=== PATIENT | female | born 1975 | race Caucasian/White ===

== ENCOUNTER 2021-09-22 15:04 | Emergency (ER) | payer OTHER ==
--- OUTSIDE RECORDS SUMMARY | 2021-09-22 15:14 | XMS REPORT | Continuity of Care Document ---
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 00:00: by mouth [place] 00 at Medical bedtime. Branch sumatriptan 2020-0 Yes [id number] 100mg Take 1 [facility] (IMITREX) 8-11 tablet by it[facility] o f 100 mg 00:00: mouth as [place] tablet 00 needed for Medical Migraine. Branch traZODone 2020-0 Yes [id number] 50mg Take 1 [facility] n[facility] 50 mg 8-11 tablet by [facility] of tablet 00:00: mouth at [place] 00 bedtime. Medical Branch metFORMIN 2020-0 Yes [id number] 500mg Take 1 [facility] 500 mg 8-11 tablet by [facility] of tablet 00:00: mouth [place] 00 daily. Medical Branch SUMAtriptan 2020-0 Yes [id number] 50mg Take 1 [facility] 50 mg 8-11 tablet by [facility] of tablet 00:00: mouth [place] 00 daily. Medical [facility] amitriptyli 2020-0 Yes [id number] 10mg Take 1 [facility] ne 10 mg 8-11 tablet by [facility] of tablet 00:00: mouth at [place] 00 bedtime. Medical [facility] levothyroxi 2020-0 Yes [id number] 100ug Take 1 [facility] ne 8-11 tablet by [facility] of (SYNTHROID) 00:00: mouth [place] 100 mcg 00 every Medical tablet morning. Branch gabapentin 0 Yes [id number] 600mg Take 1 [facility] (NEURONTIN) 8-11 tablet by [facility] of 600 mg 00:00: mouth 3 [place] tablet 00 (three) Medical times Branch daily. phenytoin 2020-0 Yes [id number] 400mg Take 2 [facility] ER 200 mg 8-11 capsules [facility] ER capsule 00:00: by mouth [place] 00 at Medical bedtime. Branch sumatriptan Yes [id number] 100mg Take 1 [facility] (IMITREX) 8-11 tablet by ity o f 100 mg 00:00: mouth as [place] tablet 00 needed for Medical Migraine. Branch traZODone Yes [id number] 50mg Take 1 [facility] 50 mg 8-11 tablet by [facility] of tablet 00:00: mouth at [place] 00 bedtime. Medical [facility] metFORMIN 0 Yes [id number] 500mg Take 1 [facility] 500 mg 8-11 tablet by [facility] of tablet 00:00: mouth [place] 00 daily. Medical [facility] SUMAtriptan 0 Yes [id number] 50mg Take 1 [facility] 50 mg 8-11 tablet by [facility] of tablet 00:00: mouth [place] 00 daily. Medical [facility] amitriptyli Yes [id number] 10mg Take 1 [facility] ne 10 mg 8-11 tablet by [facility] of tablet 00:00: mouth at [place] 00 bedtime. Medical [facility] levothyroxi 0 Yes [id number] 100ug Take 1 [facility] ne 8-11 tablet by [facility] of (SYNTHROID) 00:00: mouth [place] 100 mcg 00 every Medical tablet morning. Branch gabapentin 0 Yes [id number] 600mg Take 1 [facility] (NEURONTIN) 8-11 tablet by [facility] of 600 mg 00:00: mouth 3 [place] tablet 00 (three) Medical times Branch daily. phenytoin 2020-0 Yes [id number] 400mg Take 2 [facility] ER 200 mg 8-11 capsules [facility] ER capsule 00:00: by mouth [place] 00 at Medical bedtime. Branch sumatriptan 2020-0 Yes [id number] 100mg Take 1 [facility] (IMITREX) 8-11 tablet by it[facility] o f 100 mg 00:00: mouth as [place] tablet 00 needed for Medical Migraine. Branch traZODone Yes [id number] 50mg Take 1 [facility] 50 mg 8-11 tablet by [facility] of tablet 00:00: mouth at [place] 00 bedtime. Medical Branch metFORMIN Yes [id number] 500mg Take 1 [facility] 500 mg 8-11 tablet by [facility] of tablet 00:00: mouth [place] 00 daily. Medical Branch SUMAtriptan Yes [id number] 50mg Take 1 [facility] 50 mg 8-11 tablet by [facility] of tablet 00:00: mouth [place] 00 daily. Medical Branch amitriptyli Yes [id number] 10mg Take 1 [facility] ne 10 mg 8-11 tablet by [facility] of tablet 00:00: mouth at [place] 00 bedtime. Medical [facility] phenytoin 2020- No [id number] 400mg Take 2 [facility] ER 200 mg 8-11 11-01 capsules it[facility] o f ER capsule 00:00: 00:00 by mouth [place] 00 :00 at Medical bedtime. Branch levothyroxi 2020- No [id number] 100ug Take 1 [facility] ne 8-11 10-01 tablet by [facility] of (SYNTHROID) 00:00: 00:00 mouth [place] 100 mcg 00 :00 every Medical tablet morning. Branch gabapentin Yes [id number] 600mg Take 1 [facility] (NEURONTIN) 6-22 tablet by [facility] of 600 mg 00:00: mouth 3 [place] tablet 00 (three) Medical times Branch daily. gabapentin 2020- No [id number] 600mg Take 1 [facility] (NEURONTIN) 6-22 08-10 tablet by it y of 600 mg 00:00: 00:00 mouth 3 [place] tablet 00 :00 (three) Medical times Branch daily. gabapentin Yes [id number] 600mg Take 1 [facility] (NEURONTIN) 5-05 tablet by [facility] of 600 mg 00:00: mouth 3 [place] tablet 00 (three) Medical times Branch daily. gabapentin 2020- No [id number] 600mg Take 1 [facility] (NEURONTIN) 5-05 06-22 tablet by it y of 600 mg 00:00: 00:00 mouth 3 [place] tablet 00 :00 (three) Medical times Branch daily. levothyroxi 2021-0 Yes [id number] 100ug Take 1 [facility] ne 4-01 tablet by [facility] of (SYNTHROID) 00:00: mouth [place] 100 mcg 00 every Medical tablet morning. Branch levothyroxi 2020-0 Yes [id number] 100ug Take 1 [facility] ne 4-01 tablet by [facility] of (SYNTHROID) 00:00: mouth [place] 100 mcg 00 every Medical tablet morning. Branch levothyroxi 2020-0 Yes [id number] 100ug Take 1 [facility] ne 4-01 tablet by [facility] of (SYNTHROID) 00:00: mouth [place] 100 mcg 00 every Medical tablet morning. Branch levothyroxi 2020-0 Yes [id number] 100ug Take 1 [facility] ne 4-01 tablet by [facility] of (SYNTHROID) 00:00: mouth [place] 100 mcg 00 every Medical tablet morning. Branch levothyroxi 2020- No [id number] 100ug Take 1 [facility] ne 4-01 08-10 tablet by [facility] of (SYNTHROID) 00:00: 00:00 mouth [place] 100 mcg 00 :00 every Medical tablet morning. Branch gabapentin 2020-0 Yes [id number] 600mg Take 1 [facility] (NEURONTIN) 3-18 tablet by [facility] of 600 mg 00:00: mouth 3 [place] tablet 00 (three) Medical times Branch daily. gabapentin 2020-0 Yes [id number] 600mg Take 1 [facility] (NEURONTIN) 3-18 tablet by [facility] of 600 mg 00:00: mouth 3 [place] tablet 00 (three) Medical times Branch daily. gabapentin 2020-0 Yes [id number] 600mg Take 1 [facility] (NEURONTIN) 3-18 tablet by [facility] of 600 mg 00:00: mouth 3 [place] tablet 00 (three) Medical times Branch daily. gabapentin 2020-0 Yes [id number] 600mg Take 1 [facility] (NEURONTIN) 3-18 tablet by [facility] of 600 mg 00:00: mouth 3 [place] tablet 00 (three) Medical times Branch daily. gabapentin 2020-0 2020- No [id number] 600mg Take 1 [facility] (NEURONTIN) 3-18 05-05 tablet by it y of 600 mg 00:00: 00:00 mouth 3 [place] tablet 00 :00 (three) Medical times Branch daily. sumatriptan 2020-0 Yes [id number] 100mg Take 1 [facility] (IMITREX) 1-27 tablet by it[facility] o f 100 mg 00:00: mouth as [place] tablet 00 needed for Medical Migraine. Branch sumatriptan 2020-0 Yes [id number] 100mg Take 1 [facility] (IMITREX) 1-27 tablet by ity o f 100 mg 00:00: mouth as [place] tablet 00 needed for Medical Migraine. Branch sumatriptan 2020-0 Yes [id number] 100mg Take 1 [facility] (IMITREX) 1-27 tablet by ity o f 100 mg 00:00: mouth as [place] tablet 00 needed for Medical Migraine. Branch sumatriptan 0 Yes [id number] 100mg Take 1 [facility] (IMITREX) 1-27 tablet by ity o f 100 mg 00:00: mouth as [place] tablet 00 needed for Medical Migraine. Branch sumatriptan 0 Yes [id number] 100mg Take 1 [facility] (IMITREX) 1-27 tablet by it[facility] o f 100 mg 00:00: mouth as [place] tablet 00 needed for Medical Migraine. Branch sumatriptan 0 Yes [id number] 100mg Take 1 [facility] (IMITREX) 1-27 tablet by ity o f 100 mg 00:00: mouth as [place] tablet 00 needed for Medical Migraine. Branch sumatriptan 0 Yes [id number] 100mg Take 1 [facility] (IMITREX) 1-27 tablet by ity o f 100 mg 00:00: mouth as [place] tablet 00 needed for Medical Migraine. Branch sumatriptan 0 Yes [id number] 100mg Take 1 [facility] (IMITREX) 1-27 tablet by ity o f 100 mg 00:00: mouth as [place] tablet 00 needed for Medical Migraine. Branch sumatriptan 0 Yes [id number] 100mg Take 1 [facility] (IMITREX) 1-27 tablet by ity o f 100 mg 00:00: mouth as [place] tablet 00 needed for Medical Migraine. Branch sumatriptan 2020-0 Yes [id number] 100mg Take 1 [facility] (IMITREX) 1-27 tablet by ity o f 100 mg 00:00: mouth as [place] tablet 00 needed for Medical Migraine. Branch sumatriptan 2020-0 Yes [id number] 100mg Take 1 [facility] (IMITREX) 1-27 tablet by it[facility] o f 100 mg 00:00: mouth as [place] tablet 00 needed for Medical Migraine. Branch sumatriptan Yes [id number] 100mg Take 1 [facility] (IMITREX) 10-25 tablet by it[facility] o f 100 mg 00:00: mouth as [place] tablet 00 needed for Medical Migraine. Branch phenytoin 2021- No [id number] 400mg Take 2 [facility] ER 200 mg 10-25 capsules it[facility] o f ER capsule 00:00: 05:59 by mouth [place] 00 :00 at bedtime Medical for 360 Branch days. phenytoin 2021- No [id number] 400mg Take 2 [facility] ER 200 mg 10-25 capsules it[facility] o f ER capsule 00:00: 05:59 by mouth [place] 00 :00 at bedtime Medical for 360 Branch days. phenytoin 2021- No [id number] 400mg Take 2 [facility] ER 200 mg 10-25 capsules it[facility] o f ER capsule 00:00: 05:59 by mouth [place] 00 :00 at bedtime Medical for 360 Branch days. phenytoin 2021- No [id number] 400mg Take 2 [facility] ER 200 mg 10-25 capsules it[facility] o f ER capsule 00:00: 05:59 by mouth [place] 00 :00 at bedtime Medical for 360 Branch days. phenytoin 2021- No [id number] 400mg Take 2 [facility] ER 200 mg 10-25 capsules it[facility] o f ER capsule 00:00: 05:59 by mouth [place] 00 :00 at bedtime Medical for 360 Branch days. phenytoin 2021- No [id number] 400mg Take 2 [facility] ER 200 mg 10-25 capsules it[facility] o f ER capsule 00:00: 05:59 by mouth [place] 00 :00 at bedtime Medical for 360 Branch days. phenytoin 2021- No [id number] 400mg Take 2 [facility] ER 200 mg 10-25 capsules it[facility] o f ER capsule 00:00: 05:59 by mouth [place] 00 :00 at bedtime Medical for 360 Branch days. phenytoin 2021- No [id number] 400mg Take 2 [facility] ER 200 mg 10-25 capsules it[facility] o f ER capsule 00:00: 05:59 by mouth [place] 00 :00 at bedtime Medical for 360 Branch days. phenytoin 2021- No [id number] 400mg Take 2 [facility] ER 200 mg 10-25 capsules it[facility] o f ER capsule 00:00: 05:59 by mouth [place] 00 :00 at bedtime Medical for 360 Branch days. phenytoin 2021- No [id number] 400mg Take 2 [facility] ER 200 mg 10-25 capsules it[facility] o f ER capsule 00:00: 05:59 by mouth [place] 00 :00 at bedtime Medical for 360 Branch days. phenytoin 2021- No [id number] 400mg Take 2 [facility] ER 200 mg 10-25 capsules it[facility] o f ER capsule 00:00: 05:59 by mouth [place] 00 :00 at bedtime Medical for 360 Branch days. phenytoin 2021- No [id number] 400mg Take 2 [facility] ER 200 mg 10-25 capsules ity o f ER capsule 00:00: 05:59 by mouth [place] 00 :00 at bedtime Medical for 360 Branch days. phenytoin 2020- No [id number] 400mg Take 2 [facility] ER 200 mg 10-25-10 capsules ity o f ER capsule 00:00: 00:00 by mouth [place] 00 :00 at bedtime Medical for 360 Branch days. sumatriptan 2020- No [id number] 100mg Take 1 [facility] (IMITREX) 10-25 08-10 tablet by it[facility] of 100 mg 00:00: 00:00 mouth as [place] tablet 00 :00 needed for Medical Migraine. Branch phenytoin 2020- No [id number] 400mg Take 2 [facility] ER 200 mg 10-25 08-10 capsules ity o f ER capsule 00:00: 00:00 by mouth [place] 00 :00 at bedtime Medical for 360 Branch days. sumatriptan 2020- No [id number] 100mg Take 1 [facility] (IMITREX) 10-25 08-10 tablet by [facility]y of 100 mg 00:00: 00:00 mouth as [place] tablet 00 :00 needed for Medical Migraine. Branch gabapentin 2020- Yes [id number] 600mg Take 1 [facility] (NEURONTIN) 1-08 tablet by [facility] of 600 mg 00:00: mouth 3 [place] tablet 00 (three) Medical times Branch daily. gabapentin 2020-0 Yes [id number] 600mg Take 1 [facility] (NEURONTIN) 1-08 tablet by [facility] of 600 mg 00:00: mouth 3 [place] tablet 00 (three) Medical times Branch daily. gabapentin 2020-0 Yes [id number] 600mg Take 1 [facility] (NEURONTIN) 1-08 tablet by [facility] of 600 mg 00:00: mouth 3 [place] tablet 00 (three) Medical times Branch daily. gabapentin 2020-0 Yes [id number] 600mg Take 1 [facility] (NEURONTIN) 1-08 tablet by [facility] of 600 mg 00:00: mouth 3 [place] tablet 00 (three) Medical times Branch daily. gabapentin 2020-0 Yes [id number] 600mg Take 1 [facility] (NEURONTIN) 1-08 tablet by [facility] of 600 mg 00:00: mouth 3 [place] tablet 00 (three) Medical times Branch daily. gabapentin 2020-0 Yes [id number] 600mg Take 1 [facility] (NEURONTIN) 1-08 tablet by [facility] of 600 mg 00:00: mouth 3 [place] tablet 00 (three) Medical times Branch daily. gabapentin 2020-0 Yes [id number] 600mg Take 1 [facility] (NEURONTIN) 1-08 tablet by [facility] of 600 mg 00:00: mouth 3 [place] tablet 00 (three) Medical times Branch daily. gabapentin 2020-0 Yes [id number] 600mg Take 1 [facility] (NEURONTIN) 1-08 tablet by [facility]y of 600 mg 00:00: mouth 3 [place] tablet 00 (three) Medical times Branch daily. gabapentin 2020-0 Yes [id number] 600mg Take 1 [facility] (NEURONTIN) 1-08 tablet by [facility] of 600 mg 00:00: mouth 3 [place] tablet 00 (three) Medical times Branch daily. gabapentin 2020-0 202- No [id number] 600mg Take 1 [facility] (NEURONTIN) 1-08 02-19 tablet by it y of 600 mg 00:00: 00:00 mouth 3 [place] tablet 00 :00 (three) Medical times Branch daily. HYDROcodone 2019-09 2020- No 1{tbl} Take 1 [facility] n[facility] -acetaminop 2-10 12-10 tablet by it y of hen (NORCO) 18:00: 00:00 mouth [place] 10-325 mg 20 :00 every 6 Medical tablet (six) Branch hours as needed for Pain (scale 7-10). HYDROcodone 2019-09 2020- No 1{tbl} Take 1 [facility] nivers -acetaminop 2-10 12-10 tablet by it y of hen (NORCO) 18:00: 00:00 mouth [place] 10-325 mg 20 :00 every 6 Medical tablet (six) Branch hours as needed for Pain (scale 7-10). HYDROcodone 2019-09 2020- No 1{tbl} Take 1 [facility] nivers -acetaminop 2-10 12-10 tablet by it y of hen (NORCO) 18:00: 00:00 mouth [place] 10-325 mg 20 :00 every 6 Medical tablet (six) Branch hours as needed for Pain (scale 7-10). topiramate 2019-09 2020- No 200mg Take 200 [facility] nivers 200 mg 2-10 12-10 mg by ity of tablet 17:54: 00:00 mouth. : Medical Branch topiramate 2019-09 2020- No 200mg Take 200 [facility] nivers 200 mg 2-10 12-10 mg by ity of tablet 17:54: 00:00 mouth. : Medical Branch topiramate 2019-09 2020- No 200mg Take 200 [facility] nivers 200 mg 2-10 12-10 mg by ity of tablet 17:54: 00:00 mouth. 31 :00 Medical Branch amitriptyli 2019-09 Yes [id number] 10mg Take 1 [facility] ne 10 mg 2-10 tablet by ity of tablet 00:00: mouth at [place] 00 bedtime. Medical Branch gabapentin 2019-09 Yes [id number] 600mg Take 1 [facility] (NEURONTIN) 2-10 tablet by ity of 600 mg 00:00: mouth 3 [place] tablet 00 (three) Medical times Branch daily. amitriptyli 2019-09 Yes [id number] 10mg Take 1 [facility] ne 10 mg 2-10 tablet by ity of tablet 00:00: mouth at [place] 00 bedtime. Medical Branch gabapentin 2019-09 Yes [id number] 600mg Take 1 [facility] (NEURONTIN) 2-10 tablet by ity of 600 mg 00:00: mouth 3 [place] tablet 00 (three) Medical times Branch daily. amitriptyli 2019-09 Yes [id number] 10mg Take 1 [facility] ne 10 mg 2-10 tablet by ity of tablet 00:00: mouth at [place] bedtime. Medical Branch amitriptyli 2019- Yes [id number] 10mg Take 1 [facility] ne 10 mg 2-10 tablet by ity of tablet 00:00: mouth at [place] bedtime. Medical Branch amitriptyli 2019- Yes [id number] 10mg Take 1 [facility] ne 10 mg 2-10 tablet by ity of tablet 00:00: mouth at [place] bedtime. Medical Branch amitriptyli 2019- Yes [id number] 10mg Take 1 [facility] ne 10 mg 2-10 tablet by ity of tablet 00:00: mouth at [place] bedtime. Medical Branch amitriptyli 2019-09 Yes [id number] 10mg Take 1 [facility] ne 10 mg 2-10 tablet by ity of tablet 00:00: mouth at [place] bedtime. Medical Branch amitriptyli 2019-09 Yes [id number] 10mg Take 1 [facility] ne 10 mg 2-10 tablet by ity of tablet 00:00: mouth at [place] [address] bedtime. Medical Branch amitriptyli 2019-09 Yes [id number] 10mg Take 1 [facility] ne 10 mg 2-10 tablet by ity of tablet 00:00: mouth at [place] bedtime. Medical Branch amitriptyli 2019-09 Yes [id number] 10mg Take 1 [facility] ne 10 mg 2-10 tablet by ity of tablet 00:00: mouth at [place] [address] bedtime. Medical Branch amitriptyli 2019- Yes [id number] 10mg Take 1 [facility] ne 10 mg 2-10 tablet by ity of tablet 00:00: mouth at [place] [address] bedtime. Medical Branch amitriptyli 2019- Yes [id number] 10mg Take 1 [facility] ne 10 mg 2-10 tablet by ity of tablet 00:00: mouth at [place] bedtime. Medical Branch amitriptyli 2019-09 Yes [id number] 10mg Take 1 [facility] ne 10 mg 2-10 tablet by ity of tablet 00:00: mouth at [place] [address] bedtime. Medical Branch amitriptyli 2019- Yes [id number] 10mg Take 1 [facility] ne 10 mg 2-10 tablet by ity of tablet 00:00: mouth at [place] [address] bedtime. Medical Branch amitriptyli 2019- Yes [id number] 10mg Take 1 [facility] ne 10 mg 2-10 tablet by ity of tablet 00:00: mouth at [place] 00 bedtime. Medical [facility] amitriptyli 2019-09 Yes [id number] 10mg Take 1 [facility] ne 10 mg 2-10 tablet by [facility]y of tablet 00:00: mouth at [place] 00 bedtime. Medical Branch amitriptyli 2019-09 Yes [id number] 10mg Take 1 [facility] ne 10 mg 2-10 tablet by [facility]y of tablet 00:00: mouth at [place] 00 bedtime. Medical [facility] amitriptyli 2019-09 Yes [id number] 10mg Take 1 [facility] ne 10 mg 2-10 tablet by ity of tablet 00:00: mouth at [place] 00 bedtime. Medical Branch amitriptyli 2019-09- No [id number] 10mg Take 1 [facility] ne 10 mg 2-10 08-10 tablet by ity o f tablet 00:00: 00:00 mouth at [place] 00 :00 bedtime. Medical Branch gabapentin 2019-09- No [id number] 600mg Take 1 [facility] (NEURONTIN) 2-10 01-07 tablet by it y of 600 mg 00:00: 00:00 mouth 3 [place] tablet 00 :00 (three) Medical times Branch daily. levothyroxi 2019-09 Yes [id number] 100ug Take 1 [facility] ne 2-03 tablet by ity of (SYNTHROID) 00:00: mouth [place] 100 mcg 00 every Medical tablet morning. Branch levothyroxi 2019-09 Yes [id number] 100ug Take 1 [facility] ne 2-03 tablet by ity of (SYNTHROID) 00:00: mouth [place] 100 mcg 00 every Medical tablet morning. Branch levothyroxi 2019-09 Yes [id number] 100ug Take 1 [facility] ne 2-03 tablet by ity of (SYNTHROID) 00:00: mouth [place] 100 mcg 00 every Medical tablet morning. Branch levothyroxi 2019-09 Yes [id number] 100ug Take 1 [facility] ne 2-03 tablet by ity of (SYNTHROID) 00:00: mouth [place] 100 mcg 00 every Medical tablet morning. Branch levothyroxi 2019-09 Yes [id number] 100ug Take 1 [facility] ne 2-03 tablet by ity of (SYNTHROID) 00:00: mouth [place] 100 mcg 00 every Medical tablet morning. Branch levothyroxi 2019-09 Yes [id number] 100ug Take 1 [facility] ne 2-03 tablet by ity of (SYNTHROID) 00:00: mouth [place] 100 mcg 00 every Medical tablet morning. Branch levothyroxi 2020- Yes [id number] 100ug Take 1 [facility] ne 2-03 tablet by ity of (SYNTHROID) 00:00: mouth [place] 100 mcg 00 every Medical tablet morning. Branch levothyroxi 2019- Yes [id number] 100ug Take 1 [facility] ne 2-03 tablet by ity of (SYNTHROID) 00:00: mouth [place] 100 mcg 00 every Medical tablet morning. Branch levothyroxi 2019- Yes [id number] 100ug Take 1 [facility] ne 2-03 tablet by ity of (SYNTHROID) 00:00: mouth [place] 100 mcg 00 every Medical tablet morning. Branch levothyroxi 2019- Yes [id number] 100ug Take 1 [facility] ne 2-03 tablet by ity of (SYNTHROID) 00:00: mouth [place] 100 mcg 00 every Medical tablet morning. Branch levothyroxi 2019- Yes [id number] 100ug Take 1 [facility] ne 2-03 tablet by ity of (SYNTHROID) 00:00: mouth [place] 100 mcg 00 every Medical tablet morning. Branch levothyroxi 2019- Yes [id number] 100ug Take 1 [facility] ne 2-03 tablet by ity of (SYNTHROID) 00:00: mouth [place] 100 mcg 00 every Medical tablet morning. Branch levothyroxi 2019- Yes [id number] 100ug Take 1 [facility] ne 2-03 tablet by ity of (SYNTHROID) 00:00: mouth [place] 100 mcg 00 every Medical tablet morning. Branch levothyroxi 2019- Yes [id number] 100ug Take 1 [facility] ne 2-03 tablet by ity of (SYNTHROID) 00:00: mouth [place] 100 mcg 00 every Medical tablet morning. Branch levothyroxi 2019- Yes [id number] 100ug Take 1 [facility] ne 2-03 tablet by ity of (SYNTHROID) 00:00: mouth [place] 100 mcg 00 every Medical tablet morning. Branch levothyroxi 2019- Yes [id number] 100ug Take 1 [facility] ne 2-03 tablet by ity of (SYNTHROID) 00:00: mouth [place] 100 mcg 00 every Medical tablet morning. Branch levothyroxi 2019-09- No [id number] 100ug Take 1 [facility] ne 2-03 04-01 tablet by ity of (SYNTHROID) 00:00: 00:00 mouth [place] 100 mcg 00 :00 every Medical tablet morning. Branch topiramate 2020- Yes 200mg Take 200 [facility] 200 mg 1-09 mg by ity of tablet 15:28: mouth. [address] Branch HYDROcodone 2020- Yes 1{tbl} Take 1 [facility] -acetaminop 1-09 tablet by ity of hen (NORCO) 15:28: mouth [place] 10-325 mg 37 every 6 Medical tablet (six) Branch hours as needed for Pain (scale 7-10). topiramate 2020- Yes 200mg Take 200 [facility] 200 mg 1-09 mg by ity of tablet 15:28: mouth. [address] HYDROcodone 2020- Yes 1{tbl} Take 1 Un [facility] -acetaminop 1-09 tablet by ity of hen (NORCO) 15:28: mouth [place] 10-325 mg 37 every 6 Medical tablet (six) Branch hours as needed for Pain (scale 7-10). topiramate 2019- Yes 200mg Take 200 [facility] 200 mg 1-09 mg by ity of tablet 15:28: mouth. [address] Branch HYDROcodone 2020- Yes 1{tbl} Take 1 [facility] -acetaminop 1-09 tablet by ity of hen (NORCO) 15:28: mouth [place] 10-325 mg 37 every 6 Medical tablet (six) Branch hours as needed for Pain (scale 7-10). topiramate 2020- Yes 200mg Take 200 [facility] 200 mg 1-09 mg by ity of tablet 15:28: mouth. [address] HYDROcodone 2020- Yes 1{tbl} Take 1 Un [facility] -acetaminop 1-09 tablet by ity of hen (NORCO) 15:28: mouth [place] 10-325 mg 37 every 6 Medical tablet (six) Branch hours as needed for Pain (scale 7-10). topiramate 2020- Yes 200mg Take 200 [facility] 200 mg 1-09 mg by ity of tablet 15:28: mouth. [address] HYDROcodone 2020- Yes 1{tbl} Take 1 Un [facility] -acetaminop 1-09 tablet by ity of hen (NORCO) 15:28: mouth [place] 10-325 mg 37 every 6 Medical tablet (six) Branch hours as needed for Pain (scale 7-10). topiramate 2020- Yes 200mg Take 200 [facility] [place] 200 mg 1-09 mg by ity of tablet 15:28: mouth. [address] HYDROcodone 2020- Yes 1{tbl} Take 1 Un [facility] -acetaminop 1-09 tablet by ity of hen (NORCO) 15:28: mouth [place] 10-325 mg 37 every 6 Medical tablet (six) Branch hours as needed for Pain (scale 7-10). topiramate 2020- Yes 200mg Take 200 [facility] [place] 200 mg 1-09 mg by ity of tablet 15:28: mouth. [address] HYDROcodone 2020- Yes 1{tbl} Take 1 Un [facility] -acetaminop 1-09 tablet by ity of hen (NORCO) 15:28: mouth [place] 10-325 mg 37 every 6 Medical tablet (six) Branch hours as needed for Pain (scale 7-10). topiramate 2020- Yes 200mg Take 200 [facility] [place] 200 mg 1-09 mg by ity of tablet 15:28: mouth. [address] HYDROcodone 2020- Yes 1{tbl} Take 1 Un [facility] -acetaminop 1-09 tablet by ity of hen (NORCO) 15:28: mouth [place] 10-325 mg 37 every 6 Medical tablet (six) Branch hours as needed for Pain (scale 7-10). topiramate 2020- Yes 200mg Take 200 [facility] [place] 200 mg 1-09 mg by ity of tablet 15:28: mouth. [address] HYDROcodone 2020- Yes 1{tbl} Take 1 Un [facility] -acetaminop 1-09 tablet by ity of hen (NORCO) 15:28: mouth [place] 10-325 mg 37 every 6 Medical tablet (six) Branch hours as needed for Pain (scale 7-10). topiramate 2020- Yes 200mg Take 200 [facility] [place] 200 mg 1-09 mg by ity of tablet 15:28: mouth. [address] HYDROcodone 2020- Yes 1{tbl} Take 1 Un [facility] -acetaminop 1-09 tablet by ity of hen (NORCO) 15:28: mouth [place] 10-325 mg 37 every 6 Medical tablet (six) Branch hours as needed for Pain (scale 7-10). topiramate 2019-09 Yes 200mg Take 200 [facility] 200 mg 1-09 mg by ity of tablet 15:28: mouth. [place] 37 Medical Branch HYDROcodone 2019- Yes 1{tbl} Take 1 Un [facility] -acetaminop 1-09 tablet by ity of hen (NORCO) 15:28: mouth [place] 10-325 mg 37 every 6 Medical tablet (six) Branch hours as needed for Pain (scale 7-10). SUMAtriptan 2019-09 Yes [id number] 50mg Take 1 [facility] 50 mg 0-20 tablet by [facility] of tablet 00:00: mouth [place] 00 daily. Medical Branch SUMAtriptan 2019-09 Yes [id number] 50mg Take 1 [facility] 50 mg 0-20 tablet by [facility]y of tablet 00:00: mouth [place] 00 daily. Medical Branch SUMAtriptan 2019-09 Yes [id number] 50mg Take 1 [facility] 50 mg 0-20 tablet by [facility]y of tablet 00:00: mouth [place] 00 daily. Medical Branch SUMAtriptan 2019-09 Yes [id number] 50mg Take 1 [facility] 50 mg 0-20 tablet by [facility]y of tablet 00:00: mouth [place] 00 daily. Medical Branch SUMAtriptan 2019-09 Yes [id number] 50mg Take 1 [facility] 50 mg 0-20 tablet by [facility]y of tablet 00:00: mouth [place] 00 daily. Medical Branch SUMAtriptan 2019-09 Yes [id number] 50mg Take 1 [facility] 50 mg 0-20 tablet by [facility]y of tablet 00:00: mouth [place] 00 daily. Medical Branch SUMAtriptan 2019-09 Yes [id number] 50mg Take 1 [facility] 50 mg 0-20 tablet by [facility]y of tablet 00:00: mouth [place] 00 daily. Medical Branch SUMAtriptan 2019-09 Yes [id number] 50mg Take 1 [facility] 50 mg 0-20 tablet by [facility]y of tablet 00:00: mouth [place] 00 daily. Medical Branch SUMAtriptan 2019-09 Yes [id number] 50mg Take 1 [facility] 50 mg 0-20 tablet by [facility]y of tablet 00:00: mouth [place] 00 daily. Medical Branch SUMAtriptan 2019-09 Yes [id number] 50mg Take 1 [facility] 50 mg 0-20 tablet by [facility]y of tablet 00:00: mouth [place] 00 daily. Medical Branch SUMAtriptan 2019- Yes [id number] 50mg Take 1 [facility] 50 mg 0-20 tablet by ity of tablet 00:00: mouth [place] 00 daily. [facility] SUMAtriptan 2020-1 Yes [id number] 50mg Take 1 [facility] 50 mg 0-20 tablet by ity of tablet 00:00: mouth [place] 00 daily. [facility] SUMAtriptan 2019-1 Yes [id number] 50mg Take 1 [facility] 50 mg 0-20 tablet by ity of tablet 00:00: mouth [place] 00 daily. [facility] SUMAtriptan 2019- Yes [id number] 50mg Take 1 [facility] 50 mg 0-20 tablet by ity of tablet 00:00: mouth [place] 00 daily. [facility] SUMAtriptan 2019- Yes [id number] 50mg Take 1 [facility] 50 mg 0-20 tablet by ity of tablet 00:00: mouth [place] 00 daily. [facility] SUMAtriptan 2019- Yes [id number] 50mg Take 1 [facility] 50 mg 0-20 tablet by ity of tablet 00:00: mouth [place] 00 daily. [facility] SUMAtriptan 2019- Yes [id number] 50mg Take 1 [facility] 50 mg 0-20 tablet by ity of tablet 00:00: mouth [place] 00 daily. [facility] SUMAtriptan 2019- Yes [id number] 50mg Take 1 [facility] 50 mg 0-20 tablet by ity of tablet 00:00: mouth [place] 00 daily. [facility] SUMAtriptan 2019- Yes [id number] 50mg Take 1 [facility] 50 mg 0-20 tablet by ity of tablet 00:00: mouth [place] 00 daily. [facility] SUMAtriptan 2019-1 Yes [id number] 50mg Take 1 [facility] 50 mg 0-20 tablet by ity of tablet 00:00: mouth [place] 00 daily. [facility] SUMAtriptan 2019- Yes [id number] 50mg Take 1 [facility] 50 mg 0-20 tablet by ity of tablet 00:00: mouth [place] 00 daily. [facility] SUMAtriptan 2019-1 Yes [id number] 50mg Take 1 [facility] 50 mg 0-20 tablet by ity of tablet 00:00: mouth [place] 00 daily. [facility] SUMAtriptan 2019- Yes [id number] 50mg Take 1 [facility] 50 mg 0-20 tablet by ity of tablet 00:00: mouth [place] 00 daily. [facility] SUMAtriptan 2019-09 Yes [id number] 50mg Take 1 [facility] 50 mg 0-20 tablet by ity of tablet 00:00: mouth [place] 00 daily. [facility] SUMAtriptan 2019-09 Yes [id number] 50mg Take 1 [facility] 50 mg 0-20 tablet by ity of tablet 00:00: mouth [place] 00 daily. [facility] SUMAtriptan 2019-09 Yes [id number] 50mg Take 1 [facility] 50 mg 0-20 tablet by ity of tablet 00:00: mouth [place] 00 daily. [facility] SUMAtriptan 2019-09 Yes [id number] 50mg Take 1 [facility] 50 mg 0-20 tablet by ity of tablet 00:00: mouth [place] 00 daily. [facility] SUMAtriptan 2019-09 Yes [id number] 50mg Take 1 [facility] 50 mg 0-20 tablet by ity of tablet 00:00: mouth [place] 00 daily. [facility] SUMAtriptan 2019-09 Yes [id number] 50mg Take 1 [facility] 50 mg 0-20 tablet by ity of tablet 00:00: mouth [place] 00 daily. [facility] SUMAtriptan 2019-09 Yes [id number] 50mg Take 1 [facility] 50 mg 0-20 tablet by ity of tablet 00:00: mouth [place] 00 daily. [facility] SUMAtriptan 2019-09 Yes [id number] 50mg Take 1 [facility] 50 mg 0-20 tablet by ity of tablet 00:00: mouth [place] 00 daily. [facility] SUMAtriptan 2019-09 Yes [id number] 50mg Take 1 [facility] 50 mg 0-20 tablet by ity of tablet 00:00: mouth [place] 00 daily. [facility] SUMAtriptan 2019-09- No [id number] 50mg Take 1 [facility] 50 mg 0-20 08-10 tablet by ity of tablet 00:00: 00:00 mouth [place] 00 :00 daily. [facility] metFORMIN 2019-09- No 500mg Take 500 Un uzma 500 mg 0-08 10-08 mg by ity of tablet 16:06: 00:00 mouth. [place] 50 :00 Medical Branch metFORMIN 2019-09- No 500mg Take 500 Un uzma 500 mg 0-08 10-08 mg by ity of tablet 16:06: 00:00 mouth. [place] 50 :00 [facility] nortriptyli 2019-09- No [id number] 25mg Take 25 mg [facility] ne 0-08 10-08 by mouth 3 ity of (PAMELOR) 16:04: 00:00 (three) [place] 25 mg 08 :00 times Medical capsule daily. Branch nortriptyli 2020-1 2020- No [id number] 25mg Take 25 mg [facility] ne 0-08 10-08 by mouth 3 ity of (PAMELOR) 16:04: 00:00 (three) [place] 25 mg 08 :00 times Medical capsule daily. Branch topiramate 2020-1 Yes 200mg Take 200 Un uzma 200 mg 0-08 mg by ity of tablet 15:28: mouth. [address] Branch topiramate 2019- Yes 200mg Take 200 Un uzma 200 mg 0-08 mg by ity of tablet 15:28: mouth. [address] Branch topiramate 2019- Yes 200mg Take 200 Un uzma 200 mg 0-08 mg by ity of tablet 15:28: mouth. [address] topiramate 2019- Yes 200mg Take 200 Un uzma 200 mg 0-08 mg by ity of tablet 15:28: mouth. [address] topiramate 2019- Yes 200mg Take 200 Un uzma 200 mg 0-08 mg by ity of tablet 15:28: mouth. [address] Branch topiramate 2020-1 Yes 200mg Take 200 Un uzma 200 mg 0-08 mg by ity of tablet 15:28: mouth. [address] Branch HYDROcodone 2019- Yes 1{tbl} Take 1 Un uzma -acetaminop 0-08 tablet by ity of hen (NORCO) 15:28: mouth [place] 10-325 mg 12 every 6 Medical tablet (six) Branch hours as needed for Pain (scale 7-10). HYDROcodone 2019- Yes 1{tbl} Take 1 Un uzma -acetaminop 0-08 tablet by ity of hen (NORCO) 15:28: mouth [place] 10-325 mg 12 every 6 Medical tablet (six) Branch hours as needed for Pain (scale 7-10). HYDROcodone 2019- Yes 1{tbl} Take 1 Un uzma -acetaminop 0-08 tablet by ity of hen (NORCO) 15:28: mouth [place] 10-325 mg 12 every 6 Medical tablet (six) Branch hours as needed for Pain (scale 7-10). HYDROcodone 2019- Yes 1{tbl} Take 1 Un uzma -acetaminop 0-08 tablet by ity of hen (NORCO) 15:28: mouth [place] 10-325 mg 12 every 6 Medical tablet (six) Branch hours as needed for Pain (scale 7-10). HYDROcodone 2019-09 Yes 1{tbl} Take 1 Un uzma -acetaminop 0-08 tablet by ity of hen (NORCO) 15:28: mouth [place] 10-325 mg 12 every 6 Medical tablet (six) Branch hours as needed for Pain (scale 7-10). HYDROcodone 2019-09 Yes 1{tbl} Take 1 Un uzma -acetaminop 0-08 tablet by ity of hen (NORCO) 15:28: mouth [place] 10-325 mg 12 every 6 Medical tablet (six) Branch hours as needed for Pain (scale 7-10). traZODone 2019-09 Yes [id number] 50mg Take 1 U nivers 50 mg 0-08 tablet by ity of tablet 00:00: mouth at [place] 00 bedtime. Medical Branch metFORMIN 2019-09 Yes [id number] 500mg Take 1 [facility] 500 mg 0-08 tablet by ity of tablet 00:00: mouth [place] 00 daily. [facility] SUMAtriptan 2019-09 Yes [id number] BIDPRN. [facility] 6 mg/0.5 mL 0-08 (max of 12 it y of injection 00:00: mg in 24 [place] 00 hours[place] Medical Inject 6 Branch mg under skin followed by another dose one hour later if headache persists traZODone 2019-09 Yes [id number] 50mg Take 1 U nivers 50 mg 0-08 tablet by ity of tablet 00:00: mouth at [place] 00 bedtime. Medical [facility] metFORMIN 2019-09 Yes 500mg Take 1 Unive rs 500 mg 0-08 tablet by ity of tablet 00:00: mouth [place] 00 daily. [facility] SUMAtriptan 2019-09 Yes BIDPRN. Uni vers 6 mg/0.5 mL 0-08 (max of 12 it y of injection 00:00: mg in 24 [place] 00 hours). Medical Inject 6 Branch mg under skin followed by another dose one hour later if headache persists traZODone 2019-09 Yes [id number] 50mg Take 1 U nivers 50 mg 0-08 tablet by ity of tablet 00:00: mouth at [place] 00 bedtime. Medical Branch metFORMIN 2020- Yes 500mg Take 1 Unive rs 500 mg 0-08 tablet by ity of tablet 00:00: mouth [place] 00 daily. [facility] SUMAtriptan 2019-09 Yes BIDPRN. Uni vers 6 mg/0.5 mL 0-08 (max of 12 it y of injection 00:00: mg in 24 [place] 00 hours). Medical Inject 6 Branch mg under skin followed by another dose one hour later if headache persists traZODone 2019-09 Yes [id number] 50mg Take 1 U nivers 50 mg 0-08 tablet by ity of tablet 00:00: mouth at [place] 00 bedtime. Medical [facility] metFORMIN 2019-09 Yes 500mg Take 1 Unive rs 500 mg 0-08 tablet by ity of tablet 00:00: mouth [place] 00 daily. [facility] SUMAtriptan 2019-09 Yes BIDPRN. Uni vers 6 mg/0.5 mL 0-08 (max of 12 it y of injection 00:00: mg in 24 [place] 00 hours). Medical Inject 6 Branch mg under skin followed by another dose one hour later if headache persists traZODone 2019-09 Yes [id number] 50mg Take 1 U nivers 50 mg 0-08 tablet by ity of tablet 00:00: mouth at [place] 00 bedtime. Medical Branch metFORMIN 2019-09 Yes 500mg Take 1 Unive rs 500 mg 0-08 tablet by ity of tablet 00:00: mouth [place] 00 daily. [facility] SUMAtriptan 2019- Yes BIDPRN. Uni vers 6 mg/0.5 mL 0-08 (max of 12 it y of injection 00:00: mg in 24 [place] 00 hours). Medical Inject 6 Branch mg under skin followed by another dose one hour later if headache persists traZODone 2019-09 Yes [id number] 50mg Take 1 U nivers 50 mg 0-08 tablet by ity of tablet 00:00: mouth at [place] 00 bedtime. Medical Branch metFORMIN 2019- Yes 500mg Take 1 Unive rs 500 mg 0-08 tablet by ity of tablet 00:00: mouth [place] 00 daily. [facility] SUMAtriptan 2019- Yes BIDPRN. Uni vers 6 mg/0.5 mL 0-08 (max of 12 it y of injection 00:00: mg in 24 [place] 00 hours). Medical Inject 6 Branch mg under skin followed by another dose one hour later if headache persists traZODone 2019- Yes [id number] 50mg Take 1 U nivers 50 mg 0-08 tablet by ity of tablet 00:00: mouth at [place] 00 bedtime. [facility] metFORMIN 2019- Yes 500mg Take 1 Unive rs 500 mg 0-08 tablet by ity of tablet 00:00: mouth [place] 00 daily. [facility] SUMAtriptan 2019-09 Yes BIDPRN. Uni vers 6 mg/0.5 mL 0-08 (max of 12 it y of injection 00:00: mg in 24 [place] 00 hours). Medical Inject 6 Branch mg under skin followed by another dose one hour later if headache persists traZODone 2019-09 Yes [id number] 50mg Take 1 U nivers 50 mg 0-08 tablet by ity of tablet 00:00: mouth at [place] 00 bedtime. Medical [facility] metFORMIN 2019- Yes 500mg Take 1 Unive rs 500 mg 0-08 tablet by ity of tablet 00:00: mouth [place] 00 daily. [facility] SUMAtriptan 2019-09 Yes BIDPRN. Uni vers 6 mg/0.5 mL 0-08 (max of 12 it y of injection 00:00: mg in 24 [place] 00 hours). Medical Inject 6 Branch mg under skin followed by another dose one hour later if headache persists traZODone 2019-09 Yes [id number] 50mg Take 1 U nivers 50 mg 0-08 tablet by ity of tablet 00:00: mouth at [place] 00 bedtime. Medical Branch metFORMIN 2019- Yes 500mg Take 1 Unive rs 500 mg 0-08 tablet by ity of tablet 00:00: mouth [place] 00 daily. [facility] SUMAtriptan 2020- Yes BIDPRN. Uni vers 6 mg/0.5 mL 0-08 (max of 12 it y of injection 00:00: mg in 24 [place] 00 hours). Medical Inject 6 Branch mg under skin followed by another dose one hour later if headache persists traZODone 2019-09 Yes [id number] 50mg Take 1 U nivers 50 mg 0-08 tablet by ity of tablet 00:00: mouth at [place] 00 bedtime. Medical Branch metFORMIN 2019- Yes 500mg Take 1 Unive rs 500 mg 0-08 tablet by ity of tablet 00:00: mouth [place] 00 daily. [facility] SUMAtriptan 2019- Yes BIDPRN. Uni vers 6 mg/0.5 mL 0-08 (max of 12 it y of injection 00:00: mg in 24 [place] 00 hours). Medical Inject 6 Branch mg under skin followed by another dose one hour later if headache persists traZODone 2019- Yes [id number] 50mg Take 1 U nivers 50 mg 0-08 tablet by ity of tablet 00:00: mouth at [place] 00 bedtime. Medical Branch metFORMIN 2019-09 Yes 500mg Take 1 Unive rs 500 mg 0-08 tablet by ity of tablet 00:00: mouth [place] 00 daily. Medical [facility] SUMAtriptan 2019-09 Yes BIDPRN. Uni vers 6 mg/0.5 mL 0-08 (max of 12 it y of injection 00:00: mg in 24 [place] 00 hours). Medical Inject 6 Branch mg under skin followed by another dose one hour later if headache persists traZODone 2019-09 Yes [id number] 50mg Take 1 U nivers 50 mg 0-08 tablet by ity of tablet 00:00: mouth at [place] 00 bedtime. Medical Branch metFORMIN 2019-09 Yes 500mg Take 1 Unive rs 500 mg 0-08 tablet by ity of tablet 00:00: mouth [place] 00 daily. Medical [facility] SUMAtriptan 2019-09 Yes BIDPRN. Uni vers 6 mg/0.5 mL 0-08 (max of 12 it y of injection 00:00: mg in 24 [place] 00 hours). Medical Inject 6 Branch mg under skin followed by another dose one hour later if headache persists traZODone 2019-09 Yes [id number] 50mg Take 1 U nivers 50 mg 0-08 tablet by ity of tablet 00:00: mouth at [place] 00 bedtime. [facility] metFORMIN 2019- Yes 500mg Take 1 Unive rs 500 mg 0-08 tablet by ity of tablet 00:00: mouth [place] 00 daily. [facility] SUMAtriptan 2019-09 Yes BIDPRN. Uni vers 6 mg/0.5 mL 0-08 (max of 12 it y of injection 00:00: mg in [place] 00 hours). Medical Inject 6 Branch mg under skin followed by another dose one hour later if headache persists traZODone 2019-09 Yes [id number] 50mg Take 1 U nivers 50 mg 0-08 tablet by ity of tablet 00:00: mouth at [place] 00 bedtime. Medical Branch metFORMIN 2019-09 Yes 500mg Take 1 Unive rs 500 mg 0-08 tablet by ity of tablet 00:00: mouth [place] 00 daily. Medical [facility] SUMAtriptan 2019-09 Yes BIDPRN. Uni vers 6 mg/0.5 mL 0-08 (max of 12 it y of injection 00:00: mg in 24 [place] 00 hours). Medical Inject 6 Branch mg under skin followed by another dose one hour later if headache persists traZODone 2019-09 Yes [id number] 50mg Take 1 U nivers 50 mg 0-08 tablet by ity of tablet 00:00: mouth at [place] 00 bedtime. Medical Branch metFORMIN 2019-09 Yes 500mg Take 1 Unive rs 500 mg 0-08 tablet by ity of tablet 00:00: mouth [place] 00 daily. [facility] SUMAtriptan 2019-09 Yes BIDPRN. Uni vers 6 mg/0.5 mL 0-08 (max of 12 it y of injection 00:00: mg in [place] 00 hours). Medical Inject 6 Branch mg under skin followed by another dose one hour later if headache persists traZODone 2019-09 Yes [id number] 50mg Take 1 U nivers 50 mg 0-08 tablet by ity of tablet 00:00: mouth at [place] 00 bedtime. Medical Branch metFORMIN 2019- Yes 500mg Take 1 Unive rs 500 mg 0-08 tablet by ity of tablet 00:00: mouth [place] 00 daily. Medical [facility] SUMAtriptan 2019-09 Yes BIDPRN. Uni vers 6 mg/0.5 mL 0-08 (max of 12 it y of injection 00:00: mg in 24 [place] 00 hours). Medical Inject 6 Branch mg under skin followed by another dose one hour later if headache persists traZODone 2019-09 Yes [id number] 50mg Take 1 U nivers 50 mg 0-08 tablet by ity of tablet 00:00: mouth at [place] 00 bedtime. Medical Branch metFORMIN 2019-09 Yes 500mg Take 1 Unive rs 500 mg 0-08 tablet by ity of tablet 00:00: mouth [place] 00 daily. [facility] SUMAtriptan 2019- Yes BIDPRN. Uni vers 6 mg/0.5 mL 0-08 (max of 12 it y of injection 00:00: mg in 24 [place] 00 hours). Medical Inject 6 Branch mg under skin followed by another dose one hour later if headache persists traZODone 2019- Yes [id number] 50mg Take 1 U nivers 50 mg 0-08 tablet by ity of tablet 00:00: mouth at [place] 00 bedtime. Medical Branch metFORMIN 2019-09 Yes 500mg Take 1 Unive rs 500 mg 0-08 tablet by ity of tablet 00:00: mouth [place] 00 daily. [facility] Branch traZODone 2019-09 Yes [id number] 50mg Take 1 U nivers 50 mg 0-08 tablet by ity of tablet 00:00: mouth at [place] 00 bedtime. Medical Branch metFORMIN 2019-09 Yes 500mg Take 1 Unive rs 500 mg 0-08 tablet by ity of tablet 00:00: mouth [place] 00 daily. [facility] Branch traZODone 2019- Yes [id number] 50mg Take 1 U nivers 50 mg 0-08 tablet by ity of tablet 00:00: mouth at [place] 00 bedtime. [facility] Branch metFORMIN 2019-09 Yes 500mg Take 1 Unive rs 500 mg 0-08 tablet by ity of tablet 00:00: mouth [place] 00 daily. [facility] Branch traZODone 2019- Yes [id number] 50mg Take 1 U nivers 50 mg 0-08 tablet by ity of tablet 00:00: mouth at [place] 00 bedtime. [facility] Branch metFORMIN 2019- Yes 500mg Take 1 Unive rs 500 mg 0-08 tablet by ity of tablet 00:00: mouth [place] 00 daily. [facility] Branch traZODone 2019-09 Yes [id number] 50mg Take 1 U nivers 50 mg 0-08 tablet by ity of tablet 00:00: mouth at [place] 00 bedtime. [facility] metFORMIN 2019- Yes 500mg Take 1 Unive rs 500 mg 0-08 tablet by ity of tablet 00:00: mouth [place] 00 daily. [facility] traZODone 2019- Yes [id number] 50mg Take 1 U nivers 50 mg 0-08 tablet by ity of tablet 00:00: mouth at [place] 00 bedtime. Medical Branch metFORMIN 2020-1 Yes 500mg Take 1 Unive rs 500 mg 0-08 tablet by ity of tablet 00:00: mouth [place] 00 daily. [facility] Branch traZODone 2020- Yes [id number] 50mg Take 1 U nivers 50 mg 0-08 tablet by ity of tablet 00:00: mouth at [place] 00 bedtime. [facility] metFORMIN 2020- Yes 500mg Take 1 Unive rs 500 mg 0-08 tablet by ity of tablet 00:00: mouth [place] 00 daily. [facility] Branch traZODone 2020- Yes [id number] 50mg Take 1 U nivers 50 mg 0-08 tablet by ity of tablet 00:00: mouth at [place] 00 bedtime. Medical Branch metFORMIN 2019- Yes 500mg Take 1 Unive rs 500 mg 0-08 tablet by ity of tablet 00:00: mouth [place] 00 daily. [facility] Branch traZODone 2019- Yes [id number] 50mg Take 1 U nivers 50 mg 0-08 tablet by ity of tablet 00:00: mouth at [place] 00 bedtime. Medical Branch metFORMIN 2019- Yes 500mg Take 1 Unive rs 500 mg 0-08 tablet by ity of tablet 00:00: mouth [place] 00 daily. Medical Branch traZODone 2020- Yes [id number] 50mg Take 1 U nivers 50 mg 0-08 tablet by ity of tablet 00:00: mouth at [place] 00 bedtime. Medical Branch metFORMIN 2019- Yes 500mg Take 1 Unive rs 500 mg 0-08 tablet by ity of tablet 00:00: mouth [place] 00 daily. Medical Branch traZODone 2020- Yes [id number] 50mg Take 1 U nivers 50 mg 0-08 tablet by ity of tablet 00:00: mouth at [place] 00 bedtime. Medical Branch metFORMIN 2020-1 Yes 500mg Take 1 Unive rs 500 mg 0-08 tablet by ity of tablet 00:00: mouth [place] 00 daily. [facility] Branch traZODone 2020- Yes [id number] 50mg Take 1 U nivers 50 mg 0-08 tablet by ity of tablet 00:00: mouth at [place] 00 bedtime. [facility] Branch metFORMIN 2020-1 Yes 500mg Take 1 Unive rs 500 mg 0-08 tablet by ity of tablet 00:00: mouth [place] 00 daily. Medical Branch traZODone 2020-1 Yes [id number] 50mg Take 1 U nivers 50 mg 0-08 tablet by ity of tablet 00:00: mouth at [place] 00 bedtime. [facility] Branch metFORMIN 2020-1 Yes 500mg Take 1 Unive rs 500 mg 0-08 tablet by ity of tablet 00:00: mouth [place] 00 daily. [facility] Branch traZODone 2020- Yes [id number] 50mg Take 1 U nivers 50 mg 0-08 tablet by ity of tablet 00:00: mouth at [place] 00 bedtime. [facility] Branch metFORMIN 2020-1 Yes 500mg Take 1 Unive rs 500 mg 0-08 tablet by ity of tablet 00:00: mouth [place] 00 daily. [facility] Branch traZODone 2020- Yes [id number] 50mg Take 1 U nivers 50 mg 0-08 tablet by ity of tablet 00:00: mouth at [place] 00 bedtime. [facility] Branch metFORMIN 2019- Yes 500mg Take 1 Unive rs 500 mg 0-08 tablet by ity of tablet 00:00: mouth 00 daily. [facility] Branch traZODone 2020- Yes [id number] 50mg Take 1 U nivers 50 mg 0-08 tablet by ity of tablet 00:00: mouth at [place] 00 bedtime. [facility] Branch metFORMIN 2020-1 Yes 500mg Take 1 Unive rs 500 mg 0-08 tablet by ity of tablet 00:00: mouth [place] 00 daily. [facility] Branch traZODone 2020- Yes [id number] 50mg Take 1 U nivers 50 mg 0-08 tablet by ity of tablet 00:00: mouth at [place] 00 bedtime. [facility] Branch metFORMIN 2020-1 Yes 500mg Take 1 Unive rs 500 mg 0-08 tablet by ity of tablet 00:00: mouth [place] 00 daily. [facility] Branch traZODone 2020-1 Yes [id number] 50mg Take 1 U nivers 50 mg 0-08 tablet by ity of tablet 00:00: mouth at [place] 00 bedtime. Medical Branch metFORMIN 2020-1 Yes 500mg Take 1 Unive rs 500 mg 0-08 tablet by ity of tablet 00:00: mouth [place] 00 daily. [facility] Branch traZODone 2020-1 Yes [id number] 50mg Take 1 U nivers 50 mg 0-08 tablet by ity of tablet 00:00: mouth at [place] 00 bedtime. [facility] Branch metFORMIN 2020-1 Yes 500mg Take 1 Unive rs 500 mg 0-08 tablet by ity of tablet 00:00: mouth [place] 00 daily. [facility] Branch traZODone 2019-09- No [id number] 50mg Take 1 [facility] 50 mg 0-08 08-10 tablet by ity of tablet 00:00: 00:00 mouth at [place] 00 :00 bedtime. Medical Branch metFORMIN 2019-09- No 500mg Take 1 Univ ers 500 mg 0-08 08-10 tablet by ity of tablet 00:00: 00:00 mouth [place] 00 :00 daily. [facility] Branch SUMAtriptan 2019-09- No BIDPRN. Un uzma 6 mg/0.5 mL 0-08 12-10 (max of 12 i ty of injection 00:00: 00:00 mg in 24 [place] :00 hours). Medical Inject 6 Branch mg under skin followed by another dose one hour later if headache persists SUMAtriptan 2019-09 No BIDPRN. Un uzma 6 mg/0.5 mL 0-08 12-10 (max of 12 i ty of injection 00:00: 00:00 mg in 24 [place] 00 :00 hours). Medical Inject 6 Branch mg under skin followed by another dose one hour later if headache persists SUMAtriptan 2019-09 No BIDPRN. Un uzma 6 mg/0.5 mL 0-08 12-10 (max of 12 i ty of injection 00:00: 00:00 mg in 24 [place] :00 hours). Medical Inject 6 Branch mg under skin followed by another dose one hour later if headache persists SUMAtriptan 2019-0 Yes [id number] BIDPRN. [facility] 6 mg/0.5 mL 8-20 (max of 12 it y of injection 00:00: mg in [place] 00 hours). Medical Inject 6 Branch mg under skin followed by another dose one hour later if headache persists SUMAtriptan 2020-0 Yes [id number] BIDPRN. [facility] 6 mg/0.5 mL 8-20 (max of 12 it y of injection 00:00: mg in 24 [place] 00 hours). Medical Inject 6 Branch mg under skin followed by another dose one hour later if headache persists SUMAtriptan 2019- Yes [id number] BIDPRN. [facility] 6 mg/0.5 mL 8-20 (max of 12 it y of injection 00:00: mg in [place] 00 hours). Medical Inject 6 Branch mg under skin followed by another dose one hour later if headache persists SUMAtriptan 2020-0 Yes [id number] BIDPRN. [facility] 6 mg/0.5 mL 8-20 (max of 12 it y of injection 00:00: mg in 24 [place] 00 hours). Medical Inject 6 Branch mg under skin followed by another dose one hour later if headache persists SUMAtriptan 2020-0 2020- No [id number] BIDPRN. [facility] 6 mg/0.5 mL 8-20 10-08 (max of 12 i ty of injection 00:00: 00:00 mg in 24 [place] 00 :00 hours). Medical Inject 6 Branch mg under skin followed by another dose one hour later if headache persists SUMAtriptan 2019-0 2020- No [id number] BIDPRN. [facility] 6 mg/0.5 mL 8-20 10-08 (max of 12 i ty of injection 00:00: 00:00 mg in 24 [place] 00 :00 hours). Medical Inject 6 Branch mg under skin followed by another dose one hour later if headache persists phenytoin 2020-0 2020- No 100mg Take 100 Un uzma Extended 8-13 08-13 mg by ity of (DILANTIN) 17:34: 00:00 mouth 4 [place] 30 mg 44 :00 (four) Medical capsule times Branch daily. phenytoin 2020-0 2020- No 100mg Take 100 Un uzma Extended 8-13 08-13 mg by ity of (DILANTIN) 17:34: 00:00 mouth 4 [place] 30 mg 44 :00 (four) Medical capsule times Branch daily. phenytoin 2020-0 2020- No 100mg Take 100 Un uzma Extended 8-13 08-13 mg by ity of (DILANTIN) 17:34: 00:00 mouth 4 [place] 30 mg 44 :00 (four) Medical capsule times Branch daily. phenytoin 2020-0 2020- No 100mg Take 100 Un uzma Extended 8-13 08-13 mg by ity of (DILANTIN) 17:34: 00:00 mouth 4 [place] 30 mg 44 :00 (four) Medical capsule times Branch daily. SUMAtriptan 2020-0 2020- No [id number] 6mg inject 6 Univers (IMITREX) 6 8-13 08-13 mg under ity of mg/0.5 mL 17:12: 00:00 the skin [place] injection 52 :00 as needed. [facility] SUMAtriptan 2020- No [id number] 6mg inject 6 Univers (IMITREX) 6 8-13 08-13 mg under ity of mg/0.5 mL 17:12: 00:00 the skin [place] injection 52 :00 as needed. [facility] SUMAtriptan 2020- No [id number] 6mg inject 6 Univers (IMITREX) 6 8-13 08-13 mg under ity of mg/0.5 mL 17:12: 00:00 the skin [place] injection 52 :00 as needed. [facility] SUMAtriptan 2020- No [id number] 6mg inject 6 Univers (IMITREX) 6 8-13 08-13 mg under ity of mg/0.5 mL 17:12: 00:00 the skin [place] injection 52 :00 as needed. [facility] nortriptyli 2019-0 Yes [id number] 25mg Take 25 mg Univers ne 8-13 by mouth 3 ity of (PAMELOR) 16:56: (three) [place] 25 mg 30 times Medical capsule daily. Branch topiramate 2019-0 Yes 200mg Take 200 Un uzma 200 mg 8-13 mg by ity of tablet 16:56: mouth. [address] metFORMIN 2019-0 Yes 500mg Take 500 Uni vers 500 mg 8-13 mg by ity of tablet 16:56: mouth. [address] HYDROcodone 2019-0 Yes 1{tbl} Take 1 Un uzma -acetaminop 8-13 tablet by ity of hen (NORCO) 16:56: mouth [place] 10-325 mg 30 every 6 Medical tablet (six) Branch hours as needed for Pain (scale 7-10). nortriptyli 2019-0 Yes [id number] 25mg Take 25 mg Univers ne 8-13 by mouth 3 ity of (PAMELOR) 16:56: (three) [place] 25 mg 30 times Medical capsule daily. Branch topiramate 2020-0 Yes 200mg Take 200 Un uzma 200 mg 8-13 mg by ity of tablet 16:56: mouth. [place] 30 Medical Branch metFORMIN 2020-0 Yes 500mg Take 500 Uni vers 500 mg 8-13 mg by ity of tablet 16:56: mouth. [address] Branch HYDROcodone 2020-0 Yes 1{tbl} Take 1 Un uzma -acetaminop 8-13 tablet by ity of hen (NORCO) 16:56: mouth [place] 10-325 mg 30 every 6 Medical tablet (six) Branch hours as needed for Pain (scale 7-10). nortriptyli 2020-0 Yes [id number] 25mg Take 25 mg Univers ne 8-13 by mouth 3 ity of (PAMELOR) 16:56: (three) [place] 25 mg 30 times Medical capsule daily. Branch topiramate 2020-0 Yes 200mg Take 200 Un uzma 200 mg 8-13 mg by ity of tablet 16:56: mouth. [address] metFORMIN 2020-0 Yes 500mg Take 500 Uni vers 500 mg 8-13 mg by ity of tablet 16:56: mouth. [address] HYDROcodone 2020-0 Yes 1{tbl} Take 1 Un uzma -acetaminop 8-13 tablet by ity of hen (NORCO) 16:56: mouth [place] 10-325 mg 30 every 6 Medical tablet (six) Branch hours as needed for Pain (scale 7-10). nortriptyli 2020-0 Yes [id number] 25mg Take 25 mg [facility] ne 8-13 by mouth 3 ity of (PAMELOR) 16:56: (three) [place] 25 mg 30 times Medical capsule daily. Branch topiramate 2020-0 Yes 200mg Take 200 Un uzma 200 mg 8-13 mg by ity of tablet 16:56: mouth. [address] metFORMIN 2020-0 Yes 500mg Take 500 Uni vers 500 mg 8-13 mg by ity of tablet 16:56: mouth. [address] HYDROcodone 2020-0 Yes 1{tbl} Take 1 Un uzma -acetaminop 8-13 tablet by ity of hen (NORCO) 16:56: mouth [place] 10-325 mg 30 every 6 Medical tablet (six) Branch hours as needed for Pain (scale 7-10). nortriptyli 2020-0 Yes [id number] 25mg Take 25 mg [facility] ne 8-13 by mouth 3 ity of (PAMELOR) 16:56: (three) [place] 25 mg 30 times Medical capsule daily. Branch topiramate 2020-0 Yes 200mg Take 200 Un uzma 200 mg 8-13 mg by ity of tablet 16:56: mouth. [place] [address] Medical Branch metFORMIN 2020-0 Yes 500mg Take 500 Uni vers 500 mg 8-13 mg by ity of tablet 16:56: mouth. [address] Branch HYDROcodone 2020-0 Yes 1{tbl} Take 1 Un uzma -acetaminop 8-13 tablet by ity of hen (NORCO) 16:56: mouth [place] 10-325 mg 30 every 6 Medical tablet (six) Branch hours as needed for Pain (scale 7-10). nortriptyli 2020-0 Yes [id number] 25mg Take 25 mg [facility] ne 8-13 by mouth 3 ity of (PAMELOR) 16:56: (three) [place] 25 mg 30 times Medical capsule daily. Branch topiramate 2020-0 Yes 200mg Take 200 Un uzma 200 mg 8-13 mg by ity of tablet 16:56: mouth. [address] Branch metFORMIN 2020-0 Yes 500mg Take 500 Uni vers 500 mg 8-13 mg by ity of tablet 16:56: mouth. [address] Branch HYDROcodone 2020-0 Yes 1{tbl} Take 1 Un uzma -acetaminop 8-13 tablet by ity of hen (NORCO) 16:56: mouth [place] 10-325 mg 30 every 6 Medical tablet (six) Branch hours as needed for Pain (scale 7-10). nortriptyli 2020-0 Yes [id number] 25mg Take 25 mg [facility] ne 8-13 by mouth 3 ity of (PAMELOR) 16:56: (three) [place] 25 mg 30 times Medical capsule daily. Branch topiramate 2020-0 Yes 200mg Take 200 Un uzma 200 mg 8-13 mg by ity of tablet 16:56: mouth. [place] [address] Medical Branch metFORMIN 2020-0 Yes 500mg Take 500 Uni vers 500 mg 8-13 mg by ity of tablet 16:56: mouth. [address] Branch HYDROcodone 2020-0 Yes 1{tbl} Take 1 Un uzma -acetaminop 8-13 tablet by ity of hen (NORCO) 16:56: mouth [place] 10-325 mg 30 every 6 Medical tablet (six) Branch hours as needed for Pain (scale 7-10). nortriptyli 2020-0 Yes [id number] 25mg Take 25 mg [facility] ne 8-13 by mouth 3 ity of (PAMELOR) 16:56: (three) [place] 25 mg 30 times Medical capsule daily. Branch topiramate 2020-0 Yes 200mg Take 200 Un uzma 200 mg 8-13 mg by ity of tablet 16:56: mouth. [address] metFORMIN 2020-0 Yes 500mg Take 500 Uni vers 500 mg 8-13 mg by ity of tablet 16:56: mouth. [address] HYDROcodone 2020-0 Yes 1{tbl} Take 1 Un uzma -acetaminop 8-13 tablet by ity of hen (NORCO) 16:56: mouth [place] 10-325 mg 30 every 6 Medical tablet (six) Branch hours as needed for Pain (scale 7-10). nortriptyli 2020-0 Yes [id number] 25mg Take 25 mg [facility] ne 8-13 by mouth 3 ity of (PAMELOR) 16:56: (three) [place] 25 mg 30 times Medical capsule daily. Branch topiramate 2020-0 Yes 200mg Take 200 Un uzma 200 mg 8-13 mg by ity of tablet 16:56: mouth. [address] metFORMIN 2020-0 Yes 500mg Take 500 Uni vers 500 mg 8-13 mg by ity of tablet 16:56: mouth. [address] HYDROcodone 2020-0 Yes 1{tbl} Take 1 Un uzma -acetaminop 8-13 tablet by ity of hen (NORCO) 16:56: mouth [place] 10-325 mg 30 every 6 Medical tablet (six) Branch hours as needed for Pain (scale 7-10). nortriptyli 2020-0 Yes [id number] 25mg Take 25 mg [facility] ne 8-13 by mouth 3 ity of (PAMELOR) 16:56: (three) [place] 25 mg 30 times Medical capsule daily. Branch topiramate 2020-0 Yes 200mg Take 200 Un uzma 200 mg 8-13 mg by ity of tablet 16:56: mouth. [address] metFORMIN 2020-0 Yes 500mg Take 500 Uni vers 500 mg 8-13 mg by ity of tablet 16:56: mouth. [address] HYDROcodone 2020-0 Yes 1{tbl} Take 1 Un uzma -acetaminop 8-13 tablet by ity of hen (NORCO) 16:56: mouth [place] 10-325 mg 30 every 6 Medical tablet (six) Branch hours as needed for Pain (scale 7-10). nortriptyli 2020-0 Yes [id number] 25mg Take 25 mg [facility] ne 8-13 by mouth 3 ity of (PAMELOR) 16:56: (three) [place] 25 mg 30 times Medical capsule daily. Branch topiramate 2020-0 Yes 200mg Take 200 Un uzma 200 mg 8-13 mg by ity of tablet 16:56: mouth. [place] 30 Medical Branch metFORMIN 2020-0 Yes 500mg Take 500 Uni vers 500 mg 8-13 mg by ity of tablet 16:56: mouth. [place] 30 Medical Branch HYDROcodone 2020-0 Yes 1{tbl} Take 1 Un uzma -acetaminop 8-13 tablet by ity of hen (NORCO) 16:56: mouth [place] 10-325 mg 30 every 6 Medical tablet (six) Branch hours as needed for Pain (scale 7-10). gabapentin 2020-0 Yes 600mg Take 1 Univ ers (NEURONTIN) 8-13 tablet by ity of 600 mg 00:00: mouth 3 [place] tablet 00 (three) Medical times Branch daily. SUMAtriptan 2020-0 Yes [id number] 6mg inject 0.5 [facility] 6 mg/0.5 mL 8-13 mL under [facility] of injection 00:00: the skin [place] 00 as needed Medical (migraine) Branch . levothyroxi 2020-0 Yes 100ug Take 1 Uni vers ne 8-13 tablet by ity of (SYNTHROID) 00:00: mouth [place] 100 mcg 00 every Medical tablet morning. Branch gabapentin 2020-0 Yes 600mg Take 1 Univ ers (NEURONTIN) 8-13 tablet by ity of 600 mg 00:00: mouth 3 [place] tablet 00 (three) Medical times Branch daily. SUMAtriptan 2020-0 Yes [id number] 6mg inject 0.5 [facility] 6 mg/0.5 mL 8-13 mL under [facility] of injection 00:00: the skin [place] 00 as needed Medical (migraine) Branch . levothyroxi 2020-0 Yes 100ug Take 1 Uni vers ne 8-13 tablet by ity of (SYNTHROID) 00:00: mouth [place] 100 mcg 00 every Medical tablet morning. Branch gabapentin 2020-0 Yes 600mg Take 1 [facility] ers (NEURONTIN) 8-13 tablet by ity of 600 mg 00:00: mouth 3 [place] tablet 00 (three) Medical times Branch daily. SUMAtriptan 2020-0 Yes [id number] 6mg inject 0.5 [facility] 6 mg/0.5 mL 8-13 mL under [facility] of injection 00:00: the skin [place] 00 as needed Medical (migraine) Branch . levothyroxi 2020-0 Yes 100ug Take 1 Uni vers ne 8-13 tablet by ity of (SYNTHROID) 00:00: mouth [place] 100 mcg 00 every Medical tablet morning. Branch gabapentin 2020-0 Yes 600mg Take 1 [facility] ers (NEURONTIN) 8-13 tablet by ity of 600 mg 00:00: mouth 3 [place] tablet 00 (three) Medical times Branch daily. levothyroxi 2020-0 Yes 100ug Take 1 Uni vers ne 8-13 tablet by ity of (SYNTHROID) 00:00: mouth [place] 100 mcg 00 every Medical tablet morning. Branch gabapentin 2020-0 Yes 600mg Take 1 [facility] ers (NEURONTIN) 8-13 tablet by ity of 600 mg 00:00: mouth 3 [place] tablet 00 (three) Medical times Branch daily. levothyroxi 2020-0 Yes 100ug Take 1 Uni vers ne 8-13 tablet by ity of (SYNTHROID) 00:00: mouth [place] 100 mcg 00 every Medical tablet morning. Branch gabapentin 2020-0 Yes 600mg Take 1 [facility] ers (NEURONTIN) 8-13 tablet by ity of 600 mg 00:00: mouth 3 [place] tablet 00 (three) Medical times Branch daily. levothyroxi 2020-0 Yes 100ug Take 1 Uni vers ne 8-13 tablet by ity of (SYNTHROID) 00:00: mouth [place] 100 mcg 00 every Medical tablet morning. Branch gabapentin 2020-0 Yes 600mg Take 1 [facility] ers (NEURONTIN) 8-13 tablet by ity of 600 mg 00:00: mouth 3 [place] tablet 00 (three) Medical times Branch daily. levothyroxi 2020-0 Yes 100ug Take 1 Uni vers ne 8-13 tablet by ity of (SYNTHROID) 00:00: mouth [place] 100 mcg 00 every Medical tablet morning. Branch gabapentin 2020-0 Yes 600mg Take 1 Univ ers (NEURONTIN) 8-13 tablet by ity of 600 mg 00:00: mouth 3 [place] tablet 00 (three) Medical times Branch daily. levothyroxi 2020-0 Yes 100ug Take 1 Uni vers ne 8-13 tablet by ity of (SYNTHROID) 00:00: mouth [place] 100 mcg 00 every Medical tablet morning. Branch gabapentin 2020-0 Yes 600mg Take 1 [facility] ers (NEURONTIN) 8-13 tablet by ity of 600 mg 00:00: mouth 3 [place] tablet 00 (three) Medical times Branch daily. levothyroxi 2020-0 Yes 100ug Take 1 Uni vers ne 8-13 tablet by ity of (SYNTHROID) 00:00: mouth [place] 100 mcg 00 every Medical tablet morning. Branch gabapentin 2020-0 Yes 600mg Take 1 [facility] ers (NEURONTIN) 8-13 tablet by ity of 600 mg 00:00: mouth 3 [place] tablet 00 (three) Medical times Branch daily. levothyroxi 2020-0 Yes 100ug Take 1 Uni vers ne 8-13 tablet by ity of (SYNTHROID) 00:00: mouth [place] 100 mcg 00 every Medical tablet morning. Branch gabapentin 2020-0 Yes 600mg Take 1 [facility] ers (NEURONTIN) 8-13 tablet by ity of 600 mg 00:00: mouth 3 [place] tablet 00 (three) Medical times Branch daily. levothyroxi 2020-0 Yes 100ug Take 1 Uni vers ne 8-13 tablet by ity of (SYNTHROID) 00:00: mouth [place] 100 mcg 00 every Medical tablet morning. Branch gabapentin 2020-0 Yes 600mg Take 1 [facility] ers (NEURONTIN) 8-13 tablet by ity of 600 mg 00:00: mouth 3 [place] tablet 00 (three) Medical times Branch daily. levothyroxi 2020-0 Yes 100ug Take 1 [facility] vers ne 8-13 tablet by ity of (SYNTHROID) 00:00: mouth [place] 100 mcg 00 every Medical tablet morning. Branch gabapentin 2020-0 Yes 600mg Take 1 [facility] ers (NEURONTIN) 8-13 tablet by ity of 600 mg 00:00: mouth 3 [place] tablet 00 (three) Medical times Branch daily. levothyroxi 2020-0 Yes 100ug Take 1 Uni vers ne 8-13 tablet by ity of (SYNTHROID) 00:00: mouth [place] 100 mcg 00 every Medical tablet morning. Branch gabapentin 2020-0 Yes 600mg Take 1 [facility] ers (NEURONTIN) 8-13 tablet by ity of 600 mg 00:00: mouth 3 [place] tablet 00 (three) Medical times Branch daily. levothyroxi 2020-0 Yes 100ug Take 1 Uni vers ne 8-13 tablet by ity of (SYNTHROID) 00:00: mouth [place] 100 mcg 00 every Medical tablet morning. Branch gabapentin 2020-0 Yes 600mg Take 1 [facility] ers (NEURONTIN) 8-13 tablet by ity of 600 mg 00:00: mouth 3 [place] tablet 00 (three) Medical times Branch daily. levothyroxi 2020-0 Yes 100ug Take 1 Uni vers ne 8-13 tablet by ity of (SYNTHROID) 00:00: mouth [place] 100 mcg 00 every Medical tablet morning. Branch gabapentin 2020-0 Yes 600mg Take 1 [facility] ers (NEURONTIN) 8-13 tablet by ity of 600 mg 00:00: mouth 3 [place] tablet 00 (three) Medical times Branch daily. levothyroxi 2020-0 Yes 100ug Take 1 [facility] vers ne 8-13 tablet by ity of (SYNTHROID) 00:00: mouth [place] 100 mcg 00 every Medical tablet morning. Branch gabapentin 2020-0 Yes 600mg Take 1 [facility] ers (NEURONTIN) 8-13 tablet by ity of 600 mg 00:00: mouth 3 [place] tablet 00 (three) Medical times Branch daily. levothyroxi 2020-0 Yes 100ug Take 1 Uni vers ne 8-13 tablet by ity of (SYNTHROID) 00:00: mouth [place] 100 mcg 00 every Medical tablet morning. Branch gabapentin 2020-0 Yes 600mg Take 1 [facility] ers (NEURONTIN) 8-13 tablet by ity of 600 mg 00:00: mouth 3 [place] tablet 00 (three) Medical times Branch daily. levothyroxi 2020-0 Yes 100ug Take 1 Uni vers ne 8-13 tablet by ity of (SYNTHROID) 00:00: mouth [place] 100 mcg 00 every Medical tablet morning. Branch gabapentin 2020-0 Yes 600mg Take 1 [facility] ers (NEURONTIN) 8-13 tablet by ity of 600 mg 00:00: mouth 3 [place] tablet 00 (three) Medical times Branch daily. levothyroxi 2020-0 Yes 100ug Take 1 Uni vers ne 8-13 tablet by ity of (SYNTHROID) 00:00: mouth [place] 100 mcg 00 every Medical tablet morning. Branch gabapentin 2020-0 Yes 600mg Take 1 [facility] ers (NEURONTIN) 8-13 tablet by ity of 600 mg 00:00: mouth 3 [place] tablet 00 (three) Medical times Branch daily. levothyroxi 2020-0 Yes 100ug Take 1 Uni vers ne 8-13 tablet by ity of (SYNTHROID) 00:00: mouth [place] 100 mcg 00 every Medical tablet morning. Branch gabapentin 2020-0 Yes 600mg Take 1 [facility] ers (NEURONTIN) 8-13 tablet by ity of 600 mg 00:00: mouth 3 [place] tablet 00 (three) Medical times Branch daily. levothyroxi 2020-0 Yes 100ug Take 1 Uni vers ne 8-13 tablet by ity of (SYNTHROID) 00:00: mouth [place] 100 mcg 00 every Medical tablet morning. Branch gabapentin 2020-0 Yes 600mg Take 1 [facility] ers (NEURONTIN) 8-13 tablet by ity of 600 mg 00:00: mouth 3 [place] tablet 00 (three) Medical times Branch daily. levothyroxi 2020-0 Yes 100ug Take 1 [facility] vers ne 8-13 tablet by ity of (SYNTHROID) 00:00: mouth [place] 100 mcg 00 every Medical tablet morning. Branch gabapentin 2020-0 Yes 600mg Take 1 [facility] ers (NEURONTIN) 8-13 tablet by ity of 600 mg 00:00: mouth 3 [place] tablet 00 (three) Medical times Branch daily. levothyroxi 2020-0 Yes 100ug Take 1 Uni vers ne 8-13 tablet by ity of (SYNTHROID) 00:00: mouth [place] 100 mcg 00 every Medical tablet morning. Branch gabapentin 2020-0 Yes 600mg Take 1 [facility] ers (NEURONTIN) 8-13 tablet by ity of 600 mg 00:00: mouth 3 [place] tablet 00 (three) Medical times Branch daily. levothyroxi 2020-0 Yes 100ug Take 1 [facility] vers ne 8-13 tablet by ity of (SYNTHROID) 00:00: mouth [place] 100 mcg 00 every Medical tablet morning. Branch gabapentin 2020-0 Yes 600mg Take 1 [facility] ers (NEURONTIN) 8-13 tablet by ity of 600 mg 00:00: mouth 3 [place] tablet 00 (three) Medical times Branch daily. levothyroxi 2020-0 Yes 100ug Take 1 [facility] vers ne 8-13 tablet by ity of (SYNTHROID) 00:00: mouth [place] 100 mcg 00 every Medical tablet morning. Branch gabapentin 2020-0 Yes 600mg Take 1 [facility] ers (NEURONTIN) 8-13 tablet by ity of 600 mg 00:00: mouth 3 [place] tablet 00 (three) Medical times Branch daily. levothyroxi 2020-0 Yes 100ug Take 1 [facility] vers ne 8-13 tablet by ity of (SYNTHROID) 00:00: mouth [place] 100 mcg 00 every Medical tablet morning. Branch gabapentin 2020-0 Yes 600mg Take 1 [facility] ers (NEURONTIN) 8-13 tablet by ity of 600 mg 00:00: mouth 3 [place] tablet 00 (three) Medical times Branch daily. gabapentin 2020-0 Yes 600mg Take 1 [facility] ers (NEURONTIN) 8-13 tablet by ity of 600 mg 00:00: mouth 3 [place] tablet 00 (three) Medical times Branch daily. SUMAtriptan 2020-0 Yes [id number] 6mg inject 0.5 [facility] 6 mg/0.5 mL 8-13 mL under [facility] injection 00:00: [place] 00 as needed Medical (migraine) Branch . levothyroxi 2020-0 Yes 100ug Take 1 Uni vers ne 8-13 tablet by ity of (SYNTHROID) 00:00: mouth [place] 100 mcg 00 every Medical tablet morning. Branch gabapentin 2020-0 2020- No 600mg Take 1 Uni vers (NEURONTIN) 8-13 12-10 tablet by it y of 600 mg 00:00: 00:00 mouth 3 [place] tablet 00 :00 (three) Medical times Branch daily. gabapentin 2020-0 2020- No 600mg Take 1 Uni vers (NEURONTIN) 8-13 12-10 tablet by it y of 600 mg 00:00: 00:00 mouth 3 [place] tablet 00 :00 (three) Medical times Branch daily. gabapentin 2020-0 2020- No 600mg Take 1 Uni vers (NEURONTIN) 8-13 12-10 tablet by it y of 600 mg 00:00: 00:00 mouth 3 [place] tablet 00 :00 (three) Medical times Branch daily. levothyroxi 2020-0 2020- No 100ug Take 1 Un uzma ne 8-13 12-03 tablet by ity of (SYNTHROID) 00:00: 00:00 [place] 100 [place] 00 :00 every Medical tablet morning. Branch SUMAtriptan 2020-0 2020- No [id number] 6mg inject 0.5 [facility] 6 mg/0.5 mL 8-13 08-20 mL under ity of injection 00:00: 00:00 the skin [place] 00 :00 as needed Medical (migraine) Branch . SUMAtriptan 2019- No [id number] 6mg inject 0.5 [facility] 6 mg/0.5 mL 8 08-20 mL under ity of injection 00:00: 00:00 the skin [place] 00 :00 as needed Medical (migraine) Branch . SUMAtriptan 2019- No [id number] 6mg inject 0.5 [facility] 6 mg/0.5 mL 8 08-20 mL under ity of injection 00:00: 00:00 the skin [place] 00 :00 as needed Medical (migraine) Branch . oxyCODone-a Yes 1{tbl} Q4H Take 1 [facility] cetaminophe 8-[address] n 22:33: [facility] (PERCOCET) 18 every 4 l 10-325 mg (four) per tablet hours as needed for moderate pain. topiramate Yes 200mg QD Take 200 [facility] (TOPAMAX) 8-[address] 200 MG 22:33: mouth [facility] tablet 18 daily with l dinner. gabapentin Yes 600mg Q.[id number] Take 600 [facility] (NEURONTIN) 8-14 [id number] mg by s t 600 mg 22:33: 3D mouth 3 [facility] tablet 18 (three) l times a day. metFORMIN Yes 500mg Q.5D Take 500 [facility] (GLUCOPHAGE 8-[address] ) 500 mg 22:33: mouth 2 Hospit a tablet 18 (two) l times a day with meals. acetaminoph Yes 1,000 mg = Memoria en 500 mg 9-30 2 tab, PO, l oral tablet 16:36: Q6Hnow, Her durán 00 PRN Pain Score 6-10, # 50 tab, 0 Refill(s) 24 HR Yes = 1 patch, Memori a Nicotine 9-30 TOP, l 0.875 MG/HR 16:36: Daily, X He rmann Transdermal 00 14 day, # Patch 14 patch, [Nicoderm 0 C-Q] Refill(s) topiramate Yes 25 mg = 1 Me moria 25 mg oral 9-30 cap, PO, l capsule 16:36: Q12H, # 20 Herm sarah 00 cap, 0 Refill(s) tizanidine Yes 2 mg = 1 Mem oria 2 mg oral 9-30 tab, PO, l tablet 16:36: Q8H, # 15 [place] n 00 tab, 0 Refill(s) methocarbam Yes 1,000 mg = Memoria ol 500 mg 9-30 2 tab, PO, l oral tablet 16:36: Q8H, # 30 H ermann 00 tab, 0 Refill(s) Oxycodone Yes 5 mg = 1 Isiah grace Hydrochlori 9-30 tab, PO, l de 5 MG 16:36: Q8H, PRN [place] n Oral Tablet 00 Pain Score 7-10, 0 Refill(s) Docusate Yes 100 mg = 1 Mem oria Sodium 100 9-30 cap, PO, l MG Oral 16:36: BID, # 20 Ashlie nn Capsule 00 cap, 0 Refill(s) gabapentin Yes 600 mg = 1 M emoria 600 MG Oral 9-30 tab, PO, l Tablet 16:36: TID, # 30 [place] n 00 tab, 0 Refill(s) phenytoin Yes 300 mg = 3 Me moria 100 mg oral 9-30 cap, PO, l capsule, 16:36: Bedtime, # Her durán extended 00 30 cap, 0 release Refill(s) gabapentin No Notes: Memor ia 600 MG Oral 06-28 (Same as: l Tablet 14:00: Neurontin) Ashlie nn 00 Topamax No Notes: [facility]oria 06-28 Sprinkle l 02:00: formulatio [place] 00 n. (Same As: Topamax) Dilantin No Notes: [facility] 06-28 (Same as: l 02:00: Dilantin) [place] 00 Do not open, crush, or chew. tizanidine No Notes: Memor ia 06-27 (Same As: l 21:00: Zanaflex) [place] 00 ketOROLAC No 4 days Mem[facility] ia 30 mg/mL 06-27 l injectable 17:00: MEDICATION H ermann solution 00 WASTE Product Size: 30 mg Product Wasted: ___ mg Dexamethaso No 8 mg, [facility] ia ne 06-27 Route: IV, l 15:30: ONCE, [place] 00 Dosing Weight 63.636, kg, Start date: 06/27/16 10:30:00 CDT, Stop date: 06/27/16 10:30:00 CDT Dexamethaso No Notes: Isiah grace ne 06-27 Concentrat l 15:18: ion: [place] 00 4mg/ml remove No Notes: Memoria patch 06-27 Remove old l 14:00: patch [place] before applicatio n of new patch. WASTE: F/P - P Waste Black; E - P Waste Black Robaxin No Notes: [facility]oria 06-27 (Same l 05:00: as:Robaxin Remy ) Acetaminoph No Notes: Max [facility] en 06-26 acetaminop l 23:00: hen 4000 [place] 00 mg/day (4 gm/day). (Same as: Tylenol Extra Strength) Docusate No Notes: [facility] 06-26 (Same as: l 22:00: Colace) [place] 00 (Do Not Crush) Dilantin No Notes: [facility] 06-26 (Same as: l 22:00: Dilantin) [place] 00 Do not open, crush, or chew. Phenytoin No 200 mg = 2 Me moria sodium 100 06-26 cap, PO, l MG Extended 19:38: BID, 0 Herm sarah Release 00 Refill(s) Capsule [Dilantin] Tramadol No 100 mg, Memori a 06-26 Route: PO, l 17:00: Drug form: [place] 00 TAB, Q6Hnow, Dosing Weight 63.636, kg, Start date: 06/26/16 12:00:00 CDT, Duration: 30 day, Stop date: 07/26/16 6:00:00 CDT Oxycodone No Notes: Memori a Hydrochlori 06-26 (Same as: l de 5 MG 16:30: Roxicodone Herm sarah Oral Tablet ) Ativan No Notes: [facility]oria 06-26 (Same as: l 16:22: Ativan) Dilantin No Notes: [facility] 06-26 (Same as: l 15:00: Dilantin) Rinse packet/syr suhail with water "Caution of interactio n with continuous NG feedings: Withhold administra tion of nutritiona l supplement s for 1-2 hours before and after phenytoin dose". gabapentin No Notes: Memor ia 800 MG Oral 06-26 (Same as: l Tablet 14:00: Neurontin) Ashlie Nicotine No Notes: [facility]oria 06-26 (Same as: l 14:00: Habitrol) "Remove old patch before applicatio n of new patch" WASTE: F/P - P Waste Black; E - P Waste Black Tylenol No Notes: Do Memor ia 06-26 not exceed l 11:00: 4 gm/day. (Same as: Tylenol) fosphenytoi No Notes: Isiah grace n 06-26 (Same as: l 10:30: Cerebyx) Stated mg = mgPE. Refriger ate ANTICONVUL FRANKY Do not confuse with celebrex. MEDICATION WASTE Product Size: 500 mg Product Wasted: ___ mg Dilantin No Notes: [facility]oria 06-26 (Same as: l 08:00: Dilantin) Do not open, crush, or chew. Dilaudid No Notes: [facility] 06-26 (Same as: l 06:17: Dilaudid) Dilaudid No Notes: [facility] 06-26 (Same as: l 05:46: Dilaudid) gabapentin No 600 mg = 1 M emoria 600 MG Oral 06-26 tab, PO, l Tablet 05:08: TID, 0 [place] 00 Refill(s) Phenytoin No 100 mg = 1 Me moria sodium 100 06-26 cap, PO, l MG Extended 05:08: QID, 0 Herm sarah Refill(s) Capsule [Dilantin] Flexeril No Notes: [facility]oria 06-26 (Same As: l 04:07: Flexeril) [place] 00 Morphine No Notes: [facility]oria 06-26 (Same l 04:02: as:MORPhin [place] e Sulfate) Enoxaparin No Notes: Memor ia 06-26 (Same as: l 04:00: Lovenox) Remy 00 Morphine No Notes: [facility] 06-26 (Same l 03:58: as:MORPhin [place] e Sulfate) Acetaminoph No Notes: Isiah grace en 325 MG / 06-26 (Same as: l Hydrocodone 03:58: [place] Ashlie nn Bitartrate 00 325/5) Do 5 MG Oral not exceed Tablet 4gm/day of acetaminop hen. Docusate No Notes: [facility]oria 06-26 (Same as: l 03:58: Colace) [place] (Do Not Crush) Acetaminoph No Notes: Do M emoria en 06-26 not exceed l 03:58: 4 gm/day. Remy (Same as: Tylenol) Ondansetron No Notes: Isiah grace 06-26 (Same as: l 03:58: Zofran) MEDICATION WASTE Product Size: 4 mg Product Wasted: ___ mg Dilaudid No 1 mg, Memoria 06-26 Route: l 02:37: IVP, ONCE, Dosing Weight 63.636, kg, Priority: STAT, Start date: 06/25/16 21:37:00 CDT, Stop date: 06/25/16 21:37:00 CDT Dilaudid No 1 mg, Memoria 06-26 Route: l 01:04: IVP, ONCE, Dosing Weight 63.636, kg, Priority: STAT, Start date: 06/25/16 20:04:00 CDT, Stop date: 06/25/16 20:04:00 CDT Morphine No 8 mg, Memoria 06-25 Route: l 23:52: IVP, ONCE, Dosing Weight 63.636, kg, Priority: STAT, Start date: 06/25/16 18:52:00 CDT, Stop date: 06/25/16 18:52:00 CDT Morphine 2015-0 No 8 mg, [facility]oria 06-25 Route: l 22:36: IVP, ONCE, Dosing Weight 63.636, kg, Priority: STAT, Start date: 06/25/16 17:36:00 CDT, Stop date: 06/25/16 17:36:00 CDT Flexeril No Notes: [facility] 06-25 (Same As: l 21:52: Flexeril) Fentanyl 0 No 50 Memoria - microgram, l 21:47: Route: IVP, ONCE, Dosing Weight 63.636, kg, Priority: STAT, Start date: 06/25/16 16:47:00 CDT, Stop date: 06/25/16 16:47:00 CDT Morphine 0 No 8 mg, [facility]oria 06-25 Route: l 21:11: IVP, ONCE, Dosing Weight 63.636, kg, Priority: STAT, Start date: 06/25/16 16:11:00 CDT, Stop date: 06/25/16 16:11:00 CDT Saline No Notes: [facility]oria Flush 0.9% 05-27 (Same as: l 23:27: BD Posiflush) Acetaminoph 2014-09 Yes 1 cap, PO, Memoria en 300 MG / 0-30 Q4H, PRN l butalbital 00:33: PRN [place] 50 MG / 00 Headache, Caffeine 40 Do not MG Oral exceed 6 Capsule capsules [Fioricet] in 24 hours, X 10 day, # 60 cap, 0 Refill(s) Acetaminoph 2014-09 No 1 tab, Isiah grace en 325 MG / 0-29 Route: PO, l Hydrocodone 22:19: Drug Form: Remy Bitartrate 00 TAB, 5 MG Oral Dosing Tablet Weight [[place] 63.636, 5/325] kg, ONCE, STAT, Start date: 07/27/15 17:19:00, Stop date: 07/27/15 17:19:00 Hydromorpho 2014-09 No 1 mg, Memor ia ne 0 Route: IM, l 20:14: ONCE, Dosing Weight 63.636, kg, Start date: 07/27/15 15:14:00, Stop date: 07/27/15 15:14:00 Benadryl 2014-09 No Notes: [facility] 0-29 (Same as: l 18:06: Benadryl) Sodium 2014-09 No 1,000 mL, Memori a Chloride 0-29 1,000 l 0.154 18:06: ml/hr, MEQ/ML 00 Infuse Injectable Over: 1 Solution hr, Route: IV, 1,000, Drug form: INJ, ONCE, Priority: STAT, Dosing Weight 63.636 kg, Start date: 07/27/15 13:06:00, Duration: 1 doses or times, Stop date: 07/27/15 13:06:00 Compazine 2014-09 No Notes: Memori a 0-29 (Same as: l 18:06: Compazine) levothyroxi 2020- No [id number] 100ug Take 1 Tab [facility] ne 10-24 by mouth [facility] of (SYNTHROID) 00:00[place] 100 [place] 00 :00 morning. Medical tablet Branch traMADOL 2020- No [id number] 50mg Take 1 Tab [facility] (ULTRAM) 50 10-24 by mouth [facility] of mg tablet 00:00: 00:00 [place] 6 [place] :00 (six) Medical hours as Branch needed for Pain unrelieved by non-narcot ic analgesics . levothyroxi 2020- No [id number] 100ug Take 1 Tab [facility] ne 10-24 by mouth [facility] of (SYNTHROID) 00:00: 00:00 [place] 100 [place] 00 :00 morning. Medical tablet Branch traMADOL 2020- No [id number] 50mg Take 1 Tab [facility] (ULTRAM) 50 10-24 by mouth [facility] of mg tablet 00:00: 00:00 [place] 6 [place] 00 :00 (six) Medical hours as Branch needed for Pain unrelieved by non-narcot ic analgesics . levothyroxi 2020- No [id number] 100ug Take 1 Tab [facility] ne 10-24 by mouth ity of (SYNTHROID) [place] :00 morning. Medical tablet Branch traMADOL 2019- No [id number] 50mg Take 1 Tab Univers (ULTRAM) 50 10-24 by mouth ity of mg tablet 00:00: 00:[place] (six) Medical hours as Branch needed for Pain unrelieved by non-narcot ic analgesics . levothyroxi 2020- No [id number] 100ug Take 1 Tab Univers ne 10-24 by mouth ity of (SYNTHROID) 00:00: 00:[place] 100 [place] 00 :00 morning. Medical tablet Branch traMADOL 2019- No [id number] 50mg Take 1 Tab Univers (ULTRAM) 50 10-24 by mouth ity of mg tablet 00:00: 00:[place] (six) Medical hours as Branch needed for Pain unrelieved by non-narcot ic analgesics . gabapentin 2009-09- No 600mg Take 1 Tab Univers (NEURONTIN) 0-13 by mouth 3 i ty of 600 mg 00:00: 00:00 (three) [place] tablet 00 :00 times Medical daily. Branch gabapentin 2009-09- No 600mg Take 1 Tab Univers (NEURONTIN) 0 08-13 by mouth 3 i ty of 600 mg 00:00: 00:00 (three) [place] tablet 00 :00 times Medical daily. Branch gabapentin 2009-09- No 600mg Take 1 Tab Univers (NEURONTIN) 0- 08-13 by mouth 3 i ty of 600 mg 00:00: 00:00 (three) [place] tablet 00 :00 times Medical daily. Branch gabapentin 2009-09- No 600mg Take 1 Tab Univers (NEURONTIN) 0- 08-13 by mouth 3 i ty of 600 mg 00:00: 00:00 (three) [place] tablet 00 :00 times Medical daily. Branch No known No Univers medications ity of [facility] Immunizations Ordered Filled Immunization Date Status Comments [facility] e Immunization Name Name SARS-COV-2 COVID-19 2021-02-15 Completed Unive rsity of LUCIANO/J&J VACCINE 00:00:00 [facility] SARS-COV-2 COVID-19 2021-02-15 Completed Unive rsity of LUCIANO/J&J VACCINE 00:00:00 [facility] SARS-COV-2 COVID-19 2021-02-15 Completed Unive rsity of LUCIANO/J&J VACCINE 00:00:00 [facility] SARS-COV-2 COVID-19 2021-02-15 Completed Unive rsity of LUCIANO/J&J VACCINE 00:00:00 [facility] SARS-COV-2 COVID-19 2021-02-15 Completed Unive rsity of LUCIANO/J&J VACCINE 00:00:00 [facility] SARS-COV-2 COVID-19 2021-02-15 Completed Unive rsity of LUCIANO/J&J VACCINE 00:00:00 [facility] SARS-COV-2 COVID-19 2021-02-15 Completed Unive rsity of LUCIANO/J&J VACCINE 00:00:00 [facility] SARS-COV-2 COVID-19 2021-02-15 Completed Unive rsity of LUICANO/J&J VACCINE 00:00:00 [facility] SARS-COV-2 COVID-19 2021-02-15 Completed Unive rsity of LUCIANO/J&J VACCINE 00:00:00 [facility] SARS-COV-2 COVID-19 2021-02-15 Completed Unive rsity of LUCIANO/J&J VACCINE 00:00:00 [facility] SARS-COV-2 COVID-19 2021-02-15 Completed Unive rsity of LUCIANO/J&J VACCINE 00:00:00 [facility] SARS-COV-2 COVID-19 2021-02-15 Completed Unive rsity of LUCIANO/J&J VACCINE 00:00:00 [facility] SARS-COV-2 COVID-19 2021-02-15 Completed Unive rsity of LUCIANO/J&J VACCINE 00:00:00 [facility] SARS-COV-2 COVID-19 2021-02-15 Completed Unive rsity of LUCIANO/J&J VACCINE 00:00:00 [facility] Pneumococcal 2020-07-06 Completed University o f Polysaccharide, 00:00:00 [facility] PPSV23 (PNEUMOVAX) Branch Influenza Virus 2020-07-06 Completed Universit y of Vaccine Quad .5 mL 00:00:00 [facility] IM 6+ MO Branch Pneumococcal 2020-07-06 Completed University o f Polysaccharide, 00:00:00 [place] [facility] ical PPSV23 (PNEUMOVAX) Branch Influenza Virus 2020-07-06 Completed Universit y of Vaccine Quad .5 mL 00:00:00 [place] [facility] IM 6+ MO Branch Pneumococcal 2020-07-06 Completed University o f Polysaccharide, 00:00:00 [place] [facility] ical PPSV23 (PNEUMOVAX) Branch Influenza Virus 2020-07-06 Completed Universit y of Vaccine Quad .5 mL 00:00:00 [place] [facility] IM 6+ MO Branch Pneumococcal 2020-07-06 Completed University o f Polysaccharide, 00:00:00 [place] [facility] ical PPSV23 (PNEUMOVAX) Branch Influenza Virus 2020-07-06 Completed Universit y of Vaccine Quad .5 mL 00:00:00 [place] [facility] IM 6+ MO Branch Pneumococcal 2020-07-06 Completed University o f Polysaccharide, 00:00:00 [place] [facility] ical PPSV23 (PNEUMOVAX) Branch Influenza Virus 2020-07-06 Completed Universit y of Vaccine Quad .5 mL 00:00:00 [place] [facility] IM 6+ MO Branch Pneumococcal 2020-07-06 Completed University o f Polysaccharide, 00:00:00 [place] [facility] ical PPSV23 (PNEUMOVAX) Branch Influenza Virus 2020-07-06 Completed Universit y of Vaccine Quad .5 mL 00:00:00 [place] [facility] IM 6+ MO Branch Pneumococcal 2020-07-06 Completed University o f Polysaccharide, 00:00:00 [place] [facility] ical PPSV23 (PNEUMOVAX) Branch Influenza Virus 2020-07-06 Completed Universit y of Vaccine Quad .5 mL 00:00:00 [place] [facility] IM 6+ MO Branch Pneumococcal 2020-07-06 Completed University o f Polysaccharide, 00:00:00 [place] [facility] ical PPSV23 (PNEUMOVAX) Branch Influenza Virus 2020-07-06 Completed Universit y of Vaccine Quad .5 mL 00:00:00 [place] [facility] IM 6+ MO Branch Pneumococcal 2020-07-06 Completed University o f Polysaccharide, 00:00:00 [place] [facility] ical PPSV23 (PNEUMOVAX) Branch Influenza Virus 2020-07-06 Completed Universit y of Vaccine Quad .5 mL 00:00:00 [place] [facility] IM 6+ MO Branch Pneumococcal 2020-07-06 Completed University o f Polysaccharide, 00:00:00 [place] [facility] ical PPSV23 (PNEUMOVAX) Branch Influenza Virus 2020-07-06 Completed Universit y of Vaccine Quad .5 mL 00:00:00 [place] [facility] IM 6+ MO Branch Pneumococcal 2020-07-06 Completed University o f Polysaccharide, 00:00:00 [place] [facility] ical PPSV23 (PNEUMOVAX) Branch Influenza Virus 2020-07-06 Completed Universit y of Vaccine Quad .5 mL 00:00:00 [place] [facility] IM 6+ MO Branch Pneumococcal 2020-07-06 Completed University o f Polysaccharide, 00:00:00 [place] [facility] ical PPSV23 (PNEUMOVAX) Branch Influenza Virus 2020-07-06 Completed Universit y of Vaccine Quad .5 mL 00:00:00 [place] [facility] IM 6+ MO Branch Pneumococcal 2020-07-06 Completed University o f Polysaccharide, 00:00:00 [place] [facility] ical PPSV23 (PNEUMOVAX) Branch Influenza Virus 2020-07-06 Completed Universit y of Vaccine Quad .5 mL 00:00:00 [place] [facility] IM 6+ MO Branch Pneumococcal 2020-07-06 Completed University o f Polysaccharide, 00:00:00 [place] [facility] ical PPSV23 (PNEUMOVAX) Branch Influenza Virus 2020-07-06 Completed Universit y of Vaccine Quad .5 mL 00:00:00 [place] [facility] IM 6+ MO Branch Pneumococcal 2020-07-06 Completed University o f Polysaccharide, 00:00:00 [place] [facility] ical PPSV23 (PNEUMOVAX) Branch Influenza Virus 2020-07-06 Completed Universit y of Vaccine Quad .5 mL 00:00:00 [place] [facility] IM 6+ MO Branch Pneumococcal 2020-07-06 Completed University o f Polysaccharide, 00:00:00 [place] [facility] ical PPSV23 (PNEUMOVAX) Branch Influenza Virus 2020-07-06 Completed Universit y of Vaccine Quad .5 mL 00:00:00 [place] [facility] IM 6+ MO Branch Pneumococcal 2020-07-06 Completed University o f Polysaccharide, 00:00:00 [place] [facility] ical PPSV23 (PNEUMOVAX) Branch Influenza Virus 2020-07-06 Completed Universit y of Vaccine Quad .5 mL 00:00:00 [place] [facility] IM 6+ MO Branch Pneumococcal 2020-07-06 Completed University o f Polysaccharide, 00:00:00 [place] [facility] ical PPSV23 (PNEUMOVAX) Branch Influenza Virus 2020-07-06 Completed Universit y of Vaccine Quad .5 mL 00:00:00 [place] [facility] IM 6+ MO Branch Pneumococcal 2020-07-06 Completed University o f Polysaccharide, 00:00:00 [place] [facility] ical PPSV23 (PNEUMOVAX) Branch Influenza Virus 2020-07-06 Completed Universit y of Vaccine Quad .5 mL 00:00:00 [place] [facility] IM 6+ MO Branch Pneumococcal 2020-07-06 Completed University o f Polysaccharide, 00:00:00 [place] [facility] ical PPSV23 (PNEUMOVAX) Branch Influenza Virus 2020-07-06 Completed Universit y of Vaccine Quad .5 mL 00:00:00 [place] [facility] IM 6+ MO Branch Pneumococcal 2020-07-06 Completed University o f Polysaccharide, 00:00:00 [place] [facility] ical PPSV23 (PNEUMOVAX) Branch Influenza Virus 2020-07-06 Completed Universit y of Vaccine Quad .5 mL 00:00:00 [place] [facility] IM 6+ MO Branch Pneumococcal 2020-07-06 Completed University o f Polysaccharide, 00:00:00 [place] [facility] ical PPSV23 (PNEUMOVAX) Branch Influenza Virus 2020-07-06 Completed Universit y of Vaccine Quad .5 mL 00:00:00 [place] [facility] IM 6+ MO Branch Pneumococcal 2020-07-06 Completed University o f Polysaccharide, 00:00:00 [place] [facility] ical PPSV23 (PNEUMOVAX) Branch Influenza Virus 2020-07-06 Completed Universit y of Vaccine Quad .5 mL 00:00:00 [place] [facility] IM 6+ MO Branch Pneumococcal 2020-07-06 Completed University o f Polysaccharide, 00:00:00 [place] [facility] ical PPSV23 (PNEUMOVAX) Branch Influenza Virus 2020-07-06 Completed Universit y of Vaccine Quad .5 mL 00:00:00 [place] [facility] IM 6+ MO Branch Pneumococcal 2020-07-06 Completed University o f Polysaccharide, 00:00:00 [place] [facility] ical PPSV23 (PNEUMOVAX) Branch Influenza Virus 2020-07-06 Completed Universit y of Vaccine Quad .5 mL 00:00:00 [place] [facility] IM 6+ MO Branch Pneumococcal 2020-07-06 Completed University o f Polysaccharide, 00:00:00 [place] [facility] ical PPSV23 (PNEUMOVAX) Branch Influenza Virus 2020-07-06 Completed Universit y of Vaccine Quad .5 mL 00:00:00 [place] [facility] IM 6+ MO Branch Pneumococcal 2020-07-06 Completed University o f Polysaccharide, 00:00:00 [place] [facility] ical PPSV23 (PNEUMOVAX) Branch Influenza Virus 2020-07-06 Completed Universit y of Vaccine Quad .5 mL 00:00:00 [place] [facility] IM 6+ MO Branch Pneumococcal 2020-07-06 Completed University o f Polysaccharide, 00:00:00 [place] [facility] ical PPSV23 (PNEUMOVAX) Branch Influenza Virus 2020-07-06 Completed Universit y of Vaccine Quad .5 mL 00:00:00 [place] [facility] IM 6+ MO Branch Pneumococcal 2020-07-06 Completed University o f Polysaccharide, 00:00:00 [place] [facility] ical PPSV23 (PNEUMOVAX) Branch Influenza Virus 2020-07-06 Completed Universit y of Vaccine Quad .5 mL 00:00:00 [place] [facility] IM 6+ MO Branch Pneumococcal 2020-07-06 Completed University o f Polysaccharide, 00:00:00 [place] [facility] ical PPSV23 (PNEUMOVAX) Branch Influenza Virus 2020-07-06 Completed Universit y of Vaccine Quad .5 mL 00:00:00 [place] [facility] IM 6+ MO Branch Pneumococcal 2020-07-06 Completed University o f Polysaccharide, 00:00:00 [place] [facility] ical PPSV23 (PNEUMOVAX) Branch Influenza Virus 2020-07-06 Completed Universit y of Vaccine Quad .5 mL 00:00:00 [place] [facility] IM 6+ MO Branch Pneumococcal 2020-07-06 Completed University o f Polysaccharide, 00:00:00 [place] [facility] ical PPSV23 (PNEUMOVAX) Branch Influenza Virus 2020-07-06 Completed Universit y of Vaccine Quad .5 mL 00:00:00 [place] [facility] IM 6+ MO Branch Pneumococcal 2020-07-06 Completed University o f Polysaccharide, 00:00:00 [place] [facility] ical PPSV23 (PNEUMOVAX) Branch Influenza Virus 2020-07-06 Completed Universit y of Vaccine Quad .5 mL 00:00:00 [place] [facility] IM 6+ MO Branch Pneumococcal 2020-07-06 Completed University o f Polysaccharide, 00:00:00 [place] [facility] ical PPSV23 (PNEUMOVAX) Branch Influenza Virus 2020-07-06 Completed Universit y of Vaccine Quad .5 mL 00:00:00 [place] [facility] IM 6+ MO Branch Pneumococcal 2020-07-06 Completed University o f Polysaccharide, 00:00:00 [place] [facility] ical PPSV23 (PNEUMOVAX) Branch Influenza Virus 2020-07-06 Completed Universit y of Vaccine Quad .5 mL 00:00:00 [place] [facility] IM 6+ MO Branch Pneumococcal 2020-07-06 Completed University o f Polysaccharide, 00:00:00 [place] [facility] ical PPSV23 (PNEUMOVAX) Branch Influenza Virus 2020-07-06 Completed Universit y of Vaccine Quad .5 mL 00:00:00 [place] [facility] IM 6+ MO Branch Pneumococcal 2020-07-06 Completed University o f Polysaccharide, 00:00:00 [place] [facility] ical PPSV23 (PNEUMOVAX) Branch Influenza Virus 2020-07-06 Completed Universit y of Vaccine Quad .5 mL 00:00:00 [place] [facility] IM 6+ MO Branch Pneumococcal 2020-07-06 Completed University o f Polysaccharide, 00:00:00 [place] [facility] ical PPSV23 (PNEUMOVAX) Branch Influenza Virus 2020-07-06 Completed Universit y of Vaccine Quad .5 mL 00:00:00 [place] [facility] IM 6+ MO Branch Pneumococcal 2020-07-06 Completed University o f Polysaccharide, 00:00:00 [place] [facility] ical PPSV23 (PNEUMOVAX) Branch Pneumococcal 2020-07-06 Completed University o f Polysaccharide, 00:00:00 [place] [facility] ical PPSV23 (PNEUMOVAX) Branch Influenza Virus 2020-07-06 Completed Universit y of Vaccine Quad .5 mL 00:00:00 [place] [facility] IM 6+ MO Branch Influenza Virus 2020-07-06 Completed Universit y of Vaccine Quad .5 mL 00:00:00 [place] [facility] IM 6+ MO Branch Pneumococcal 2020-07-06 Completed University o f Polysaccharide, 00:00:00 [place] [facility] ical PPSV23 (PNEUMOVAX) Branch Influenza Virus 2020-07-06 Completed Universit y of Vaccine Quad .5 mL 00:00:00 [place] [facility] IM 6+ MO Branch Pneumococcal 2020-07-06 Completed University o f Polysaccharide, 00:00:00 [place] [facility] ical PPSV23 (PNEUMOVAX) Branch Influenza Virus 2020-07-06 Completed Universit y of Vaccine Quad .5 mL 00:00:00 [place] [facility] IM 6+ MO Branch Pneumococcal 2020-07-06 Completed University o f Polysaccharide, 00:00:00 [place] [facility] ical PPSV23 (PNEUMOVAX) Branch Influenza Virus 2020-07-06 Completed Universit y of Vaccine Quad .5 mL 00:00:00 [place] [facility] IM 6+ MO Branch Pneumococcal 2020-07-06 Completed University o f Polysaccharide, 00:00:00 [place] [facility] ical PPSV23 (PNEUMOVAX) Branch Influenza Virus 2020-07-06 Completed Universit y of Vaccine Quad .5 mL 00:00:00 [place] [facility] IM 6+ MO Branch Pneumococcal 2020-07-06 Completed University o f Polysaccharide, 00:00:00 [place] [facility] ical PPSV23 (PNEUMOVAX) Branch Influenza Virus 2020-07-06 Completed Universit y of Vaccine Quad .5 mL 00:00:00 [place] [facility] IM 6+ MO Branch Pneumococcal 2020-07-06 Completed University o f Polysaccharide, 00:00:00 [place] [facility] ical PPSV23 (PNEUMOVAX) Branch Influenza Virus 2020-07-06 Completed Universit y of Vaccine Quad .5 mL 00:00:00 [place] [facility] IM 6+ MO Branch Pneumococcal 2020-07-06 Completed University o f Polysaccharide, 00:00:00 [place] [facility] ical PPSV23 (PNEUMOVAX) Branch Influenza Virus 2020-07-06 Completed Universit y of Vaccine Quad .5 mL 00:00:00 [place] [facility] IM 6+ MO Branch Pneumococcal 2020-07-06 Completed University o f Polysaccharide, 00:00:00 [place] [facility] ical PPSV23 (PNEUMOVAX) Branch Influenza Virus 2020-07-06 Completed Universit y of Vaccine Quad .5 mL 00:00:00 [place] [facility] IM 6+ MO Branch Pneumococcal 2020-07-06 Completed University o f Polysaccharide, 00:00:00 [place] [facility] ical PPSV23 (PNEUMOVAX) Branch Influenza Virus 2020-07-06 Completed Universit y of Vaccine Quad .5 mL 00:00:00 [place] [facility] IM 6+ MO Branch Pneumococcal 2020-07-06 Completed University o f Polysaccharide, 00:00:00 [place] [facility] ical PPSV23 (PNEUMOVAX) Branch Influenza Virus 2020-07-06 Completed Universit y of Vaccine Quad .5 mL 00:00:00 [place] [facility] IM 6+ MO Branch Pneumococcal 2020-07-06 Completed University o f Polysaccharide, 00:00:00 [place] [facility] ical PPSV23 (PNEUMOVAX) Branch Influenza Virus 2020-07-06 Completed Universit y of Vaccine Quad .5 mL 00:00:00 [place] [facility] IM 6+ MO Branch Pneumococcal 2020-07-06 Completed University o f Polysaccharide, 00:00:00 [place] [facility] ical PPSV23 (PNEUMOVAX) Branch Influenza Virus 2020-07-06 Completed Universit y of Vaccine Quad .5 mL 00:00:00 [place] [facility] IM 6+ MO Branch Pneumococcal 2020-07-06 Completed University o f Polysaccharide, 00:00:00 [place] [facility] ical PPSV23 (PNEUMOVAX) Branch Influenza Virus 2020-07-06 Completed Universit y of Vaccine Quad .5 mL 00:00:00 [facility] IM 6+ MO Branch TDAP 2012-10-06 Completed University of 00:00:00 [facility] Branch TDAP 2012-10-06 Completed University of 00:00:00 [facility] Branch TDAP 2012-10-06 Completed University of 00:00:00 [facility] Branch TDAP 2012-10-06 Completed University of 00:00:00 [facility] Branch TDAP 2012-10-06 Completed University of 00:00:00 [facility] Branch TDAP 2012-10-06 Completed University of 00:00:[address] [facility] TDAP 2012-10-06 Completed University of 00:00:00 [facility] TDAP 2012-10-06 Completed University of 00:00:00 [facility] TDAP 2012-10-06 Completed University of 00:00:00 [facility] TDAP 2012-10-06 Completed University of 00:00:00 [facility] TDAP 2012-10-06 Completed University of 00:00:00 [facility] Branch TDAP 2012-10-06 Completed University of 00:00:00 [facility] TDAP 2012-10-06 Completed University of 00:00:00 [facility] TDAP 2012-10-06 Completed University of 00:00:00 [facility] Branch TDAP 2012-10-06 Completed University of 00:00:00 [facility] TDAP 2012-10-06 Completed University of 00:00:00 [facility] TDAP 2012-10-06 Completed University of 00:00:00 [facility] Branch TDAP 2012-10-06 Completed University of 00:00:00 [facility] Branch TDAP 2012-10-06 Completed University of 00:00:00 [facility] Branch TDAP 2012-10-06 Completed University of 00:00:00 [facility] Branch TDAP 2012-10-06 Completed University of 00:00:00 [facility] Branch TDAP 2012-10-06 Completed University of 00:00:00 [facility] TDAP 2012-10-06 Completed University of 00:00:00 [facility] TDAP 2012-10-06 Completed University of 00:00:00 [facility] Branch TDAP 2012-10-06 Completed University of 00:00:00 [place] [facility] TDAP 2012-10-06 Completed University of 00:00:00 [place] [facility] TDAP 2012-10-06 Completed University of 00:00:00 [place] [facility] TDAP 2012-10-06 Completed University of 00:00:00 [place] [facility] TDAP 2012-10-06 Completed University of 00:00:00 [place] [facility] TDAP 2012-10-06 Completed University of 00:00:00 [place] [facility] TDAP 2012-10-06 Completed University of 00:00:00 [place] [facility] TDAP 2012-10-06 Completed University of 00:00:00 [place] [facility] TDAP 2012-10-06 Completed University of 00:00:00 [place] [facility] TDAP 2012-10-06 Completed University of 00:00:00 [place] [facility] TDAP 2012-10-06 Completed University of 00:00:00 [place] [facility] TDAP 2012-10-06 Completed University of 00:00:00 [place] [facility] TDAP 2012-10-06 Completed University of 00:00:00 [place] [facility] TDAP 2012-10-06 Completed University of 00:00:00 [place] [facility] TDAP 2012-10-06 Completed University of 00:00:00 [place] [facility] TDAP 2012-10-06 Completed University of 00:00:00 [place] [facility] TDAP 2012-10-06 Completed University of 00:00:00 [place] [facility] TDAP 2012-10-06 Completed University of 00:00:00 [place] [facility] TDAP 2012-10-06 Completed University of 00:00:00 [place] [facility] TDAP 2012-10-06 Completed University of 00:00:00 [place] [facility] TDAP 2012-10-06 Completed University of 00:00:00 [place] [facility] TDAP 2012-10-06 Completed University of 00:00:00 [place] [facility] TDAP 2012-10-06 Completed University of 00:00:00 [place] [facility] TDAP 2012-10-06 Completed University of 00:00:00 [place] [facility] TDAP 2012-10-06 Completed University of 00:00:00 [place] [facility] TDAP 2012-10-06 Completed University of 00:00:00 [place] [facility] TDAP 2012-10-06 Completed University of 00:00:00 [place] [facility] TDAP 2012-10-06 Completed University of 00:00:00 [place] [facility] TDAP 2012-10-06 Completed University of 00:00:00 [facility] Vital Signs Vital Name Observation Time Observation Value Comments Source Systolic blood 2021-05-15 18:43:00 122 mm[Hg] Univer sity of pressure [place] [facility] Diastolic blood 2021-05-15 18:43:00 81 mm[Hg] Unive rsity of pressure [facility] Branch Heart rate 2021-05-15 18:42:00 90 /min [facility]i ty of [facility] Body temperature 2021-05-15 18:42:00 36.56 [facility] ersity of [place] [facility] Respiratory rate 2021-05-15 18:42:00 16 /min Univ ersity of [place] [facility] Body height 2021-05-15 18:42:00 165.1 cm Universi ty of [place] [facility] Body weight 2021-05-15 18:42:00 81.647 kg Universi ty of [place] [facility] BMI 2021-05-15 18:42:00 29.95 kg/m2 Universi ty of [facility] Oxygen saturation in 2021-05-15 18:42:00 98 /min University of Arterial blood by [facility] Pulse oximetry Branch Systolic blood 2020-10-25 20:52:00 135 mm[Hg] Univer sity of pressure [place] [facility] Diastolic blood 2020-10-25 20:52:00 96 mm[Hg] Unive rsity of pressure [place] [facility] Heart rate 2020-10-25 20:52:00 111 /min Universi ty of [place] [facility] [place] Body temperature 2020-10-25 20:46:00 37 Che Univ ersity of [facility] Branch Respiratory rate 2020-10-25 20:46:00 16 /min Univ ersity of [place] [facility] Body height 2020-10-25 20:46:00 165.1 cm Universi ty of [place] [facility] Body weight 2020-10-25 20:46:00 77.021 kg Universi ty of [place] [facility] BMI 2020-10-25 20:46:00 28.26 kg/m2 Universi ty of [place] [facility] Systolic blood 2020-10-25 20:52:00 135 mm[Hg] Univer sity of pressure [facility] Branch Diastolic blood 2020-10-25 20:52:00 96 mm[Hg] Unive rsity of pressure [place] [facility] Heart rate 2020-10-25 20:52:00 111 /min Universi ty of [place] [facility] Body temperature 2020-10-25 20:46:00 37 Che Univ ersity of [place] [facility] Respiratory rate 2020-10-25 20:46:00 16 /min Univ ersity of [place] [facility] Body height 2020-10-25 20:46:00 165.1 cm Universi ty of [place] [facility] Body weight 2020-10-25 20:46:00 77.021 kg Universi ty of [place] [facility] BMI 2020-10-25 20:46:00 28.26 kg/m2 Universi ty of [facility] Systolic blood 2020-09-07 17:20:00 112 mm[Hg] Univer sity of pressure [place] [facility] Diastolic blood 2020-09-07 17:20:00 78 mm[Hg] Unive rsity of pressure [facility] Heart rate 2020-09-07 17:20:00 97 /min [facility]i ty of [facility] Body temperature 2020-09-07 17:20:00 37.56 Che Univ ersity of [facility] Branch Respiratory rate 2020-09-07 17:20:00 16 /min Univ ersity of [place] [facility] Body height 2020-09-07 17:20:00 165.1 cm Universi ty of [place] [facility] Body weight 2020-09-07 17:20:00 73.483 kg Universi ty of [place] [facility] BMI 2020-09-07 17:20:00 26.96 kg/m2 Universi ty of [facility] Oxygen saturation in 2020-09-07 17:20:00 99 /min University of Arterial blood by [facility] Pulse oximetry Branch Systolic blood 2020-08-07 15:26:00 123 mm[Hg] Univer sity of pressure [place] [facility] Diastolic blood 2020-08-07 15:26:00 81 mm[Hg] Unive rsity of pressure [facility] Heart rate 2020-08-07 15:26:00 92 /min Universi ty of [place] [facility] Body height 2020-08-07 15:26:00 165.1 cm Universi ty of [place] [facility] Body weight 2020-08-07 15:26:00 74.072 kg Universi ty of [place] [facility] BMI 2020-08-07 15:26:00 27.17 kg/m2 Universi ty of [place] [facility] Systolic blood 2020-07-06 14:36:00 117 mm[Hg] Univer sity of pressure [place] [facility] Diastolic blood 2020-07-06 14:36:00 79 mm[Hg] Unive rsity of pressure [place] [facility] Heart rate 2020-07-06 14:36:00 77 /min Universi ty of [place] [facility] Body temperature 2020-07-06 14:36:00 36.72 Che Univ ersity of [place] [facility] Respiratory rate 2020-07-06 14:36:00 18 /min Univ ersity of [place] [facility] Body height 2020-07-06 14:36:00 165.1 cm Universi ty of [place] [facility] Body weight 2020-07-06 14:36:00 71.215 kg Universi ty of [place] [facility] BMI 2020-07-06 14:36:00 26.13 kg/m2 [facility] [place] [facility] Branch Oxygen saturation in 2020-07-06 14:36:00 100 /min RA University of Arterial blood by [facility] Pulse oximetry Branch Systolic blood 2020-05-11 16:15:00 105 mm[Hg] Univer sity of pressure [facility] Diastolic blood 2020-05-11 16:15:00 71 mm[Hg] Unive rsity of pressure [facility] Heart rate 2020-05-11 16:15:00 92 /min [facility] [place] [facility] Body temperature 2020-05-11 16:15:00 37.28 Che Univ ersity of [place] [facility] Body height 2020-05-11 16:15:00 166.4 cm [facility] [place] [facility] Body weight 2020-05-11 16:15:00 68.04 kg [facility] [place] [facility] BMI 2020-05-11 16:15:00 24.58 kg/m2 [facility] [place] [facility] Oxygen saturation in 2020-05-11 16:15:00 97 /min room air University [facility] Arterial blood by [place] [employer] [facility] Pulse oximetry Branch Systolic (mm Hg) 2016-06-28 16:12:00 Isiah Alberto Diastolic (mm Hg) 2016-06-28 16:12:00 Mem orial [facility] Respitory Rate 2016-06-28 16:12:00 Rodrigoori al [facility] Heart Rate 2016-06-28 16:12:00 [facility] Temperature Oral (F) 2016-06-28 16:12:00 98.5 F [facility] [place] Respitory Rate 2016-06-28 14:05:00 [facility] [place] Systolic (mm Hg) 2016-06-28 14:05:00 Isiah rial [place] Diastolic (mm Hg) 2016-06-28 14:05:00 Mem orial [facility] Heart Rate 2016-06-28 14:05:00 [facility] [place] Temperature Oral (F) 2016-06-28 14:05:00 97.6 F [facility] Heart Rate 2016-06-28 08:33:00 [facility] Respitory Rate 2016-06-28 08:33:00 Memori al [facility] Systolic (mm Hg) 2016-06-28 08:33:00 Isiah [facility] [place] Diastolic (mm Hg) 2016-06-28 08:33:00 Mem orial [facility] Temperature Oral (F) 2016-06-28 04:35:00 98.8 F [facility] Weight 2016-06-26 03:56:00 [facility] Height 2016-06-26 03:56:00 167.6 cm [facility] BMI Calculated 2016-06-26 03:56:00 Memori al [facility] BMI Calculated 2016-06-25 20:42:00 Mem[facility] Weight 2016-06-25 20:42:00 [facility] Height 2016-06-25 20:42:00 167.64 cm [facility] [place] Weight 2016-05-27 23:06:00 [facility] BMI Calculated 2016-05-27 23:06:00 [facility] [place] Height 2016-05-27 23:06:00 167.64 cm [facility] Temperature Oral (F) 2016-05-27 23:06:00 97.8 F [facility] Systolic (mm Hg) 2016-05-27 23:06:00 Isiah rial [place] Diastolic (mm Hg) 2016-05-27 23:06:00 Mem orial [facility] Respitory Rate 2016-05-27 23:06:00 [facility] [place] Heart Rate 2016-05-27 23:06:00 [facility] Systolic (mm Hg) 2015-07-28 00:20:00 Isiah [facility] [place] Diastolic (mm Hg) 2015-07-28 00:20:00 Mem [facility] [place] Heart Rate 2015-07-28 00:20:00 [facility] [place] Temperature Oral (F) 2015-07-28 00:20:00 98 F [facility] Respitory Rate 2015-07-28 00:20:00 [facility] [place] Respitory Rate 2015-07-27 21:15:00 Memori al [facility] Systolic (mm Hg) 2015-07-27 21:15:00 Isiah rial [place] Diastolic (mm Hg) 2015-07-27 21:15:00 Mem orial [facility] Systolic (mm Hg) 2015-07-27 19:15:00 Isiah rial [place] Diastolic (mm Hg) 2015-07-27 19:15:00 Mem orial [place] Respitory Rate 2015-07-27 19:15:00 [facility] [place] Weight 2015-07-27 17:19:00 [facility] Remy BMI Calculated 2015-07-27 17:19:00 Marzena al [facility] Height 2015-07-27 17:19:00 167.64 cm [facility] Heart Rate 2015-07-27 17:19:00 [facility] Procedures Procedure Date / Time Performing Clinician Source Performed SLEEP LAB RESULTS 2020-08-21 06:01:00 Trevor Shaffer [facility] CONSENT/REFUSAL FOR 2020-08-07 15:07:07 Doctor [place], [facility] DIAGNOSIS AND TREATMENT [place] [facility] EXTERNAL PROVIDER RECORDS 2020-07-17 05:01:00 Doctor [place] [facility] [place] [facility] PNEUMOCOCCAL VACCINE, 2020-07-06 15:48:14 Leonie Byrne [facility] 23-VALENT (PNEUMOVAX) Medical Br anch FLU VACC ([id number]), 6+ 2020-07-06 15:48:14 Leonie Byrne [facility] MONTHS, IM, QUAD Medical Branch AUTHORIZATION TO RELEASE 2020-07-06 05:01:00 Doctor [place] [facility] PHI TO [facility] [place] [facility] PAIN MANAGEMENT AGREEMENT 2020-05-11 05:01:00 Doctor [place] [facility] & INFORMED CONSENT [place] [facility] h Colonoscopy 2012-09-29 00:00:00 [facility] durán Cholecystectomy [facility] Plan of Care Planned Activity Planned Date Details Comments Source Future Scheduled Test INFLUENZA VACCINE [facility] [code = INFLUENZA VACCINE] Future Scheduled Test COVID-19 VACCINE (1) [facility] [code = COVID-19 VACCINE (1)] Future Scheduled Test Hepatitis C screening [facility] (procedure) [code = 637320117] Future Scheduled Test Screening for [facility] malignant neoplasm of cervix (procedure) [code = 156530422] Encounters Start End Encounter Admission Attending Care Care Encounter Source Date/Time Date/Time Type Type Clinicians Facility Department ID 2020-11-07 Inpatient [place] [facility] [id number] [facility] 08:22:00 [id number] [facility] 2021-07-30 2021-07-30 Rehan Welche [facility] 1.2.840.114 [id number] Univers 00:00:00 00:00:00 [facility] 350.1.13.10 [place] [id number] [address] 2021-07-29 2021-07-29 Rehan Welche [facility] 1.2.840.114 [id number] Univers 00:00:00 00:00:00 [facility] 350.1.13.10 [place] [id number] [address] 2021-07-06 2021-07-06 Outpatient R [facility] [id number] -[id number] Univers 10:20:00 10:20:00 [id number] ity [facility] 2021-07-06 2021-07-06 [facility] [id number] Univers 10:20:00 10:20:00 LEO ity [facility] 2021-06-29 2021-06-29 RefKay Pierce [facility] 1.2.391.689 [id number] Univers 00:00:00 00:00:00 Jenae PRIMARY 350.1.13.10 it[place] [id number] [place] [id number] Branch 2021-06-24 2021-06-24 Rehan Byrne [facility] 1.2.840.114 [id number] Univers 00:00:00 00:00:00 Leonie PRIMARY 350.1.13.10 it [place] [id number] Ct dical 390 Branch 2021-06-24 2021-06-24 Refill Kay Crowley [facility] 1.2.347.019 [id number] Univers 00:00:00 00:00:00 Jenae PRIMARY 350.1.13.10 it[place] [id number] Ct dical 388 Branch 2021-06-14 2021-06-14 Outpatient R [facility] [id number] -[id number] Univers 11:20:00 11:20:00 [id number] ity [facility] 2021-06-14 2021-06-14 Outpatient R TARA [facility] [id number] Univers 11:20:00 11:20:00 ATTENDING ity [facility] 2021-06-11 2021-06-11 [facility] [id number] Univers 10:30:00 10:30:00 [facility] [id number] [facility] 2021-06-11 2021-06-11 [facility] [id number] Univers 10:30:00 10:30:00 [facility] 2021-05-30 2021-05-30 [facility] 1.2.451.425 [id number] Univers 00:00:00 00:00:00 Jenae PRIMARY 350.1.13.10 it[place] [id number] Ct dical 388 Branch 2021-05-22 2021-05-22 Outpatient R [facility] [id number] -[id number] Univers 11:10:00 11:10:00 [id number] [facility] 2021-05-18 2021-05-18 Emergency EM HAYDEN Henderson NCER [id number] [facility] 13:33:00 15:29:00 Claudia [id number] 2021-05-18 2021-05-18 Outpatient R ELIU CHAVARRIA [facility] [id number] [facility] 14:00:00 14:00:[id number] [facility] 2021-05-18 2021-05-18 Outpatient R ELIU CHAVARRIA [facility] [id number] [facility] 14:00:00 14:00:00 ity [facility] 2021-05-16 2021-05-16 [facility] 1.2.495.990 [id number] [facility] 00:00:00 00:00:00 Chandani PRIMARY 350.1.13.10 i [place] [id number] Ct dical 388 Branch 2021-05-16 2021-05-16 Telephone [facility] 1.2.905.510 [id number] [facility] 00:00:00 00:00:00 Chandani PRIMARY 350.1.13.10 i [place] [id number] Ct dical 388 Branch 2021-05-16 2021-05-16 Telephone Zelaya, [facility] 1.2.991.710 [id number] 00:00:00 00:00:00 Chandani PRIMARY 350.1.13.10 CARE 4.2.7.2.686 PAVILLION [id number] [facility] 2021-05-16 2021-05-16 Telephone [facility] 1.2.090.874 [id number] 00:00:00 00:00:00 Chandani PRIMARY 350.1.13.10 CARE 4.2.7.2.686 PAVILLION [id number] [facility] 2021-05-15 2021-05-15 [facility] Chani [facility] 1.2.840.114 [id number] [facility] 15:40:09 23:59:00 Encounter [employer] PRIMARY 350.1.13.10 it[place] [id number] Ct dical 807 Branch 2021-05-15 2021-05-15 [facility] 1.2.840.114 [id number] 15:40:09 23:59:00 Encounter [employer] PRIMARY 350.1.13.10 CARE 4.2.7.2.686 PAVILLION [id number] 2021-05-15 2021-05-15 Machine [employer] Pcp-[facility] [place] 1.2.840.114 [id number] Univers 15:24:53 15:39:53 Visit Unknown, Attending PRIMARY 350.1.13.10 ity of CARE 4.2.7.2.686 [place] PAVILLION [id number] Ct dical 366 Branch 2021-05-15 2021-05-15 Machine [employer] Pcp-Lab [facility] 1.2.840.114 [id number] 15:24:53 15:39:53 Visit PRIMARY 350.1.13.10 CARE 4.2.7.2.686 PAVILLION [id number] 2021-05-15 2021-05-15 Office Brown Zelaya [facility] 1.2.840.11 [id number] Univers 13:35:46 15:25:07 Visit Jennifer Taveras PRIMARY 350.1.13.10 ity of Eliu Chavarria CARE 4.2.7.2.686 [place] PAVILLION [id number] Ct dical 389 Branch 2021-05-15 2021-05-15 Outpatient R [facility] [id number] -[id number] Univers 14:10:00 14:10:00 [id number] [facility] 2021-05-15 2021-05-15 Outpatient R NTIIN [facility] [id number] Univers 14:10:00 14:10:00 [facility]ER [facility] 2021-05-10 2021-05-10 Outpatient R [facility] [id number] -[id number] Univers 11:20:00 11:20:00 [id number] [facility] 2021-05-10 2021-05-10 Outpatient R KAY CROWLEY [facility] [id number] Univers 11:20:00 11:20:00 [facility] 2021-05-08 2021-05-08 Rehan Walters [facility] 1.2.395.301 [id number] Univers 00:00:00 00:00:00 Mohammad PRIMARY 350.1.13.10 i ty of [facility] CARE 4.2.7.2.686 [place] PAVILLION [id number] Me dical 388 Branch 2021-05-08 2021-05-08 Refill Lynn [facility] 1.2.083.740 [id number] Univers 00:00:00 00:00:00 [facility] HEALTH 350.1.13.10 i ty of CL[place] [id number] [facility] 092 Branch 2021-05-08 2021-05-08 [facility] 1.2.840.114 [id number] Univers 00:00:00 00:00:00 Leonie PRIMARY 350.1.13.10 it y [place] [id number] Ct dical 390 Branch 2021-05-08 2021-05-08 [facility] 1.2.951.574 [id number] 00:00:00 00:00:00 Mohammad PRIMARY 350.1.13.10 [facility] CARE 4.2.7.2.686 PAVILLION [id number] 388 2021-05-08 2021-05-08 [facility] 1.2.688.800 [id number] 00:00:00 00:00:00 [facility] HEALTH 350.1.13.10 CLINICS 4.2.7.2.686 [id number] 2021-05-08 2021-05-08 [facility] 1.2.840.114 [id number] 00:00:00 00:00:00 Leonie PRIMARY 350.1.13.10 CARE 4.2.7.2.686 PAVILLION [id number] 390 2021-05-04 2021-05-04 [facility] 1.2.840.114 [id number] Univers 00:00:00 00:00:00 Leonie PRIMARY 350.1.13.10 it y [place] [id number] Ct dical 390 Branch 2021-05-04 2021-05-04 [facility] 1.2.840.114 [id number] 00:00:00 00:00:00 Leonie PRIMARY 350.1.13.10 CARE 4.2.7.2.686 PAVILLION [id number] 390 2021-03-16 2021-03-16 [facility] 1.2.840.114 [id number] Univers 00:00:00 00:00:00 Leonie PRIMARY 350.1.13.10 it y of [place] [id number] Me dical [address] [place] 2021-03-16 2021-03-16 [facility] 1.2.840.114 [id number] 00 00:00:00 00:00:00 Leonie PRIMARY 350.1.13.10 CARE 4.2.7.2.686 PAVILLION [id number] 388 2021-03-08 2021-03-08 Outpatient R [facility] [id number] Univers 11:10:00 11:10:00 [id number] ity [facility] 2021-03-08 2021-03-08 Outpatient R [facility] [id number] Univers 11:10:00 11:10:00 ity [facility] 2021-02-22 2021-02-22 Outpatient R [facility] [id number] -[id number] Univers 11:10:00 11:10:00 [id number] ity [facility] 2021-02-22 2021-02-22 Outpatient R UNKNOWN, [facility] [id number] Univers 11:10:00 11:10:00 ATTENDING ity [facility] 2021-01-25 2021-01-25 [facility] 1.2.840.114 [id number] Univers 00:00:00 00:00:00 Leonie PRIMARY 350.1.13.10 it y [place] [id number] Me dical [address] [place] 2021-01-25 2021-01-25 [facility] 1.2.840.114 [id number] 00:00:00 00:00:00 Leonie PRIMARY 350.1.13.10 CARE 4.2.7.2.686 PAVILLION [id number] 390 2020-12-26 2020-12-26 [facility]en [facility] 1.2.840.114 [id number] 00:00:00 00:00:00 Leonie PRIMARY 350.1.13.10 CARE 4.2.7.2.686 PAVILLION [id number] 390 2020-12-26 2020-12-26 [facility] 1.2.840.114 [id number] Univers 00:00:00 00:00:00 Leonie PRIMARY 350.1.13.10 it y [place] [id number] [facility] 390 Branch 2020-12-20 2020-12-20 [facility] 1.2.840.114 [id number] 00:00:00 00:00:00 [facility] 350.1.13.10 CLINICS 4.2.7.2.686 [id number] 2020-12-20 2020-12-20 [facility] 1.2.840.114 [id number] Univers 00:00:00 00:00:00 [facility] 350.1.13.10 ity of [place] [id number] [facility] 092 Branch 2020-12-14 2020-12-14 [facility] 1.2.840.114 [id number] 00:00:00 00:00:00 Outreach Michael PRIMARY 350.1.13.10 [place] CARE 4.2.7.2.686 PAVILLION [id number] 388 2020-12-14 2020-12-14 [facility] 1.2.840.114 [id number] Univers 00:00:00 00:00:00 Outreach Michael PRIMARY 350.1.13.10 i ty of [place] [id number] Ct dical 388 Branch 2020-11-20 2020-11-20 Refill Doctor [facility] 1.2.840.114 [id number] 00:00:00 00:00:00 Unassigned, PRIMARY 350.1.13.10 [place] CARE 4.2.7.2.686 PAVILLION [id number] 390 2020-11-20 2020-11-20 Refill Doctor [facility] 1.2.840.114 [id number] Univers 00:00:00 00:00:00 Unassigned, PRIMARY 350.1.13.10 ity of [place] [id number] Ct dical 390 Branch 2020-11-17 2020-11-17 Refill Doctor [facility] 1.2.840.114 [id number] 15 00:00:00 00:00:00 Unassigned, PRIMARY 350.1.13.10 [place] CARE 4.2.7.2.686 PAVILLION [id number] 390 2020-11-17 2020-11-17 Refill Doctor [facility] 1.2.840.114 [id number] Univers 00:00:00 00:00:00 Unassigned, PRIMARY 350.1.13.10 ity of [place] CARE 4.2.7.2.686 [place] [id number] Ct dical 390 Branch 2020-11-08 2020-11-08 Letter Clinic, [facility]IVERSIT 1.2.840.114 [id number] Univers 00:00:00 00:00:00 (Out) Neurology Y HEALTH 350.1.13.10 ity of Continuity CLINICS 4.2.7.2.686 [place] [id number] [facility] 092 Branch 2020-11-03 2020-11-03 Outpatient Alex DAVENPORT [facility] [id number] Univers 11:00:00 11:00:[id number] ity of [facility] 2020-10-25 2020-10-25 Office Lynn, UNIVERSIT 1.2.278.862 [id number] 14:29:03 15:36:22 Visit Saleem Y HEALTH 350.1.13.10 CLINICS 4.2.7.2.686 [id number] 2020-10-25 2020-10-25 Office Saleem Bailey UNIVERS[facility] 1.2.840.11 [id number] Univers 14:29:03 15:36:22 Visit Napoleon Fuller [facility] 350.1.13 .10 ity of CLINICS 4[place] [id number] [facility] 092 Branch 2020-10-25 2020-10-25 Outpatient R NAPOLEON FULLER [facility] [id number] Univers 14:30:00 14:30:00 NAPOLEON FULLER [facility] 2020-10-25 2020-10-25 Outpatient R [facility] [id number] Univers 14:00:00 14:00:00 [id number] [facility] 2020-10-18 2020-10-18 Outpatient R [facility] [id number] Univers 15:30:00 15:30:00 [id number] [facility] 2020-10-18 2020-10-18 Outpatient R JAQUELIN [facility] [id number] Univers 15:30:00 15:30:00 [facility] 2020-10-13 2020-10-13 [facility] 1.2.840.114 [id number] Univers 16:18:29 23:59:00 Encounter Talya [facility] 350.1.13.10 ity of CLINICS 4[place] [id number] [facility] 800 Branch 2020-10-13 2020-10-13 Outpatient R PETAR [facility] [id number] Univers 16:30:00 16:30:00 TALYA [id number] [facility] 2020-10-13 2020-10-13 Outpatient R PETAR [facility] [id number] Univers 00:00:00 00:00:00 TALYA [facility] 2020-10-12 2020-10-12 Outpatient R ETHEL [facility] [id number] Univers 10:40:00 10:40:00 MAHESH barry [facility] 2020-10-12 2020-10-12 Outpatient R ETHEL [facility] [id number] Univers 10:40:00 10:40:00 MAHESH ity [facility] 2020-10-12 2020-10-12 Telephone Caty [facility] 1.2.425.398 [id number] Univers 00:00:00 00:00:00 Leonie PRIMARY 350.1.13.10 it y of [place] [id number] Ct dical [address] [place] 2020-10-12 2020-10-12 Telephone Caty [facility] 1.2.115.785 [id number] Univers 00:00:00 00:00:00 Leonie PRIMARY 350.1.13.10 it y of C[place] [id number] [facility] [address] [place] 2020-10-05 2020-10-05 Refill Doctor [facility] 1.2.840.114 [id number] Univers 00:00:00 00:00:00 Unassigned, PRIMARY 350.1.13.10 ity of [place] C[place] 4[place] [id number] [address] 2020-09-12 2020-09-12 Outpatient R PETAR [facility] [id number] Univers 12:10:00 12:10:00 TALYA [id number] ity [facility] 2020-09-07 2020-09-07 Office Leonie Byrne [facility] 1.2.840.114 [id number] Univers 11:10:30 11:40:30 Visit Ryan Pearson PRIMARY 350.1.13.10 ity of C[place]2.[place] [id number] [address] 2020-09-07 2020-09-07 Outpatient R [facility] [id number] Univers 11:10:00 11:10:00 ity [facility] 2020-09-07 2020-09-07 Outpatient R [facility] [id number] Univers 11:10:00 11:10:[address] [facility] 2020-08-31 2020-08-31 Refill Doctor [facility] 1.2.840.114 [id number] Univers 00:00:00 00:00:00 Unassigned, PRIMARY 350.1.13.10 ity of [place] C[place].2.[place] [id number] Ct dical [address] [place] 2020-08-29 2020-08-29 Telephone Lab, Sleep AMANDO 1.2.840.114 [id number] Univers 00:00:00 00:00:00 LIANA 350.1.13.10 it y of [place].2.[place] [id number] [facility] [address] 2020-08-22 2020-08-22 Telephone SHIRA Blackmon 1.2.032.399 [id number] Univers 00:00:00 00:00:00 Leidy HENDERSON 350.1.13.10 it y of HOSPITAL 4.2.7.2.686 [place] [id number] [facility] [address] [place] 2020-08-21 2020-08-21 Outpatient R [facility] [id number] -[id number] Univers 20:00:00 20:00:[id number] [facility] 2020-08-21 2020-08-21 Outpatient R [facility] [id number] Univers 20:00:00 20:00:[address] [facility] 2020-08-21 2020-08-21 Machine Ceramic [employer]ater Lab, Sleep AMANDO 1.2.840.114 [id number] Univers 14:10:15 16:40:15 Visit Amrit Knight 350.1.13.10 ity of P[place]ILL[place].2.[place] [id number] [facility] [address] 2020-08-21 2020-08-21 Laboratory Only, [facility] Test UNIVERSIT 1.2.84 0.114 [id number] Univers 11:45:22 12:00:22 Only Rory Gambino Sekou [facility] 350.1.13.10 ity of CLINICS 4[place]2.[place] [id number] [facility] [address] [place] 2020-08-21 2020-08-21 Orders SHIRA Shaffer 1.2.639.351 [id number] Univers 00:00:00 00:00:00 Only Trevor MUNROEY 350.1.13.10 ity of [facility] 4.2.7.2.686 [place]o as [id number] [facility] [address] [place] 2020-08-17 2020-08-17 [facility] 1.2.840.114 [id number] Univers 00:00:00 00:00:00 Leonie PRIMARY 350.1.13.10 it y of C[place] [id number] [address] 2020-08-11 2020-08-11 Outpatient Alex DAVENPORT [facility] [id number] Univers 11:00:00 11:00:00 MAHESH [id number] ity of [facility] 2020-08-10 2020-08-10 Telephone [facility] 1.2.339.379 [id number] Univers 00:00:00 00:00:00 Leonie PRIMARY [id number] it y of [place] [id number] [id number] [address] 2020-08-07 2020-08-07 Office GEORGIANA Malone [id number] Univers 09:06:20 09:36:20 Visit Talya [facility] 350.1.13.10 i ty of [id number] [id number] [facility] [address] 2020-08-07 2020-08-07 Outpatient Alex MALONE [facility] [id number] Univers 09:30:00 09:30:00 TALYA [id number] ity [facility] 2020-08-07 2020-08-07 Outpatient Alex MALONE [facility] [id number] Univers 09:30:00 09:30:00 TALYA ity [facility] 2020-08-07 2020-08-07 Buck SILVA [id number] Univers 00:00:00 00:00:00 Only Unassigned, [place] [id number] ity of [place] [facility] 4.2.7.2.686 Nacho as [id number] [address] 2020-08-02 2020-08-02 [facility] [id number] Univers 00:00:00 00:00:00 Leonie PRIMARY 350.1.13.10 [place] [id number] d[address] 2020-07-31 2020-07-31 [facility] [id number] Univers 11:00:00 11:00:00 T[id number] ity of [facility] 2020-07-31 2020-07-31 [facility] [id number] Univers 11:00:00 11:00:[address] [facility] 2020-07-17 2020-07-17 Orders Doctor SILVA [id number] Univers 00:00:00 00:00:00 Only Unassigned, [place] [id number] ity of [place] [facility] 4.2.7.2.686 Nacho as [phone] [id number] [address] 2020-07-10 2020-07-10 [facility] [id number] Univers 00:00:00 00:00:00 Leonie PRIMARY [id number] it y [id number] [phone] 2020-07-06 2020-07-[address] [facility] [id number] Univers 09:28:32 11:13:07 Visit Unknown, Attending PRIMARY [id number] ity of Trevor Shaffer [facility] 4.2.7. 2.686 [place] DAVION [phone] [address] 2020-07-06 2020-07-06 Outpatient R [facility] [id number] -[id number] Univers 09:50:00 09:50:[address] [facility] 2020-07-06 2020-07-06 Outpatient R [facility] [id number] Univers 09:50:00 09:50:[address] [facility] 2020-07-06 2020-07-06 Machine Ceramic Coater Pcp-Lab [facility] [id number] Univers 09:18:13 09:33:13 Visit Unknown, Attending PRIMARY [id number] [id number] [phone] [address] dical [address] 2020-07-06 2020-07-06 Orders Doctor SHIRA 1.2.840.114 [id number] Univers 00:00:00 00:00:00 Only Unassigned, SATNIAGO [id number] ity of [place] [facility] 4.2.7.2.686 Nacho as [phone] [address] 2020-06-29 2020-06-29 Outpatient R [facility] [id number] -[id number] Univers 11:10:00 11:10:00 ity [facility] 2020-06-29 2020-06-29 [facility] [id number] Univers 11:10:00 11:10:[address] ity of [facility] 2020-06-07 2020-06-07 Telephone Caty [facility] [id number] Univers 00:00:00 00:00:00 [facility] PRIMARY [id number] [id number] [phone] [facility] [address] 2020-05-11 2020-06-06 Office Leonie Byrne [facility] [id number] Univers 11:03:22 05:39:28 Visit Unknown, Attending PRIMARY [id number] ity of Natividad Hammer CARE [id number] [place] [facility]ILLION [phone] [address]ical [address] 2020-05-26 2020-05-26 Refill Caty [facility] 1.2.840.114 [id number] Univers 00:00:00 00:00:00 Leonie PRIMARY [id number] it [id number] [phone] Me [address] 2020-05-18 2020-05-18 Outpatient R [facility] [id number] -[id number] Univers 10:30:00 10:30:00 ity [facility] 2020-05-18 2020-05-18 [facility] [id number] Univers 10:30:00 10:30:00 NATIVIDAD ity [facility] 2020-05-18 2020-05-18 [facility] [id number] Univers 00:00:00 00:00:00 Leonie PRIMARY [id number] it [id number] [id number] [address] 2020-05-16 2020-05-16 [facility]phone [facility] [id number] Univers 00:00:00 00:00:00 Leonie PRIMARY [id number] it [id number] [id number] [address] 2020-05-11 2020-05-11 Outpatient R [facility] [id number] -[id number] Univers 14:40:00 14:40:00 [id number] ity [facility] 2020-05-11 2020-05-11 Outpatient R UNKNOWN, [facility] [id number] Univers 11:10:00 11:10:00 ATTENDING ity [facility] 2020-05-11 2020-05-11 Orders Doctor SILVA 1.2.840.114 [id number] Univers 00:00:00 00:00:00 Only Unassigned, SANTIAGO [id number] ity of [place] [facility] 4.2.7.2.686 Nacho as [phone] [place] [address] [place] 2016-06-25 2016-06-28 Inpatient nullFlavo [facility] [id number] Memoria 20:35:00 19:50:00 alex Alberto 02 l [facility] 2016-05-27 2016-05-28 Emergency [facility] Fall[facility] [id number] Memoria 22:58:00 00:14:00 alex Alberto 01 l [facility] 2015-07-27 2015-07-28 EC nullFlavo [facility] [id number] Memoria 17:04:00 00:55:00 Emergency r [place] 00 l [facility] Results Test Description Test Time Test Comments Results Result [facility] sendy Comments - CT ABD PELVIS 2020-11-07 W/CONT 09:38:00 [facility]Name: CYN KHAN : 1975 Sex: F Name: CYN KHAN [facility] FSED : 1975 Age/S: 45 / F [address] [facility] [address] Unit #: [id number] Loc: [address] Phys: Rod Scott MD [place], [place] [address] Acct: [id number] Dis Date: Status: PRE ER PHONE #: Exam Date: 11/07/2020914 FAX #: Reason: RLQ PAIN EXAMS: CPT CODE: [id number] CT ABD PELVIS W/CONT 29673 HISTORY: Right lower quadrant pain. COMPARISON: CT scan from April 24, 2008. Location: [facility]. CT of abdomen and pelvis with IV contrast: 100 mL of Isovue 370. Automated exposure control. CT abdomen: The lung bases are clear. Dependent changes. The liver is enhancing homogeneously. No discrete mass or nodules. Portal vein and hepatic artery are patent. Gallbladder is not seen. The liver is measuring 18.2 cm in length. CBD is dilated to 1.1 mm likely sequela of cholecystectomy. The spleen is not enlarged. Homogeneous enhancement. The stomach distended incompletely with thickened distal esophagus. Pancreas is enhancing homogeneously. FINDINGS suggestive of pancreatic divisum. This pattern is unchanged from 2007. Adrenals are normal. Kidneys are free from hydroureteronephrosis . Homogeneous enhancement. Bilateral excretion. Horseshoe kidney. No pathologic adenopathy. Atherosclerotic well-opacified abdominal and pelvic vasculature. No bowel obstruction or colitis or diverticulitis or enteritis. Constipation. CT PELVIS: Appendix is normal. Pelvic bowel loops are unobstructed. Unremarkable urinary bladder. Unremarkable uterus and ovaries with follicular change. No free fluid or free air or abscess. Unremarkable urinary bladder. No pelvic pathologic adenopathy. Subcutaneous tissues and the musculature are normal in appearance. No lytic or blastic lesions visible within the bony skeleton. Butterfly L2 vertebral body. PAGE 1 Signed Report (CONTINUED) Name: CYN KHAN [facility] FSED : 1975 Age/S: 45 / F [address] [facility] [address] Unit #: [id number] Loc: [address] Phys: Rod Scott MD [place], [place] [address] Acct: [id number] Dis Date: Status: PRE ER PHONE #: Exam Date: 11/07/2020914 FAX #: Reason: RLQ PAIN EXAMS: CPT CODE: [id number] CT ABD PELVIS W/CONT 14411 <Continued> IMPRESSION: Normal appendix without bowel obstruction or colitis or diverticulitis or enteritis. Constipation. Pancreatic divisum. Horseshoe kidneys. Patient is post cholecystectomy with prominent CBD. No free fluid or free air or abscess. at 0938 Reported and signed by: Luis Butcher M.D. CC: Rod Scott MD; Brennan Hartmann MD Technologist:Mee Zelaya RT(R)(CT) CTDI: DLP: Trnscb Date/Time: 11/07/2020 (937) t.[email or web address] Orig Print D/T: S: 11/07/2020 (0941) PAGE 2 Signed Report BASIC METABOLIC PANEL 2020-11-07 09:10:00 Test Item Value Reference Range Interpretation Comme nts SODIUM (test code = NA) 138 mmol/L 128-145 N POTASSIUM (test code = K) 4.2 mmol/L 3.5-5.1 N CHLORIDE (test code = CL) 102.0 mmol/L 98-107 N CARBON DIOXIDE (test code = 31.4 mmol/L 22-29 H CO2) ANION GAP (test code = GAP) 9 mmol/L 10-20 L GLUCOSE (test code = GLU) 79 mg/dL 70-110 N BLOOD UREA NITROGEN (test 10 mg/dL 7-22 N code = BUN) GLOMERULAR FILTRATION RATE > 60 mL/min See_Comment E stimated GFR by using (test code = GFR) Modified M DRD formula.Chronic kidney disease is defined as either kidney d amageor GFR <60 mL/min/1.73 m2 for >3 months. [Automa bessie message] The system [employer] generated this result tra nsmitted reference range : >=60. The reference range was not used to interpret th is result as normal/abnormal . CREATININE (test code = 0.77 mg/dL 0.55-1.3 N CREAT) BUN/CREATININE RATIO (test 13.0 10-20 N code = BUN/CREA) CALCIUM (test code = CA) 8.1 mg/dL 8.0-10.5 N HEPATIC FUNCTION [id number] 09:10:00 Test Item Value Reference Range Interpretation Comments TOTAL PROTEIN (test code = PROT) 8.0 gram/dL 6.1-7.8 H ALBUMIN (test code = ALB) 3.9 g/dL 3.3-4.4 N GLOBULIN (test code = GLOB) 4.1 G/DL 1-10 N ALBUMIN/GLOBULIN RATIO (test code 1.0 0.75-1.50 N = A/G) BILIRUBIN TOTAL (test code = 0.20 mg/dL 0.2-1.2 N BILT) BILIRUBIN DIRECT (test code = 0.10 mg/dL 0.0-0.30 N BILD) SGOT/AST (test code = AST) 22 U/L 10-39 N SGPT/ALT (test code = ALT) 40 U/L 10-69 N ALKALINE PHOSPHATASE TOTAL (test 158 U/L 50-139 H code = ALKP) [id number] 09:10:00 Test Item Value Reference Range Interpretation Comments LIPASE (test code = LIP) 154 Unit/L 144-286 N HCG SERUM [id number] 09:10:00 Test Item Value Reference Range Interpretation Comments HCG SERUM QUAL (test NEGATIVE NEGATIVE This HC GQL test is NOT code = HCGQL) applicable for MALE patients.Check with nurse about probable order error.If Tumor Marker Test needed, nu rse should order test "HCG TU"(Test #550.44250)---- - BASIC METABOLIC [id number] 09:01:00 Test Item Value Reference Range Interpretation Comments SODIUM (test code = 138 mmol/L 128-145 N NA) POTASSIUM (test code 4.2 mmol/L 3.5-5.1 N = K) CHLORIDE (test code 102.0 mmol/L 98-107 N = CL) CARBON DIOXIDE (test 31.4 mmol/L 22-29 H code = CO2) ANION GAP (test code 9 mmol/L 10-20 L = GAP) GLUCOSE (test code = 79 mg/dL 70-110 N GLU) BLOOD UREA NITROGEN 10 mg/dL 7-22 N (test code = BUN) GLOMERULAR > 60 mL/min See_Comment Estimated GFR b y FILTRATION RATE using Modifi ed MDRD (test code = GFR) formula. ronic kidney disease is defined as eith er kidney damageor GFR <60 mL/min/1.73 m2 for >3 months. [Automated mess age] The system Solaria generated this result transmitted ref erence range: >=60. Th e reference range was not used to int erpret this result as normal/abnormal . CREATININE (test 0.77 mg/dL 0.55-1.3 N code = CREAT) BUN/CREATININE RATIO 13.0 10-20 N (test code = BUN/CREA) CALCIUM (test code = 8.1 mg/dL 8.0-10.5 N CA) HEPATIC FUNCTION [id number] 09:01:00 Test Item Value Reference Range Interpretation Comments TOTAL PROTEIN (test code = PROT) gram/dL 6.4-8.2 ALBUMIN (test code = ALB) g/dL 3.4-5.0 GLOBULIN (test code = GLOB) G/DL 1-10 ALBUMIN/GLOBULIN RATIO (test code = 0.75-1.50 A/G) BILIRUBIN TOTAL (test code = BILT) mg/dL 0.0-1.0 BILIRUBIN DIRECT (test code = BILD) mg/dL 0.0-0.20 SGOT/AST (test code = AST) IUnit/L 15-37 SGPT/ALT (test code = ALT) IUnit/L 12-78 ALKALINE PHOSPHATASE TOTAL (test IUnit/L 45-117 code = ALKP) [id number] 09:01:00 Test Item Value Reference Range Interpretation Comments LIPASE (test code = LIP) U/L 73.0-393.0 HCG SERUM [id number] 09:01:00 Test Item Value Reference Range Interpretation Comments HCG SERUM QUAL (test NEGATIVE NEGATIVE This HC GQL test is NOT code = HCGQL) applicable for MALE patients.Check with nurse about probable order error.If Tumor Marker Test needed, nu rse should order test "HCG TU"(Test #550.93515)---- - BASIC METABOLIC [id number] 08:54:00 Test Item Value Reference Range Interpretation Comments SODIUM (test code = NA) mmol/L 136-145 POTASSIUM (test code = mmol/L 3.5-5.1 K) CHLORIDE (test code = mmol/L 98-107 CL) CARBON DIOXIDE (test mmol/L 21-32 code = CO2) ANION GAP (test code = mmol/L 10-20 GAP) GLUCOSE (test code = mg/dL 70-110 GLU) BLOOD UREA NITROGEN mg/dL 7-22 (test code = BUN) GLOMERULAR FILTRATION mL/min See_Comment [Auto mated message] RATE (test code = GFR) The s [employer] which generated this result transmitted ref erence range: >=60. Th e reference range was not used to interpr et this result as normal/abnormal . CREATININE (test code = mg/dL 0.55-1.02 CREAT) BUN/CREATININE RATIO 10-20 (test code = BUN/CREA) CALCIUM (test code = mg/dL 8.5-10.1 CA) HEPATIC FUNCTION [id number] 08:54:00 Test Item Value Reference Range Interpretation Comments TOTAL PROTEIN (test code = PROT) gram/dL 6.4-8.2 ALBUMIN (test code = ALB) g/dL 3.4-5.0 GLOBULIN (test code = GLOB) G/DL 1-10 ALBUMIN/GLOBULIN RATIO (test code = 0.75-1.50 A/G) BILIRUBIN TOTAL (test code = BILT) mg/dL 0.0-1.0 BILIRUBIN DIRECT (test code = BILD) mg/dL 0.0-0.20 SGOT/AST (test code = AST) IUnit/L 15-37 SGPT/ALT (test code = ALT) IUnit/L 12-78 ALKALINE PHOSPHATASE TOTAL (test IUnit/L 45-117 code = ALKP) [id number] 08:54:00 Test Item Value Reference Range Interpretation Comments LIPASE (test code = LIP) U/L 73.0-393.0 HCG SERUM [id number] 08:54:00 Test Item Value Reference Range Interpretation Comments HCG SERUM QUAL (test NEGATIVE NEGATIVE This HC GQL test is NOT code = HCGQL) applicable for MALE patients.Check with nurse about probable order error.If Tumor Marker Test needed, nu rse should order test "HCG TU"(Test #550.06179)---- - CBC W/O [id number] 08:47:00 Test Item Value Reference Range Interpretation Comments WHITE BLOOD CELL (test code = 5.2 K/mm3 4.5-12.5 N WBC) RED BLOOD CELL (test code = 4.38 mill/mm3 3.7-5.2 N RBC) HEMOGLOBIN (test code = HGB) 13.5 gram/dL 11.5-15.5 N HEMATOCRIT (test code = HCT) 41.1 % 36.0-46.0 N MEAN CELL VOLUME (test code = 93.8 fL 80-98 N MCV) MEAN CELL HGB (test code = MCH) 30.8 picogram 27.0-33.0 N MEAN CELL HGB CONCETRATION 32.8 gram/dL 33.0-36.0 L (test code = MCHC) RED CELL DISTRIBUTION WIDTH 13.1 % 11.6-16.2 N (test code = RDW) RED CELL DISTRIBUTION WIDTH SD 46.4 fL 37.0-51.0 N (test code = RDW-SD) PLATELET COUNT (test code = 428 K/mm3 150-450 N PLT) MEAN PLATELET VOLUME (test code 8.3 fL 6.7-11.0 N = MPV) URINALYSIS [id number] 08:42:00 Test Item Value Reference Range Interpretation Comments UA COLOR (test code = STRAW YELLOW COLU) UA APPEARANCE (test code CLEAR CLEAR = APPU) UA GLUCOSE DIPSTICK (test NEGATIVE mg/dL NEGATIVE code = DGLUU) UA BILIRUBIN DIPSTICK NEGATIVE NEGATIVE (test code = BILU) UA KETONE DIPSTICK (test NEGATIVE mg/dL NEGATIVE code = KETU) UA SPECIFIC GRAVITY (test <=1.005 1.001-1.035 code = SGU) UA BLOOD DIPSTICK (test NEGATIVE NEGATIVE code = LATOYA) UA PH DIPSTICK (test code 6.0 5.0-8.0 = LEILANI) UA PROTEIN DIPSTICK (test NEGATIVE mg/dL Neg-15 code = PROU) UA UROBILINIOGEN DIPSTICK 0.2 mg/dL 0.0-0.2 (test code = URO) UA NITRITE DIPSTICK (test NEGATIVE NEGATIVE code = CLARENCE) UA LEUKOCYTE ESTERASE NEGATIVE uL NEGATIVE DIPSTICK (test code = LEUU) UA MICROSCOPIC NEEDED? YES (test code = UAMICRO) UA WBC (test code = WBCU) 0-5 per HPF 0-5 UA RBC (test code = RBCU) 0-3 per HPF 0-5 UA EPITHELIAL CELLS (test Few (2-5/hpf) per Few code = EPIU) HPF UA BACTERIA (test code = FEW per HPF NONE BACU) Urine Source? Clean CatchURINALYSIS [id number] 08:36:00 Test Item Value Reference Range Interpretation Comments UA COLOR (test code = COLU) STRAW YELLOW UA APPEARANCE (test code = CLEAR CLEAR APPU) UA GLUCOSE DIPSTICK (test code NEGATIVE mg/dL NEGATIVE = DGLUU) UA BILIRUBIN DIPSTICK (test NEGATIVE NEGATIVE code = BILU) UA KETONE DIPSTICK (test code NEGATIVE mg/dL NEGATIVE = KETU) UA SPECIFIC GRAVITY (test code <=1.005 1.001-1.035 = SGU) UA BLOOD DIPSTICK (test code = NEGATIVE NEGATIVE LATOYA) UA PH DIPSTICK (test code = 6.0 5.0-8.0 LEILANI) UA PROTEIN DIPSTICK (test code NEGATIVE mg/dL Neg-15 = PROU) UA UROBILINIOGEN DIPSTICK 0.2 mg/dL 0.0-0.2 (test code = URO) UA NITRITE DIPSTICK (test code NEGATIVE NEGATIVE = CLARENCE) UA LEUKOCYTE ESTERASE DIPSTICK NEGATIVE uL NEGATIVE (test code = LEUU) UA MICROSCOPIC NEEDED? (test code = UAMICRO) UA WBC (test code = WBCU) per HPF 0-5 UA RBC (test code = RBCU) per HPF 0-5 UA EPITHELIAL CELLS (test code per HPF Few = EPIU) UA BACTERIA (test code = BACU) per HPF NONE Urine Source? [facility]2016-09-30 05:58:00 Test Item Value Reference Range Interpretation Comments Glucose Lvl (test code = Glucose Lvl) 91 70-99 [facility]2016-09-30 05:58:00 Test Item Value Reference Range Interpretation Comments BUN (test code = BUN) 16 7-22 [facility]2016-09-30 05:58:00 Test Item Value Reference Range Interpretation Comments Potassium Lvl (test code = Potassium 3.5 3.5-5.1 Lvl) [facility]2016-09-30 05:58:00 Test Item Value Reference Range Interpretation Comments Sodium Lvl (test code = Sodium Lvl) 136 135-145 [facility]2016-09-30 05:58:00 Test Item Value Reference Range Interpretation Comments Creatinine Lvl (test code = Creatinine 0.63 0.50-1.40 Lvl) [facility]2016-09-30 05:58:00 Test Item Value Reference Range Interpretation Comments CO2 (test code = CO2) 26 24-32 [facility]2016-09-30 05:58:00 Test Item Value Reference Range Interpretation Comments Chloride Lvl (test code = Chloride Lvl) 100 95-109 [facility]2016-09-30 05:58:00 Test Item Value Reference Range Interpretation Comments Calcium Lvl (test code = Calcium Lvl) 8.5 8.5-10.5 [facility]2016-09-30 05:58:00 Test Item Value Reference Range Interpretation Comments AGAP (test code = AGAP) 13.5 10.0-20.0 [facility]2016-09-30 05:58:00 Test Item Value Reference Range Interpretation Comments eGFR (test code = eGFR) 112 [facility]2016-09-29 08:05:00 Test Item Value Reference Range Interpretation Comments Phosphorus (test code = Phosphorus) 3.7 2.5-4.5 [facility]2016-09-29 08:05:00 Test Item Value Reference Range Interpretation Comments eGFR (test code = eGFR) 121 [facility]2016-09-29 08:05:00 Test Item Value Reference Range Interpretation Comments Potassium Lvl (test code = Potassium 3.7 3.5-5.1 Lvl) [facility]2016-09-29 08:05:00 Test Item Value Reference Range Interpretation Comments Creatinine Lvl (test code = Creatinine 0.49 0.50-1.40 Lvl) [facility]2016-09-29 08:05:00 Test Item Value Reference Range Interpretation Comments Sodium Lvl (test code = Sodium Lvl) 136 135-145 [facility]2016-09-29 08:05:00 Test Item Value Reference Range Interpretation Comments Glucose Lvl (test code = Glucose Lvl) 100 70-99 [facility]2016-09-29 08:05:00 Test Item Value Reference Range Interpretation Comments BUN (test code = BUN) 5 7-22 [facility]2016-09-29 08:05:00 Test Item Value Reference Range Interpretation Comments CO2 (test code = CO2) 25 24-32 [facility]2016-09-29 08:05:00 Test Item Value Reference Range Interpretation Comments Calcium Lvl (test code = Calcium Lvl) 8.4 8.5-10.5 [facility]2016-09-29 08:05:00 Test Item Value Reference Range Interpretation Comments Chloride Lvl (test code = Chloride Lvl) 101 95-109 [facility]2016-09-29 08:05:00 Test Item Value Reference Range Interpretation Comments AGAP (test code = AGAP) 13.7 10.0-20.0 [facility]2016-09-29 08:05:00 Test Item Value Reference Range Interpretation Comments Magnesium Lvl (test code = Magnesium 1.9 1.8-2.4 Lvl) [id number] 08:05:00 Test Item Value Reference Range Interpretation Comments Platelet (test code = Platelet) 209 133-450 [facility] [id number] 08:05:00 Test Item Value Reference Range Interpretation Comments RDW (test code = RDW) 12.9 11.5-14.5 [facility] CenterFzehgtfIHYYQQKZRQ3729-16-33 08:05:00 Test Item Value Reference Range Interpretation Comments MPV (test code = MPV) 7.5 7.4-10.4 [facility] CenterXzxuxbvWAXNRRUSHZ2760-06-23 08:05:00 Test Item Value Reference Range Interpretation Comments RBC (test code = RBC) 4.18 4.20-5.40 [facility] C[id number] 08:05:00 Test Item Value Reference Range Interpretation Comments Hgb (test code = Hgb) 13.5 12.0-16.0 [facility] CenterWwgbaxkLFLVXVIGVW8639-46-11 08:05:00 Test Item Value Reference Range Interpretation Comments WBC (test code = WBC) 8.7 3.7-10.4 [facility] CenterYdhafkyXPVSCVSCHE9160-98-30 08:05:00 Test Item Value Reference Range Interpretation Comments MCHC (test code = MCHC) 33.7 32.0-36.0 [facility] CenterNiluwunPSNVHVJGIQ4294-10-01 08:05:00 Test Item Value Reference Range Interpretation Comments MCH (test code = MCH) 32.3 pg 27.0-31.0 [facility] CenterEsrksxeVXBJQSURAF6764-99-23 08:05:00 Test Item Value Reference Range Interpretation Comments MCV (test code = MCV) 95.7 80.0-98.0 [facility] C[id number] 08:05:00 Test Item Value Reference Range Interpretation Comments Hct (test code = Hct) 40.0 36.0-48.0 [place] 69690016-09-29 08:05:00 Test Item Value Reference Range Interpretation Comments Phenytoin Free (test code = Phenytoin 1.01 1.00-2.00 Free) [place] 69690016-09-29 08:05:00 Test Item Value Reference Range Interpretation Comments Phenytoin Total (test code = Phenytoin 9.9 10.0-20.0 Total) [place] [id number] 19:43:00 Test Item Value Reference Range Interpretation Comments Phenytoin Free (test code = Phenytoin 0.99 1.00-2.00 Free) [place] 69690016-09-28 19:43:00 Test Item Value Reference Range Interpretation Comments Phenytoin Total (test code = Phenytoin 12.2 10.0-20.0 Total) [place] 69690016-09-28 07:31:00 Test Item Value Reference Range Interpretation Comments Phenytoin Free (test code = Phenytoin 0.14 1.00-2.00 Free) [place] 233046-09-28 06:35:00 Test Item Value Reference Range Interpretation Comments Phenytoin Total (test code = Phenytoin 2.8 10.0-20.0 Total) [facility]JqohlieXTFSRNXIOKTF2334-67-79 05:06:00 Test Item Value Reference Range Interpretation Comments AGAP (test code = AGAP) 11.1 10.0-20.0 [facility] HospitalCxjguygEIXVHNGYFGBU9553-12-75 05:06:00 Test Item Value Reference Range Interpretation Comments CO2 (test code = CO2) 28 24-32 [facility] HospitalQkkarevDLFXGHGXANWI2947-41-08 05:06:00 Test Item Value Reference Range Interpretation Comments Calcium Lvl (test code = Calcium Lvl) 8.5 8.5-10.5 [facility] HospitalZwkyrjwESJAUJNRQHHD8735-16-90 05:06:00 Test Item Value Reference Range Interpretation Comments eGFR (test code = eGFR) 114 [facility] HospitalRixplmtRMDYOZJZAHXX4830-47-42 05:06:00 Test Item Value Reference Range Interpretation Comments Potassium Lvl (test code = Potassium 4.1 3.5-5.1 Lvl) [facility] HospitalQxtvfzjICHLAXTNXWHZ0524-22-60 05:06:00 Test Item Value Reference Range Interpretation Comments Chloride Lvl (test code = Chloride Lvl) 102 95-109 [facility] HospitalWevqayqVLPZKWZJNPXM0979-98-22 05:06:00 Test Item Value Reference Range Interpretation Comments Sodium Lvl (test code = Sodium Lvl) 137 135-145 [facility] HospitalNgcpueoPZAMLIGSEOJC9731-49-65 05:06:00 Test Item Value Reference Range Interpretation Comments BUN (test code = BUN) 5 7-22 [facility] HospitalBkzrjhtPYJBGABQEBKB8625-40-64 05:06:00 Test Item Value Reference Range Interpretation Comments Creatinine Lvl (test code = Creatinine 0.60 0.50-1.40 Lvl) [facility] HospitalAbqlmbnQNXTFGRSHTZK8502-26-73 05:06:00 Test Item Value Reference Range Interpretation Comments Glucose Lvl (test code = Glucose Lvl) 83 70-99 [facility] CenterRcpkbwpGEQGRGQBTS9308-67-25 05:06:00 Test Item Value Reference Range Interpretation Comments WBC (test code = WBC) 8.3 3.7-10.4 [facility] CenterCdmycuqLHWJIEQIFQ1904-61-70 05:06:00 Test Item Value Reference Range Interpretation Comments MCV (test code = MCV) 95.3 80.0-98.0 [facility] CenterGflakzqASSUCODRAU3764-67-60 05:06:00 Test Item Value Reference Range Interpretation Comments RBC (test code = RBC) 4.03 4.20-5.40 [facility] CenterSudmxicLUVHLRKJSR0184-62-39 05:06:00 Test Item Value Reference Range Interpretation Comments Hct (test code = Hct) 38.4 36.0-48.0 [facility] CenterNpadkcsZVBWUYRUDE0333-07-30 05:06:00 Test Item Value Reference Range Interpretation Comments Hgb (test code = Hgb) 13.0 12.0-16.0 [facility] CenterQryezpbJXARAVZIOO5003-30-87 05:06:00 Test Item Value Reference Range Interpretation Comments MCHC (test code = MCHC) 33.9 32.0-36.0 [facility] CenterKllirotZXEISUONUC5479-66-78 05:06:00 Test Item Value Reference Range Interpretation Comments MCH (test code = MCH) 32.3 pg 27.0-31.0 [facility] CenterRntggrdPDIWICOIAP7576-26-76 05:06:00 Test Item Value Reference Range Interpretation Comments Platelet (test code = Platelet) 243 133-450 [facility] CenterJjlnphfVIPCGBCDMB7502-51-45 05:06:00 Test Item Value Reference Range Interpretation Comments MPV (test code = MPV) 8.0 7.4-10.4 [facility] CenterOqqiogtBJBXYBMRII3053-91-24 05:06:00 Test Item Value Reference Range Interpretation Comments RDW (test code = RDW) 13.6 11.5-14.5 [facility] CenterEayxacwYDHZJKCCNV1102-79-75 05:06:00 Test Item Value Reference Range Interpretation Comments Monocytes # (test code 0.6 See_Comment [Aut omated message] The = Monocytes #) system which generated this result tra nsmitted reference range : <=0.8. The reference r clara was not used to int erpret this result as normal/abnormal . [facility] CenterNopbzitHORLQYGOEM8416-36-73 05:06:00 Test Item Value Reference Range Interpretation Comments Lymphocytes # (test code = Lymphocytes 1.8 1.0-5.5 #) [facility] CenterCmkzvwvUMNTMNQOMU1874-15-79 05:06:00 Test Item Value Reference Range Interpretation Comments Segs (test code = Segs) 70.9 45.0-75.0 [facility] CenterRnmdtycHTDCBBBPRG0206-44-06 05:06:00 Test Item Value Reference Range Interpretation Comments Segs-Bands # (test code = Segs-Bands #) 5.9 1.5-8.1 [facility] CenterOhvlslvMXQIEFOFFU0149-89-53 05:06:00 Test Item Value Reference Range Interpretation Comments Eosinophils (test code = 0.2 See_Comment [A utomated message] The Eosinophils) system which ge nerated this result tra nsmitted reference range : <=4.0. The reference r clara was not used to int erpret this result as normal/abnormal . [facility] CenterCyysckgAOMRBQKNUC2513-86-69 05:06:00 Test Item Value Reference Range Interpretation Comments Basophils (test code = 0.3 See_Comment [Aut omated message] The Basophils) system which ge nerated this result tra nsmitted reference range : <=1.0. The reference r clara was not used to int erpret this result as normal/abnormal . [facility] CenterXvyzesrKVJPLTFFRH0589-07-42 05:06:00 Test Item Value Reference Range Interpretation Comments Monocytes (test code = Monocytes) 7.4 2.0-12.0 [facility] CenterLbhkxikPEHGYCVSGM1816-97-11 05:06:00 Test Item Value Reference Range Interpretation Comments Lymphocytes (test code = Lymphocytes) 21.2 20.0-40.0 [facility]2016-08-30 03:20:00 Test Item Value Reference Range Interpretation Comments U Opiate Scr (test Positive *ABN*(05/27/16 code = U Opiate Scr) 10:20 PM) [facility] [id number] 03:20:00 Test Item Value Reference Range Interpretation Comments U Phencyc Scr (test Negative *NA*(05/27/16 code = U Phencyc Scr) 10:20 PM) [facility] [id number] 03:20:00 Test Item Value Reference Range Interpretation Comments UDS Note (test code = See Note (05/27/16 10:20 UDS Note) PM) [facility] [id number] 03:20:00 Test Item Value Reference Range Interpretation Comments U Casie Scr (test code Negative *NA*(05/27/16 = U Casie Scr) 10:20 PM) [facility] [id number] 03:20:00 Test Item Value Reference Range Interpretation Comments U Benzodia Scr (test Negative *NA*(05/27/16 code = U Benzodia Scr) 10:20 PM) [facility] [id number] 03:20:00 Test Item Value Reference Range Interpretation Comments U Amph Scr (test code Negative *NA*(05/27/16 = U Amph Scr) 10:20 PM) [facility] [id number] 03:20:00 Test Item Value Reference Range Interpretation Comments U Cannab Scr (test Negative *NA*(05/27/16 code = U Cannab Scr) 10:20 PM) [facility] [id number] 03:20:00 Test Item Value Reference Range Interpretation Comments U Cocaine Scr (test Negative *NA*(05/27/16 code = U Cocaine Scr) 10:20 PM) [facility] [id number] 03:20:00 Test Item Value Reference Range Interpretation Comments UA Urobilinogen (test code = UA 0.2 0.1-1.0 Urobilinogen) [facility] [id number] 03:20:00 Test Item Value Reference Range Interpretation Comments UA Leuk Est (test Negative (05/27/16 10:20 code = UA Leuk Est) PM) [facility] [id number] 03:20:00 Test Item Value Reference Range Interpretation Comments UA Nitrite (test code Negative (05/27/16 10:20 = UA Nitrite) PM) [facility] [id number] 03:20:00 Test Item Value Reference Range Interpretation Comments UA Blood (test code = Negative (05/27/16 10:20 UA Blood) PM) [facility] AND [id number] 03:20:00 Test Item Value Reference Range Interpretation Comments UA Spec Grav (test *NA*(05/27/16 10:20 PM) code = UA Spec Grav) [facility] AND [id number] 03:20:00 Test Item Value Reference Range Interpretation Comments UA Color (test code = Yellow *NA*(05/27/16 UA Color) 10:20 PM) [facility] AND [id number] 03:20:00 Test Item Value Reference Range Interpretation Comments UA Turbidity (test code = Clear (05/27/16 10:20 UA Turbidity) PM) [facility] AND [id number] 03:20:00 Test Item Value Reference Range Interpretation Comments UA Glucose (test code Negative (05/27/16 10:20 = UA Glucose) PM) [facility] AND [id number] 03:20:00 Test Item Value Reference Range Interpretation Comments UA pH (test code = UA pH) 6.0 1 5.0-8.0 [facility] AND [id number] 03:20:00 Test Item Value Reference Range Interpretation Comments UA Protein (test code Negative (05/27/16 10:20 = UA Protein) PM) [facility] AND [id number] 03:20:00 Test Item Value Reference Range Interpretation Comments UA Ketones (test code Negative *NA*(05/27/16 = UA Ketones) 10:20 PM) [facility] AND [id number] 03:20:00 Test Item Value Reference Range Interpretation Comments UA Bili (test code = Negative *NA*(05/27/16 UA Bili) 10:20 PM) [facility] AND [id number] 03:20:00 Test Item Value Reference Range Interpretation Comments UA Bacteria (test code = UA Few /HPF Bacteria) [facility] AND [id number] 03:20:00 Test Item Value Reference Range Interpretation Comments UA RBC (test code = 0-2 /HPF See_Comment [Automa bessie message] The UA RBC) system which ge nerated this result tra nsmitted reference range : <=2. The reference range was not used to interpr et this result as marisabel l/abnormal. [facility] [id number] 03:20:00 Test Item Value Reference Range Interpretation Comments UA Sq Epi (test code = UA Sq Moderate /LPF Epi) [facility] [id number] 03:20:00 Test Item Value Reference Range Interpretation Comments UA WBC (test code = UA None Seen (05/27/16 WBC) 10:20 PM) [facility] [employer] [id number] 23:32:00 Test Item Value Reference Range Interpretation Comments CK MB (test code = CK MB) 0.8 0.5-3.6 [facility]toannCARDIAC [id number] 23:32:00 Test Item Value Reference Range Interpretation Comments Total CK (test code = Total CK) 41 12-191 [facility]annPhasor SolutionsAC [id number] 23:32:00 Test Item Value Reference Range Interpretation Comments Troponin-I (test code no gt See_Comment [Auto mated message] The = Troponin-I) system which g enerated this result transmit bessie reference range : <=0.40. The reference r clara was not used to interpr et this result as marisabel l/abnormal. [facility] [employer] [id number] 23:32:00 Test Item Value Reference Range Interpretation Comments CK MB Index (test 2.0 See_Comment [Automate d message] The code = CK MB Index) system w [facility] generated this result transmit bessie reference range : <=2.5. The reference range was not used to interpr et this result as marisabel l/abnormal. [facility] [employer] [id number] 23:32:00 Test Item Value Reference Range Interpretation Comments A/G Ratio (test code = A/G Ratio) 1.0 0.7-1.6 [facility] [employer] [id number] 23:32:00 Test Item Value Reference Range Interpretation Comments Globulin (test code = Globulin) 3.6 2.7-4.2 [facility] [employer] [id number] 23:32:00 Test Item Value Reference Range Interpretation Comments AGAP (test code = AGAP) 10.0 10.0-20.0 [facility]2016-08-29 23:32:00 Test Item Value Reference Range Interpretation Comments B/C Ratio (test code = B/C Ratio) 9 6-25 [facility]2016-08-29 23:32:00 Test Item Value Reference Range Interpretation Comments eGFR (test code = eGFR) 110 [facility]2016-08-29 23:32:00 Test Item Value Reference Range Interpretation Comments Bili Total (test code = Bili Total) 0.6 0.2-1.3 [place] [id number] 23:32:00 Test Item Value Reference Range Interpretation Comments Chloride Lvl (test code = Chloride Lvl) 109 95-109 [facility]2016-08-29 23:32:00 Test Item Value Reference Range Interpretation Comments Creatinine Lvl (test code = Creatinine 0.66 0.50-1.40 Lvl) [facility]2016-08-29 23:32:00 Test Item Value Reference Range Interpretation Comments BUN (test code = BUN) 6 7-22 [facility]2016-08-29 23:32:00 Test Item Value Reference Range Interpretation Comments Calcium Lvl (test code = Calcium Lvl) 8.0 8.5-10.5 [facility]2016-08-29 23:32:00 Test Item Value Reference Range Interpretation Comments Potassium Lvl (test code = Potassium 4.0 3.5-5.1 Lvl) [facility]2016-08-29 23:32:00 Test Item Value Reference Range Interpretation Comments Glucose Lvl (test code = Glucose Lvl) 81 70-99 [facility]2016-08-29 23:32:00 Test Item Value Reference Range Interpretation Comments Sodium Lvl (test code = Sodium Lvl) 139 135-145 [facility]2016-08-29 23:32:00 Test Item Value Reference Range Interpretation Comments Albumin Lvl (test code = Albumin Lvl) 3.7 3.5-5.0 [facility]2016-08-29 23:32:00 Test Item Value Reference Range Interpretation Comments ALT (test code = ALT) 20 See_Comment [Auto mated message] The system which ge nerated this result transmit bessie reference range : <=65. The reference range was not used to interpr et this result as marisabel l/abnormal. [facility]2016-08-29 23:32:00 Test Item Value Reference Range Interpretation Comments CO2 (test code = CO2) 24 24-32 [facility]2016-08-29 23:32:00 Test Item Value Reference Range Interpretation Comments Alk Phos (test code = Alk Phos) 70 39-136 [facility]2016-08-29 23:32:00 Test Item Value Reference Range Interpretation Comments AST (test code = AST) 18 See_Comment [Auto mated message] The system which ge nerated this result transmit bessie reference range : <=37. The reference range was not used to interpr et this result as marisabel l/abnormal. [facility]2016-08-29 23:32:00 Test Item Value Reference Range Interpretation Comments Total Protein (test code = Total 7.3 6.4-8.4 Protein) [place] [id number] 23:32:00 Test Item Value Reference Range Interpretation Comments S Preg (test code = S Negative *NA*(05/27/16 Preg) 6:32 PM) [facility] CenterJcwzltsJHRRKYXJLR0611-64-41 23:32:00 Test Item Value Reference Range Interpretation Comments PTT (test code = PTT) 30.2 s 22.9-35.8 [facility] CenterLcdaymtODPKWBETUM8861-86-07 23:32:00 Test Item Value Reference Range Interpretation Comments INR (test code = INR) 1.06 0.85-1.17 [facility] CenterVriwmihHGNNCGMVUN5996-37-00 23:32:00 Test Item Value Reference Range Interpretation Comments PT (test code = PT) 14.1 s 12.0-14.7 [facility] CenterVnbsrheBNGJRXMRIQ4970-92-46 23:32:00 Test Item Value Reference Range Interpretation Comments MPV (test code = MPV) 7.4 7.4-10.4 [facility] CenterXoaenhuYMFBEYCJOW8101-69-88 23:32:00 Test Item Value Reference Range Interpretation Comments Platelet (test code = Platelet) 259 133-450 [facility] CenterUctsamcFVWKFMBKDS3438-20-72 23:32:00 Test Item Value Reference Range Interpretation Comments Hgb (test code = Hgb) 14.0 12.0-16.0 [facility] CenterReaswndPMUJSIKGGI1362-42-84 23:32:00 Test Item Value Reference Range Interpretation Comments WBC (test code = WBC) 4.4 3.7-10.4 [facility] CenterLkrmifwXQYMEZTLPC4549-99-39 23:32:00 Test Item Value Reference Range Interpretation Comments RBC (test code = RBC) 4.29 4.20-5.40 [facility] CenterDtwykcjKABNTGYCUL4677-51-41 23:32:00 Test Item Value Reference Range Interpretation Comments MCHC (test code = MCHC) 33.9 32.0-36.0 [facility] CenterEaitwhbEDPCJIMLVP2315-02-99 23:32:00 Test Item Value Reference Range Interpretation Comments RDW (test code = RDW) 13.5 11.5-14.5 [facility] CenterRiuyiicVCERNCNYPH3223-27-83 23:32:00 Test Item Value Reference Range Interpretation Comments MCH (test code = MCH) 32.5 pg 27.0-31.0 [facility] CenterWwspmzcIZIJUHRTLT0424-96-66 23:32:00 Test Item Value Reference Range Interpretation Comments Hct (test code = Hct) 41.2 36.0-48.0 [facility] CenterRxuopkqSEWCRVNVQD2475-87-82 23:32:00 Test Item Value Reference Range Interpretation Comments MCV (test code = MCV) 96.0 80.0-98.0 [facility] CenterWychobfXWXTDJUSAL4107-43-41 23:32:00 Test Item Value Reference Range Interpretation Comments Lymphocytes # (test code = Lymphocytes 1.8 1.0-5.5 #) [facility] CenterYasyulcXGXFEUPLQF7791-14-06 23:32:00 Test Item Value Reference Range Interpretation Comments Monocytes # (test code 0.3 See_Comment [Aut omated message] The = Monocytes #) system which generated this result tra nsmitted reference range : <=0.8. The reference r clara was not used to int erpret this result as normal/abnormal . [facility] CenterBxerxlbHTTHBXZCYG1774-12-96 23:32:00 Test Item Value Reference Range Interpretation Comments Monocytes (test code = Monocytes) 5.7 2.0-12.0 [facility] CenterFjhppepHOJNQPUFIM5687-17-22 23:32:00 Test Item Value Reference Range Interpretation Comments Eosinophils (test code = 0.4 See_Comment [A utomated message] The Eosinophils) system which ge nerated this result tra nsmitted reference range : <=4.0. The reference r clara was not used to int erpret this result as normal/abnormal . [facility] CenterCzwuaezKMVUIZBYUP2958-68-32 23:32:00 Test Item Value Reference Range Interpretation Comments Basophils (test code = 0.7 See_Comment [Aut omated message] The Basophils) system which ge nerated this result tra nsmitted reference range : <=1.0. The reference r clara was not used to int erpret this result as normal/abnormal . [facility] CenterUxgblraULDYRLITML9757-66-16 23:32:00 Test Item Value Reference Range Interpretation Comments Segs-Bands # (test code = Segs-Bands #) 2.3 1.5-8.1 [facility] CenterXmavbtrWGMXGRVEMQ2459-77-74 23:32:00 Test Item Value Reference Range Interpretation Comments Lymphocytes (test code = Lymphocytes) 41.5 20.0-40.0 [facility] CenterGiukqycPIYDQESSEB9302-14-70 23:32:00 Test Item Value Reference Range Interpretation Comments Segs (test code = Segs) 51.7 45.0-75.0 [place] [id number] 23:32:00 Test Item Value Reference Range Interpretation Comments Phenytoin Total (test code = Phenytoin 0.8 10.0-20.0 Total) [place] [id number] 23:32:00 Test Item Value Reference Range Interpretation Comments Salicylate Lvl (test 6.0 See_Comment [Autom ated message] The code = Salicylate Lvl) syste m which generated this result tra nsmitted reference range : <=30.0. The reference r clara was not used to int erpret this result as normal/abnormal . [place] [id number] 23:32:00 Test Item Value Reference Range Interpretation Comments Acetaminoph Lvl (test code = 27 10-20 Acetaminoph Lvl) [place] [id number] 23:32:00 Test Item Value Reference Range Interpretation Comments Ethanol Lvl (test code = Ethanol <3.0 mg/dL Lvl) [place] [id number] 23:32:00 Test Item Value Reference Range Interpretation Comments Etoh (%) (test code = Etoh (%)) <0.003 % [facility]QrelizyMMCSOFHFGBRK8811-89-31 20:13:00 Test Item Value Reference Range Interpretation Comments AGAP (test code = AGAP) 8.5 10.0-20.0 [facility] HospitalUdduhufXQZNYRPGNFSP5196-92-86 20:13:00 Test Item Value Reference Range Interpretation Comments CO2 (test code = CO2) 30 24-32 [facility] HospitalZewwnwzXRONJUGDIZJB8463-91-91 20:13:00 Test Item Value Reference Range Interpretation Comments Creatinine Lvl (test code = Creatinine 0.9 0.5-1.4 Lvl) [facility] HospitalJaaoaefBHINMGGFPDTA9182-35-86 20:13:00 Test Item Value Reference Range Interpretation Comments BUN (test code = BUN) 16 7-22 [facility] HospitalTjpimmtTQTREXPKGZUB5398-93-59 20:13:00 Test Item Value Reference Range Interpretation Comments Calcium Lvl (test code = Calcium Lvl) 8.1 8.5-10.5 [facility] HospitalBkqaydrNGOWZKSWVBCZ9803-30-87 20:13:00 Test Item Value Reference Range Interpretation Comments Glucose Lvl (test code = Glucose Lvl) 92 70-99 [facility] HospitalLoxuosvNZPOPKRJNPKU7751-34-70 20:13:00 Test Item Value Reference Range Interpretation Comments Sodium Lvl (test code = Sodium Lvl) 139 135-145 [facility] HospitalSwtxpjaUEYZMQJFPOPK9328-39-06 20:13:00 Test Item Value Reference Range Interpretation Comments Chloride Lvl (test code = Chloride Lvl) 104 95-109 [facility] HospitalOupjpfrOQIISPTZBQLM6607-70-34 20:13:00 Test Item Value Reference Range Interpretation Comments Potassium Lvl (test code = Potassium 3.5 3.5-5.1 Lvl) [facility] HospitalOqrvoocPCHKVNUSNUSO9637-51-70 20:13:00 Test Item Value Reference Range Interpretation Comments eGFR (test code = eGFR) 80 [facility]mfqgdxJZAGWCJOORFKU2003-84-00 20:13:00 Test Item Value Reference Range Interpretation Comments S Preg (test code = S Negative *NA*(07/27/15 Preg) 3:13 PM) [facility]dptmxdTPTDKXXLEF2366-73-41 20:13:00 Test Item Value Reference Range Interpretation Comments Lymphocytes # (test code = Lymphocytes 2.4 1.0-5.5 #) [facility] CenterJwfimrpBRJXFKWUWP7099-67-09 20:13:00 Test Item Value Reference Range Interpretation Comments Monocytes # (test code 0.4 See_Comment [Aut omated message] The = Monocytes #) system which generated this result tra nsmitted reference range : <=0.8. The reference r clara was not used to int erpret this result as normal/abnormal . [facility] CenterCskddtjBQRQEAHBYO8520-10-55 20:13:00 Test Item Value Reference Range Interpretation Comments Eosinophils (test code = 0.8 See_Comment [A utomated message] The Eosinophils) system which ge nerated this result tra nsmitted reference range : <=4.0. The reference r clara was not used to int erpret this result as normal/abnormal . [facility] CenterKwiahzhXDEBVHLAJT2646-51-18 20:13:00 Test Item Value Reference Range Interpretation Comments Segs-Bands # (test code = Segs-Bands #) 2.6 1.5-8.1 [facility] CenterOhwrhxxZXSGMMFWYP5220-03-29 20:13:00 Test Item Value Reference Range Interpretation Comments Basophils (test code = 0.3 See_Comment [Aut omated message] The Basophils) system which ge nerated this result tra nsmitted reference range : <=1.0. The reference r clara was not used to int erpret this result as normal/abnormal . [facility] CenterYlwmannXHDYQOVHRN7208-32-01 20:13:00 Test Item Value Reference Range Interpretation Comments Monocytes (test code = Monocytes) 7.5 2.0-12.0 [facility] CenterMkagrluJWADIBTBOZ6528-21-57 20:13:00 Test Item Value Reference Range Interpretation Comments Segs (test code = Segs) 47.1 45.0-75.0 [facility] CenterSfimxrjJEGPHRBPFU8266-31-07 20:13:00 Test Item Value Reference Range Interpretation Comments Lymphocytes (test code = Lymphocytes) 44.3 20.0-40.0 [facility] CenterYguksyuFFJTNHGLKR7259-00-92 20:13:00 Test Item Value Reference Range Interpretation Comments Macrocyte (test code = 1+ *ABN*(07/27/15 Macrocyte) 3:13 PM) [facility] CenterSouazcoSTEPDEUBKP9718-65-53 20:13:00 Test Item Value Reference Range Interpretation Comments Hct (test code = Hct) 41.2 36.0-48.0 [facility] CenterGnxuarpMWBFTKAAQU6996-88-67 20:13:00 Test Item Value Reference Range Interpretation Comments RBC (test code = RBC) 4.15 4.20-5.40 [facility] CenterFoomimcLUZTQGKKGI4867-16-64 20:13:00 Test Item Value Reference Range Interpretation Comments WBC (test code = WBC) 5.5 3.7-10.4 [facility] CenterHbfszoqRYLTUQJELN5508-07-84 20:13:00 Test Item Value Reference Range Interpretation Comments Platelet (test code = Platelet) 351 133-450 [facility] CenterLbuhpurCFKKMYSWNO5129-78-09 20:13:00 Test Item Value Reference Range Interpretation Comments MPV (test code = MPV) 8.1 7.4-10.4 [facility] CenterVbtuevtFGNRRUUMPE4633-93-61 20:13:00 Test Item Value Reference Range Interpretation Comments MCH (test code = MCH) 32.0 pg 27.0-31.0 [facility] CenterQvtrlrvGOHTZTJELJ4702-16-06 20:13:00 Test Item Value Reference Range Interpretation Comments MCHC (test code = MCHC) 32.3 32.0-36.0 [facility] CenterWwmdkhsQVRQOUFWQQ4213-26-83 20:13:00 Test Item Value Reference Range Interpretation Comments RDW (test code = RDW) 13.7 11.5-14.5 [facility] CenterWvbkzbtMEEJPMIOKR8133-91-53 20:13:00 Test Item Value Reference Range Interpretation Comments MCV (test code = MCV) 99.1 80.0-98.0 [facility] CenterCdciaxjICUOBOZKUR1426-73-28 20:13:00 Test Item Value Reference Range Interpretation Comments Hgb (test code = Hgb) 13.3 12.0-16.0 [facility]
[2021-09-22] MEDS ORDERED: HYDROCODONE/APAP 7.5/325 MG TAB ONE (15:53)
[2021-09-22] MEDS ORDERED: IBUPROFEN 200 MG TAB PO ONE (15:53)
[2021-09-22] MEDS ORDERED: TETANUS & DIPHTHERIA TOX,ADULT 0.5 ML VIAL ONE (15:54)
[2021-09-22] MEDS ORDERED: LIDOCAINE 1% MPF 5 ML VIAL ONE (16:02)
[2021-09-22] MEDS ORDERED: BUPIVACAINE 0.5% PF 10 ML VIAL ONE (16:02)
--- NOTE | 2021-09-22 16:09 | RAD REPORT ---
EXAM DESCRIPTION: RAD - Hand Right 3 View - 09/22/2021 3:45 pm CLINICAL HISTORY: ANIMAL BITE COMPARISON: No comparisons FINDINGS: No acute fracture. No malalignment. No significant focal degenerative changes. IMPRESSION: No acute osseous abnormality involving the right hand.
--- NOTE | 2021-09-22 16:32 | EDPHYS ---
Physician Documentation [facility] Name: Katia Noel Age: 46 yrs Sex: Female : 1975 Arrival Date: 09/22/2021 Time: 15:07 Bed 11 Private MD: ED Physician Christa Khan HPI: 09/22 15:35 This 46 yrs old Female presents to ER via Ambulatory with complaints of Dog Bite. cp 15:35 The patient was bitten on the right hand, by a dog, in an unprovoked manner, at a cp friend's house. Onset: The symptoms/episode began/occurred just prior to arrival. Animal information: The animal was reported to appear healthy. Secondary to the bite the patient reports 15:35 Associated signs and symptoms: Pertinent positives: bony tenderness, Pertinent cp negatives: erythema at site, fever, motor deficit, numbness distal to wound, suspected foreign body. 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 - Social history:: Smoking status: Patient reports the use of cigarette tobacco products, smokes one-half pack cigarettes per day, Patient/guardian denies using alcohol. ROS: 15:40 Skin: Positive for of the dorsum of right hand, dog bite. cp 15:40 MS/extremity: Positive for pain, of the right hand, Negative for decreased range of cp motion. 15:40 All other systems are negative. Exam: 15:45 Constitutional: The patient appears in no acute distress, alert, awake, well developed, cp well nourished, uncomfortable. 15:45 Head/Face: Normocephalic, atraumatic. cp 15:45 Cardiovascular: Rate: tachycardic. 15:45 Respiratory: the patient does not display signs of respiratory distress, Respirations: normal, no use of accessory muscles, no retractions, labored breathing, is not present. 15:45 Skin: injury, laceration(s), the wound is approximately 1.5 cm(s), of the proximal to web space dorsal side of right third and fourth fingers, that can be described as no foreign body, linear, with mild bleeding, mild swelling, mild ecchymosis. Vital Signs: 15:17 BP 128 / 95; Pulse 100; Resp 18; Temp 98.3(O); Pulse Ox 99% on R/A; Weight 79.38 kg; ld1 Height 5 ft. 6 in. (167.64 cm); Pain 8/10; 15:17 Body Mass Index 28.25 (79.38 kg, 167.64 cm) ld1 MDM: 15:29 Patient medically screened. cp 15:50 ED course: [place] animal control notified. cp 15:57 Test interpretation: by ED physician or midlevel provider: xrays of right hand negative cp for fracture. 16:00 Differential diagnosis: superficial laceration, tendon injury, vascular injury, rabies, cp cellulitis. 16:26 Data reviewed: vital signs, nurses notes, radiologic studies, plain films. Response to cp treatment: the patient's symptoms have markedly improved after treatment, and as a result, I will discharge patient. 09/22 15:32 Order name: XRAY Hand RIGHT 3 View; Complete Time: 16:12 cp 09/22 16:12 Interpretation: Report reviewed. 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 Exp: ld1 02/09/2023. Lot #: [id number]. } Route: IM; Site: left deltoid; 15:58 Follow up: Response: No adverse reaction ld1 15:57 Drug: Hydrocodone-Acetaminophen (7.5 mg-325 mg) 1 tabs Route: PO; ld1 15:58 Follow up: Response: No adverse reaction ld1 15:57 Drug: Ibuprofen 800 mg Route: PO; ld1 15:58 Follow up: Response: No adverse reaction ld1 16:43 Drug: Doxycycline 200 mg Route: PO; ld1 Disposition: 16:40 Chart complete. cp Disposition Summary: 09/22/21 16:32 Discharge Ordered Location: Home cp Problem: new cp Symptoms: have improved cp Condition: Stable cp Diagnosis - Bitten by dog, initial encounter cp - Laceration without foreign body of right hand, initial encounter cp Followup: cp - With: Karsten Palmer MD - When: 2 - 3 days - Reason: Wound Recheck Discharge Instructions: - Discharge Summary Sheet cp - Nonsutured Laceration Care cp - Animal Bite, Adult cp Forms: - Medication Reconciliation Form cp - Thank You Letter cp - Antibiotic Education cp - Prescription Opioid Use cp Prescriptions: - Ibuprofen 800 mg Oral Tablet - take 1 tablet by ORAL route every 8 hours As needed take with food; 30 tablet; cp Refills: 0, Product Selection Permitted - Doxycycline Hyclate 100 mg Oral Tablet - take 1 tablet by ORAL route every 12 hours for 14 days; 28 tablet; Refills: 0, cp Product Selection Permitted - Tramadol 50 mg Oral Tablet - take 1 tablet by ORAL route every 8 hours as needed; 12 tablet; Refills: 0, cp Product Selection Permitted Addendum: 09/23/2021 18:53 Co-signature as Attending Physician, Christa Khna MD I agree with the assessment m a2 and plan of care. Signatures: Dispatcher [employer] EDMS Ac Haley PA PA cp Christa Khan MD MD ma2 Mónica Rios RN RN ld1 Corrections: (The following items were deleted from the chart) 09/22 15:19 15:18 Allergies: No Known Allergies; ld1 ld1
--- NOTE | 2021-09-22 16:32 | ER ---
Nurse's Notes [facility] Name: Katia Noel Age: 46 yrs Sex: Female : 1975 Arrival Date: 09/22/2021 Time: 15:07 Bed 11 Private MD: Diagnosis: Bitten by dog, initial encounter;Laceration without foreign body of right hand, initial encounter Presentation: 09/22 15:17 Chief complaint: Patient states: Dog bite to right hand 1 hour ago. Coronavirus screen: ld1 At this time, the client does not indicate any symptoms associated with coronavirus-19. Ebola Screen: No symptoms or risks identified at this time. Initial Sepsis Screen: Does the patient meet any 2 criteria? No. Patient's initial sepsis screen is negative. Does the patient have a suspected source of infection? No. Patient's initial sepsis screen is negative. Risk Assessment: Do you want to hurt yourself or someone else? Patient reports no desire to harm self or others. Onset of symptoms was September 22, 2021. 15:17 Method Of Arrival: Ambulatory ld1 15:17 Acuity: UYMI 4 ld1 Triage Assessment: 15:18 Bite description: bite sustained to right hand by a dog, animal information: ld1 vaccination(s) is current. General: Appears in no apparent distress. comfortable, Behavior is calm, cooperative, appropriate for age. Pain: Complains of pain in right hand. Respiratory: Airway is patent Respiratory effort is even, unlabored, Respiratory pattern is regular, symmetrical. 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 - Social history:: Smoking status: Patient reports the use of cigarette tobacco products, smokes one-half pack cigarettes per day, Patient/guardian denies using alcohol. Vital Signs: 15:17 BP 128 / 95; Pulse 100; Resp 18; Temp 98.3(O); Pulse Ox 99% on R/A; Weight 79.38 kg; ld1 Height 5 ft. 6 in. (167.64 cm); Pain 8/10; 15:17 Body Mass Index 28.25 (79.38 kg, 167.64 cm) ld1 ED Course: 15:07 Patient arrived in ED. ds1 15:18 Triage completed. ld1 15:18 Arm band placed on left wrist. ld1 15:23 Ac Haley PA is PHCP. cp 15:23 Christa Khan MD is Attending Physician. cp 15:44 XRAY Hand RIGHT 3 View In Process Unspecified. EDMS 16:30 Karsten Palmer MD is Referral Physician. cp 16:43 Velcro wrist splint applied to right wrist. Wound care: to DOG BITE located on dorsum mh5 of right hand was cleaned with soap and water, soaked in normal saline solution, debrided using irrigated with normal saline, dressed with STRISTRIPS. 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 Exp: ld1 02/09/2023. Lot #: [id number]. } Route: IM; Site: left deltoid; 15:58 Follow up: Response: No adverse reaction ld1 15:57 Drug: Hydrocodone-Acetaminophen (7.5 mg-325 mg) 1 tabs Route: PO; ld1 15:58 Follow up: Response: No adverse reaction ld1 15:57 Drug: Ibuprofen 800 mg Route: PO; ld1 15:58 Follow up: Response: No adverse reaction ld1 16:43 Drug: Doxycycline 200 mg Route: PO; ld1 Outcome: 16:32 Discharge ordered by MD. cp 16:46 Patient left the ED. mh5 Signatures: Dispatcher [employer] [facility] Dee Madsen ds Ac Haley PA PA cp Martinez, Maria 5 Mónica Rios RN RN ld1 Corrections: (The following items were deleted from the chart) 15:19 15:18 Allergies: No Known Allergies; ld1 ld1
[2021-09-22] MEDS ORDERED: DOXYCYCLINE 100 MG CAP PO ONE (16:40)
[2021-09-22 16:53] VITALS: BP 128/95; TEMP 98.3; O2SAT 99
== END 2021-09-22 16:46 | disposition home or self-care (01) ==
LOC: ER 15:04
DX: S61.411A Laceration without foreign body of right hand, initial encounter (principal); W54.0XXA Bitten by dog, initial encounter; Y93.9 Activity, unspecified; Y92.9 Unspecified place or not applicable; Z23 Encounter for immunization
CPT/HCPCS: 90471; 90714; 99284

== ENCOUNTER 2024-11-09 20:10 | Emergency (ER) | payer OTHER ==
[2024-11-09] MEDS ORDERED: KETOROLAC 30 MG/ML INJ ONE (20:20)
[2024-11-09] MEDS ORDERED: ACETAMINOPHEN 500 MG TAB ONE (20:20)
[2024-11-09] MEDS ORDERED: DIAZEPAM 5 MG TABLET ONE (20:21)
--- NOTE | 2024-11-09 21:28 | RAD REPORT ---
EXAMINATION: ONE VIEW CHEST XR CLINICAL INDICATION: Female, 49 years old.,CHEST PAIN TECHNIQUE: Frontal chest projection is submitted. Examination is limited by patient positioning and t echnique. COMPARISON: No prior exam. FINDINGS: The lungs are somewhat suboptimally inflated. Central interstitial prominence with no focal consolida tion. No pneumothorax or sizable effusion. The heart is normal in size. Mediastinal contours are unremarkable. IMPRESSION: Central interstitial prominence, may reflect mild central congestion.
--- NOTE | 2024-11-09 21:30 | RAD REPORT ---
EXAMINATION: XR RIGHT SHOUDLER CLINICAL INDICATION: Female, 49 years old. PAIN RIGHT TECHNIQUE:Two view radiograph of the right shoulder were obtained. COMPARISON: No prior exam. FINDINGS: No acute bone or joint abnormality detected. Mild degenerative changes at the AC joint. IMPRESSION: No acute osseous abnormalities. Mild AC joint degenerative changes.
--- NOTE | 2024-11-09 21:31 | RAD REPORT ---
EXAMINATION: XR RIGHT HUMERUS CLINICAL INDICATION: Female, 49 years old. PAIN RIGHT TECHNIQUE: 2 view radiograph of right humerus were obtained. COMPARISON: No prior exam. FINDINGS: No evidence of fracture or dislocation. Normal alignment. No evidence of arthropathy or oth er focal bone lesion. Soft tissues are unremarkable. IMPRESSION: No acute or significant abnormalities.
--- NOTE | 2024-11-09 21:42 | EDPHYS ---
Physician Documentation [facility] Name: Katia Noel Age: 49 yrs Sex: Female : 1975 Arrival Date: 11/09/2024 Time: 20:10 Bed IW1 Private MD: ED Physician Valdez Clarke HPI: 11/09 20:25 This 49 yrs old Female presents to ER via Ambulatory with complaints of Fall ec2 Injury, Shoulder Injury. 20:25 Patient arrives today for evaluation after a ground-level fall. Patient complaining of ec2 shoulder pain. Reports that she had stepped out of the shower. Normalcy, no blood thinners, no head or neck pain. Complaint of right shoulder and right humerus pain.. TERRA COTTA ROOFER: 22:00 unknown cm10 Historical: - Allergies: 20:12 PENICILLINS; cm10 - PMHx: 20:12 Hypothyroidism; Seizure; cm10 - Immunization history:: Adult Immunizations up to date. - Infectious Disease History:: Denies. - Social history:: Smoking status: Reported history of juuling and/or vaping. ROS: 20:25 Constitutional: as per hpi ec2 Exam: 20:25 Constitutional: GEN: No acute distress HEENT: -Head: no deformities -Eyes: EOMI CV: ec2 regular rate LUNGS: no respiratory distress ABD: non-tender SKIN: no wounds appreciated MSK: No C/T/L spine deformities RUE with TTP to the proximal right humerus LUE w/o bony deformity RLE w/o bony deformity LLE w/o bony deformity NEURO: moves all extremities equally, GCS 15 (E4, V5, M6) Vital Signs: 20:17 BP 126 / 81; Pulse 84; Resp 15; Temp 98.5; Pulse Ox 96% ; Weight 99.79 kg; Height 5 ft. cm10 6 in. ; Pain 10/10; 20:17 Body Mass Index 35.51 (99.79 kg, 167.64 cm) cm10 20:17 Pain Scale: Adult cm10 MDM: 20:15 Medical Screening Exam initiated ec2 20:25 Data reviewed: vital signs, nurses notes. ED course: Patient arrives today for right ec2 shoulder pain. Emanation yields MSK findings as above. Will place patient in sling, obtain radiographs and treat the patient's pain. Differential diagnosis includes shoulder contusion, humerus fracture, doubt shoulder dislocation. Patient is intact distally with her neurovascular status. Considered processes as well as clavicle fracture. 21:41 ED course: Radiographs negative, will discharge home. Discharge patient with a caramel. ec2 Return precautions given. Presentation consistent with contusion.. 11/09 20:15 Order name: Shoulder Right (2 View) XRAY; Complete Time: 21:41 cm10 11/09 20:15 Order name: Humerus Right XRAY; Complete Time: 21:41 cm10 11/09 20:15 Order name: Chest Single View XRAY; Complete Time: 21:29 cm10 11/09 20:17 Order name: Sling; Complete Time: 22:00 ec2 Administered Medications: 20:27 Drug: Diazepam PO 5 mg PO once Route: PO; cm10 21:59 Follow up: Response: No adverse reaction cm10 20:27 Drug: Ketorolac IM 30 mg IM once Route: IM; Site: right gluteus; cm10 21:59 Follow up: Response: No adverse reaction cm10 20:27 Drug: Acetaminophen PO 1000 mg PO once Route: PO; cm10 21:59 Follow up: Response: No adverse reaction cm10 Disposition Summary: 11/09/24 21:42 Discharge Ordered Notes: Location: Home ec2 Condition: Stable ec2 Diagnosis - Pain in right shoulder ec2 Followup: ec2 - With: Private Physician - When: - Reason: Re-evaluation by your physician Discharge Instructions: - Discharge Summary Sheet ec2 - Joint Pain ec2 Forms: - Work release form ec2 - Medication Reconciliation Form ec2 - Antibiotic Education ec2 - Prescription Opioid Use ec2 - Patient Portal Instructions ec2 - Leadership Thank You Letter ec2 Prescriptions: - methocarbamol 500 mg Oral tablet - take 2 tablets ORAL route 4 times per day; 30 tablet; Refills: 0, Product ec2 Selection Permitted Signatures: Dispatcher [employer] Brianne Pike RN RN cm10 Valdez Clarke MD MD ec2 Corrections: (The following items were deleted from the chart) 20:16 20:16 Humerus Right+RAD.RAD.BRZ ordered. EDMS EDMS 20:16 20:16 Chest Single View+RAD.RAD.BRZ ordered. EDMS EDMS
--- NOTE | 2024-11-09 21:42 | ER ---
Nurse's Notes [facility] Name: Katia Noel Age: 49 yrs Sex: Female : 1975 Arrival Date: 11/09/2024 Time: 20:10 Bed IW1 Private MD: Diagnosis: Pain in right shoulder Presentation: 11/09 20:12 Chief complaint: Patient states: Slip and fall coming out of shower. Pt complaining of cm10 right shoulder pain. Coronavirus screen: Client denies travel out of the [place] in the last 14 days. Ebola Screen: Patient denies travel to an Ebola-affected area in the 21 days before illness onset. Initial Sepsis Screen: Does the patient meet any 2 criteria? No. Patient's initial sepsis screen is negative. Does the patient have a suspected source of infection? No. Patient's initial sepsis screen is negative. Risk Assessment: Do you want to hurt yourself or someone else? Patient reports no desire to harm self or others. Onset of symptoms was November 09, 2024. 20:12 Method Of Arrival: Ambulatory cm10 20:17 Acuity: YUMI 4 cm10 Triage Assessment: 20:15 General: Appears in no apparent distress. uncomfortable, Behavior is calm, cooperative. cm10 Pain: Complains of pain in anterior aspect of right shoulder and right bicep Pain currently is 10 out of 10 on a pain scale. Neuro: No deficits noted. Level of Consciousness is awake, alert, obeys commands, Oriented to person, place, time, situation, Appropriate for age. Respiratory: No deficits noted. Airway is patent Respiratory effort is even, unlabored, Respiratory pattern is regular, symmetrical. Musculoskeletal: No deficits noted. Range of motion: limited in right shoulder. CLERK GUIDE: 22:00 unknown cm10 Historical: - Allergies: 20:12 PENICILLINS; cm10 - PMHx: 20:12 Hypothyroidism; Seizure; cm10 - Immunization history:: Adult Immunizations up to date. - Infectious Disease History:: Denies. - Social history:: Smoking status: Reported history of juuling and/or vaping. Screenin:59 [facility] ED Fall Risk Assessment (Adult) History of falling in the last 3 months, cm10 including since admission Yes- single mechanical fall (1 pt) Confusion or Disorientation No (0 pts) Intoxicated or Sedated No (0 pts) Impaired Gait No (0 pts) Mobility Assist Device Used No (0 pt) Altered Elimination No (0 pt) Score/Fall Risk Level 0 - 2 = Low Risk Oriented to surroundings, Maintained a safe environment, Hourly rounding (assess needs \T\ fall precautionary measures) done. Abuse screen: Denies threats or abuse. Denies injuries from another. Nutritional screening: No deficits noted. Tuberculosis screening: No symptoms or risk factors identified. Vital Signs: 20:17 BP 126 / 81; Pulse 84; Resp 15; Temp 98.5; Pulse Ox 96% ; Weight 99.79 kg; Height 5 ft. cm10 6 in. ; Pain 10/10; 20:17 Body Mass Index 35.51 (99.79 kg, 167.64 cm) cm10 20:17 Pain Scale: Adult cm10 ED Course: 20:10 Patient arrived in ED. im 20:11 Valdez Clarke MD is Attending Physician. cm10 20:13 Arm band placed on left wrist. Patient placed in waiting room. cm10 20:17 Triage completed. cm10 21:14 Shoulder Right (2 View) XRAY In Process Unspecified. EDMS 21:15 Humerus Right XRAY In Process Unspecified. EDMS 21:15 Chest Single View XRAY In Process Unspecified. EDMS 21:57 Brianne Estrada, RN is Primary Nurse. cm10 21:59 Patient has correct armband on for positive identification. Provided Education on: cm10 FOLLOW-UP INSTRUCTIONS.. 21:59 No provider procedures requiring assistance completed. Patient did not have IV access cm10 during this emergency room visit. Sling applied to right arm. Administered Medications: 20:27 Drug: Diazepam PO 5 mg PO once Route: PO; cm10 21:59 Follow up: Response: No adverse reaction cm10 20:27 Drug: Ketorolac IM 30 mg IM once Route: IM; Site: right gluteus; cm10 21:59 Follow up: Response: No adverse reaction cm10 20:27 Drug: Acetaminophen PO 1000 mg PO once Route: PO; cm10 21:59 Follow up: Response: No adverse reaction cm10 Medication: 21:59 VIS not applicable for this client. cm10 Outcome: 21:42 Discharge ordered by . ec2 21:59 Discharged to home ambulatory, with family, cm10 21:59 Condition: good 21:59 Discharge instructions given to patient, Instructed on discharge instructions, follow up and referral plans. medication usage, Demonstrated understanding of instructions, follow-up care, medications, Prescriptions given X 1, 22:00 Patient left the ED. cm10 Signatures: Dispatcher [employer] Macey Bhatti Clarissa RN RN cm10 Valdez Clarke MD MD ec2
[2024-11-10 08:49] VITALS: BP 126/81; TEMP 98.5; O2SAT 96
== END 2024-11-09 22:00 | disposition home or self-care (01) ==
LOC: ER 20:10
DX: M25.511 Pain in right shoulder (principal); W18.30XA Fall on same level, unspecified, initial encounter
CPT/HCPCS: 71045